=== PATIENT | male | born 1955 | race Caucasian/White ===

== ENCOUNTER 2016-09-29 11:25 | Inpatient (IN) | payer OTHER ==
[~2016-09-29] VITALS: Ht 177.8 cm; Wt 122.3 kg
[~2016-09-29 11:25] MED LIST: AMAN50SY PO; AMLO5TAB2 PO; DOCU100C PO; FURO40TA PO; KETOC2%T TOPICAL; LORA-373 PO; LURA80 PO; POTA-88 PO; PROP20TA3 PO; SERO300T PO; SODI1TAB PO; XARE20TA PO
[2016-09-29 12:00] VITALS: BP 145/86; PULSE 81; RESP 16; TEMP 99
[2016-09-29 12:05] VITALS: BP 145/86; PULSE 81; RESP 18; O2SAT 95
--- NOTE | 2016-09-29 12:05 | PD ---
HPI Chief Complaint: Psychiatric Symptoms Time Seen by Provider: 11:58 Travel History International Travel<30 days: No Contact w/Intl Traveler<30days: No Traveled to known affect area: No History of Present Illness HPI 61-year-old male that presents to the ED for evaluation of psych. Patient has a chronic history of schizophrenia and he was just released from [facility]. Apparently patient has been more seclusive and aggressive towards staff at the facility where he staying at. Patient denies any medical complaints. On my initial examination patient states that he doesn't want talk to anybody unless I tell him why he was Pritchard acted. Per patient there is nothing wrong with him. Per patient he is not aggressive a healing seen things. Per patient he refuses any blood work or anything. Patient denies any injuries. Again his very aggressive but at this time his calm and with redirection he calms down. Patient was just discharged from [facility]. PFS Past Medical History High Cholesterol: Yes Diminished Hearing: No Psychiatric: Yes Schizophrenia: Yes (HX OF FINE TREMORS(UPPER LIMBS)) Past Surgical History Neurologic Surgery: Yes (FUSSION OF [id number]) Social History Alcohol Use: No (DENIES) Tobacco Use: No Substance Use: No (DENIES) Allergies-Medications (Allergen,Severity, Reaction): Coded Allergies: No Known Allergies (Verified , 01/23/14) Reported Meds & Prescriptions Reported Meds & Active Scripts Active Amantadine HCl (Amantadine Hcl) 50 Mg/5 Ml Syrp 100 Mg PO BID 60 Days Reported Nizoral Topical Shampoo (Ketoconazole) 2% Sham 1 Applic TOPICAL DAILY Apply to scalp Seroquel (Quetiapine Fumarate) 300 Mg Tab 600 Mg PO HS Propranolol (Propranolol HCl) 20 Mg Tab 20 Mg PO BID Docusate Sodium 100 Mg Cap 100 Mg PO BID Sodium Chloride 1 Gm Tab 1 Gm PO BID Lorazepam 0.5 Mg Tab 0.5 Mg PO TID PRN Latuda (Lurasidone) 80 Mg Tab 80 Mg PO DAILY Xarelto (Rivaroxaban) 20 Mg Tab 20 Mg PO WITH DINNER Klor-Con M10 (Potassium Chloride Microencaps) 10 Meq Tab 10 Meq PO DAILY Furosemide 40 Mg Tab 40 Mg PO DAILY Amlodipine (Amlodipine Besylate) 5 Mg Tab 5 Mg PO DAILY Review of Systems ROS Limitations: Uncooperative Except as stated in HPI: all other systems reviewed are Neg Physical Exam Exam Limitations: Uncooperative Narrative GENERAL: SKIN: Warm and dry. HEAD: Atraumatic. Normocephalic. EYES: Pupils equal and round. No scleral icterus. No injection or drainage. ENT: No nasal bleeding or discharge. Mucous membranes pink and moist. Tongue is midline. No uvula deviation. NECK: Trachea midline. No JVD. CARDIOVASCULAR: Regular rate and rhythm. No murmurs, S3, S4. RESPIRATORY: No accessory muscle use. Clear to auscultation. Breath sounds equal bilaterally. GASTROINTESTINAL: Abdomen soft, non-tender, nondistended. Hepatic and splenic margins not palpable. MUSCULOSKELETAL: Extremities without clubbing, cyanosis, or edema. No obvious deformities. Patient has full range of motion of the upper and lower extremities bilaterally. Patient has 2+ pulses bilaterally. NEUROLOGICAL: Awake and alert. No obvious cranial nerve deficits. Motor grossly within normal limits. Five out of 5 muscle strength in the arms and legs. Normal speech. PSYCHIATRIC: Aggressive mood and affect; insight and judgment questionable Data Data Orders Drug Screen, Random Urine (09/29/16 11:32) Alcohol (Ethanol) (09/29/16 11:32) Psych Screen (09/29/16 11:32) ^ Sitter (09/29/16 11:40) MDM Medical Decision Making Medical Screen Exam Complete: Yes Emergency Medical Condition: Yes Medical Record Reviewed: Yes Differential Diagnosis Depression versus suicidal ideation versus anxiety versus adjustment disorder versus mood disorder versus bipolar disorder versus schizophrenia versus paranoid disorder versus psychosis versus substance abuse versus alcohol abuse versus alcohol induced psychosis versus homicidality addition versus cutting versus personality disorder Narrative Course 61-year-old male that presents to the ED for evaluation of Pritchard act. Patient was properly examined and was found to have signs and symptoms consistent with appears to be psychiatric. Patient is very aggressive. Patient was just here for evaluation of this and admitted to act. Patient refusing lab work. At this time I do not see any need for new lab work. I spoke with Dr. Mary patient's PCP who actually came here and saw him who is the one who recommended that police recontacted for the Pritchard act. He wants to be consulted on the patient when he gets admitted for the psychiatric issue. Urine was obtained from the patient. Urine was negative for acute disease. Patient was medically clear. Okay to be seen by psych. Mental health screening was discussed with the patient. Diagnosis Primary Impression: Schizophrenia Qualified Code: F20.89 - Other schizophrenia George Abreu Sep 29, 2016 12:05
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
[2016-09-29 12:39] LABS: AMPHETAMINE, URINE NEG (NEG); BARBITURATES, URINE NEG (NEG); COCAINE, URINE NEG (NEG)
[2016-09-29 13:48] VITALS: BP 150/72; PULSE 78; RESP 18; TEMP 98; O2SAT 92
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
[2016-09-29] MEDS ORDERED: ACETAMINOPHEN 325 MG TAB PO PRN (16:00)
[2016-09-29] MEDS ORDERED: MAGNESIUM HYDROXIDE SUSP 30 ML CUP PO PRN (16:00)
[2016-09-29 18:24] VITALS: BP 159/90; PULSE 77; RESP 20; TEMP 97.8
[2016-09-29] MEDS: RIVAROXABAN 20 MG TAB PO SCH (20:45)
[2016-09-29] MEDS: PROPRANOLOL HCL 20 MG TAB PO SCH (20:47)
[2016-09-30] MEDS: LORazepam 0.5 MG TAB PO PRN (05:32)
[2016-09-30 05:58] VITALS: BP 163/101; PULSE 95; RESP 18; TEMP 97.4; O2SAT 97
[2016-09-30 07:56] LABS: ANION GAP 10 MEQ/L (5-15); BICARBONATE 24.4 MEQ/L (21.0-32.0); BLOOD UREA NITROGEN 13 MG/DL (7-18); CHLORIDE 102 MEQ/L (98-107); GLOMERULAR FILTRATION RATE 76 ML/MIN (>89); POTASSIUM 3.7 MEQ/L (3.5-5.1); SODIUM (NA) 136 MEQ/L (136-145)
[2016-09-30 07:58] LABS: HDL CHOLESTEROL 48.7 MG/DL (40.0-60.0); LDL CHOLESTEROL 161 MG/DL (0-99)
[2016-09-30] MEDS: POTASSIUM CHLORIDE 10 MEQ CONTROLLED RELEASE TAB PO SCH (08:57)
[2016-09-30] MEDS: PROPRANOLOL HCL 20 MG TAB PO SCH ×2 (08:57→20:15)
[2016-09-30] MEDS ORDERED: KETOCONAZOLE 2% SHAMPOO 120 ML BTL TOPICAL SCH (09:00)
[2016-09-30] MEDS ORDERED: amLODIPine BESYLATE 5 MG TAB PO SCH (09:00)
--- NOTE | 2016-09-30 09:42 | HHI.FPPN ---
Subjective Remarks AGITATED PSYCHOTIC D/W RN Objective Vitals Vital Signs Date Time Temp Pulse Resp B/P Pulse Ox O2 Delivery O2 Flow Rate FiO2 09/30/16 05:58 97.4 95 18 163/101 97 09/29/16 18:24 97.8 77 20 159/90 09/29/16 13:48 98.0 78 18 150/72 92 09/29/16 12:05 81 18 145/86 95 Room Air 09/29/16 12:05 82 18 09/29/16 12:00 99.0 81 16 145/86 Result Diagram: 09/30/16 0712 Objective Remarks GENERAL: SKIN: Warm and dry. HEAD: Normocephalic. EYES: No scleral icterus. No injection or drainage. NECK: Supple, trachea midline. No JVD or lymphadenopathy. CARDIOVASCULAR: Regular rate and rhythm without murmurs, gallops, or rubs. RESPIRATORY: Breath sounds equal bilaterally. No accessory muscle use. GASTROINTESTINAL: Abdomen soft, non-tender, nondistended. MUSCULOSKELETAL: No cyanosis, or edema. BACK: Nontender without obvious deformity. No CVA tenderness. NEURO: PSYCHOTIC Medications and IVs Current Medications Medications (Trade) Dose Ordered Sig/Josephine Route Start Time Stop Time Status Last Admin (Norvasc) 5 mg DAILY PO 09/30/16 09:00 09/30/16 08:57 (Ativan) 0.5 mg TID PRN PO 09/29/16 12:45 09/30/16 05:32 (KCl) 10 meq DAILY PO 09/30/16 09:00 09/30/16 08:57 (Inderal) 20 mg BID PO 09/29/16 21:00 09/30/16 08:57 (Tylenol) 650 mg Q4H PRN PO 09/29/16 16:00 (Milk Of Magnesia Liq) 30 ml DAILY PRN PO 09/29/16 16:00 A/P Assessment and Plan AMS HOMICIDAL SCHIZOPHRENIA PE, ON XARELTO HYPONATREMIA DUE TO ANTIPSYCHOTICS HTN HPLD TREMORS WEIGHT GAIN PLAN: INCREASE NORVASC TO TEN MG QD. PT MEDICALLY CLEARED FOR INPT PSYCHIATRY UNIT. PSYCHIATRIC MEDICATIONS PER PSYCHIATRIST. CORRECTION IS UNWILLING TO TAKE HIM BACK UNFORTUNATELY. I WILL HELP WITH PLACEMENT. XARELTO FOR PE HOLD NACL TABS AND FOLLOWUP BMP MONDAY. NO ANTIHYPERLIPIDEMICS FOR NOW DUE TO DRUG INTERACTIONS. ATIVAN PRN. BP MEDS ABOVE. MONITOR HTN. Joey Mary MD Sep 30, 2016 09:42
--- NOTE | 2016-09-30 12:34 | MH ---
cc: JULISA LOPEZ MD DATE OF ADMISSION 09/29/2016 DATE OF 1955 ADMISSION DIAGNOSES 1. Other psychotic disorder, F28. Rule out schizophrenia, paranoid type. LEGAL STATUS The patient is presently capacitated to sign into the hospital voluntarily and consent for medications. HISTORY OF PRESENT ILLNESS Mr. Mendiola is a 61-year-old male with a history of psychotic disorder who presents on a Pritchard ACT from his [facility] facility alleging that the patient has been threatening staff and has been having trouble with reality testing. The patient was apparently somewhat aggressive in the ED, but has been calm and pleasant since arriving on the unit per nursing staff. Reviewing the electronic medical record, I see the patient was admitted here most recently in December of [address] Vaughn, but subsequently under Dr. Salinas. The patient seen and examined. The case discussed with nursing staff, who report that the patient has been calm and pleasant since arriving on the inpatient psychiatric unit. Contrary to the progress note from Dr. Mary, I find the patient to be quite calm and pleasant. He tells me that he has recently acquired [facility] with a friend and wanted to fire some of the staff there because he believes he owns the place. He says that they were not treating him "up to par" and when I review with him the allegations in the Pritchard ACT of aggression, the patient alleges that it was in fact the staff members at the facility who were being aggressive with him. He says that they were insisting that he take psychotropic medications, but he believes he has a "supreme court order" that he is not to be forced to take medications. He does not think he has a mental illness problem. He denies any SI or HI. He denies any AVH. Besides the delusions noted above, I can elicit no frankly delusional beliefs. He appears to be in good spirits and there does not appear to be any issues with mood. He does have some odd thoughts about medications, for example, believing that he needs to take the spice Cumin and that this is somehow related to Coumadin. He also explains that Valium is related to Valerian. PAST PSYCHIATRIC HISTORY The patient does not agree with any previous psychiatric diagnoses that he has been given. I see that his discharge diagnosis from his hospitalization in 2013 was psychosis NOS. He reports that he has been admitted to [facility] twice since his 2014 admission here. He denies a history of suicide attempts. 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 FAMILY HISTORY The patient denies any family history of psychiatric illness. CHEMICAL DEPENDENCY HISTORY The patient denies any history of abuse of drugs or alcohol. SOCIAL HISTORY The patient reports that he has resided at [facility] for approximately three years seven months. He says that he is recently , but has known his for the past 28 months. He believes that he has a [id number] child although the voracity of this is unclear. He says that he use to work for the [employer] service and also served in the [employer]. PAST MEDICAL HISTORY Includes a history of PE on Xarelto. Please see electronic medical record. MEDICATIONS Outpatient medication list is not available on the chart for my review. I do see that he is on Xarelto and Inderal twice daily per the hospitalist customer support consultant. ALLERGIES No known allergies. REVIEW OF SYSTEMS No reported headache, vision or hearing changes, chest pain, shortness of breath, bowel or bladder issues. No other somatic complaints. PHYSICAL EXAMINATION Physical examination has been completed by the hospitalist customer support consultant and the patient has been medically cleared for inpatient psychiatry. On my examination today, the patient appears to be in no acute physical distress. No abnormal motor movements noted. Labs and vital signs reviewed. CBC is not available. CMP is significant for a mildly decreased GFR of 76. Lipid panel reviewed. Hemoglobin A1c is pending. Toxicology negative. Alcohol level was undetectable. MENTAL STATUS EXAM The patient is casually dressed. He is well-groomed. He is awake and alert and oriented to person and hospital at least. No abnormal motor movements noted. Steady gait and station. Speech is within normal limits for rate, tone and volume. Language and fund of knowledge seem adequate and appropriate for age. Mood is fair and affect is fairly euthymic, full and reactive. Thought process linear with a delusional system. No loosening of associations. Paranoid delusions are present. Denies audiovisual hallucinations. Denies SI or HI. Insight and judgment are unclear at present. ASSESSMENT/PLAN This is a 61-year-old male with psychiatric history as detailed above who presents on a Pritchard ACT from his [facility] facility alleging aggression. He was apparently a little agitated in the ED, but has been quite calm and pleasant on the inpatient psychiatric unit. Indeed today, I find him to be pleasant and cooperative on my examination. He does have the paranoid delusion that he owns the [facility] and wants to fire some people there and I suspect that this was the ana cristina of his argument with the staff there. He also has allegedly been declining medications. [facility] at the facility now even though he is calm because of staffing issues with the weekend. We will hold him over the weekend and see if he accepts medications. Admit inpatient, voluntary status. Counselor to obtain up-to-date medication reconciliation form from facility so that I can reconcile with psychiatric medications. Hospitalist is already following in consultation. Ativan as needed for anxiety. Vitals every shift. Counselor to see. Disposition planning. Check a CBC. Estimated length of stay 3-5 days. Julisa DURHAM /11:56 AM /12:16 PM SHAE
[2016-09-30 14:39] LABS: HEMOGLOBIN A1a 1.2 %; HEMOGLOBIN A1b 1.5 %; HEMOGLOBIN Ao 85.9 %; HEMOGLOBIN LA1C 1.9 %; HEMOGLOBIN P3 3.4 %
[2016-09-30 16:20] LABS: AUTOMATED NEUTROPHIL # 5.7 TH/MM3 (1.8-7.7); BASOPHIL # 0.1 TH/MM3 (0-0.2); BASOPHIL % 0.9 % (0.0-2.0); EOSINOPHIL # 0.3 TH/MM3 (0-0.4); EOSINOPHIL % 3.3 % (0.0-4.0); HEMO FLAGS DIFF FINAL; LYMPH % 18.1 % (9.0-44.0); LYMPHOCYTE # 1.6 TH/MM3 (1.0-4.8); MEAN CELL VOLUME 85.8 FL (80.0-100.0); MEAN CORPUSCULAR HGB CONC 33.9 % (32.0-36.0); MONO % 11.9 % (0.0-8.0); NEUT % 65.8 % (16.0-70.0); PLATELET COUNT 263 TH/MM3 (150-450); RED BLOOD COUNT 4.78 MIL/MM3 (4.50-5.90); RED CELL DISTRIBUTION WIDTH 15.7 % (11.6-17.2); WHITE BLOOD COUNT 8.7 TH/MM3 (4.0-11.0)
[2016-09-30] MEDS ORDERED: AMAN100C18 PO (17:52)
[2016-09-30] MEDS: RIVAROXABAN 20 MG TAB PO SCH (17:54)
[2016-09-30] MEDS: AMANTADINE HCL 100 MG CAP PO SCH (20:16)
[2016-09-30 20:21] VITALS: BP 152/73; PULSE 72; RESP 18; TEMP 98.1; O2SAT 95
[2016-09-30] MEDS ORDERED: QUEtiapine FUMARATE 300 MG TAB PO SCH (21:00)
[2016-10-01 06:10] VITALS: BP 196/88; PULSE 77; RESP 18; TEMP 98.1; O2SAT 96
[2016-10-01] MEDS: LORazepam 0.5 MG TAB PO PRN (06:11)
[2016-10-01 07:00] VITALS: BP 151/81; PULSE 71; RESP 18; TEMP 98; O2SAT 95
[2016-10-01] MEDS ORDERED: LURASIDONE 80 MG TAB PO SCH (09:00)
[2016-10-01] MEDS: POTASSIUM CHLORIDE 10 MEQ CONTROLLED RELEASE TAB PO SCH (09:21)
[2016-10-01] MEDS: PROPRANOLOL HCL 20 MG TAB PO SCH ×2 (09:21→20:10)
[2016-10-01 10:00] VITALS: BP 172/89; PULSE 73
--- NOTE | 2016-10-01 16:21 | HHI.PYPN ---
Subjective Remarks Patient seen and examined with nurse. Chart reviewed. Case discussed with nursing staff who reports patient is somewhat rambling on his previous delusional themes but hasn't been agitated or violent. On my examination today , the patient reports that he is sleeping well and eating well. He denies any issues, psychiatric or otherwise. He doesn't see himself as having a mental illness issue and has declined to sign for consents for medications. I do try to work with him to build insight into his mental illness issues, and he seems more receptive to the notion of accepting psychotropic medications towards the end of our conversation. Denies side effects from medications he is accepting. Review of Systems ROS Limitations: Psychotic, Poor Historian Other No physical complaints today. In particular denies any chest pain, shortness of breath or other symptoms of symptomatic hypertension. Objective Alert: Yes [place]: Person (O x 3) Mood: Calm Affect: Other (full and reactive) Memory Intact: Comment (intact) Hallucinations: Other (no AVH) Delusions: Yes Delusion Type: Paranoid Suicidal: Ideation (no SI) Homicidal: Ideation (no HI) Insight/Judgement Poor Remarks Mild resting hand tremor. No other motoric abnormalities noted. Thought processes fairly linear within delusional system. Speech within normal limits for rate, tone and volume. Labs Labs reviewed. No new labs. Vitals/IOs Vital Signs Date Time Temp Pulse Resp B/P Pulse Ox O2 Delivery O2 Flow Rate FiO2 10/01/16 10:00 73 172/89 10/01/16 07:00 98.0 18 95 09/29/16 12:05 Room Air Assessment & Plan Problem List: (1) Other psychotic disorder not due to a substance or known physiological condition ICD Code: F28 Assessment & Plan Add clonidine as needed for hypertension. I will revisit the possibility of accepting psychotropic medications with the patient tomorrow. My hope is to convince the patient to voluntarily except psychotropic medications because the larger issue in the long-term is adherence in an outpatient setting. I will recheck a BMP in the morning. Continue other medications and care as ordered. Justification for Cont. Inpt. Risk for decompensation without successful placement back at his facility or similar. Discharge Planning Monitor over the weekend, endeavor to get patient to accept psychotropics, transition back to facility. Request HC Surrog/Guard Advoc?: No Marques Fregoso MD Oct 01, 2016 16:21
[2016-10-01] MEDS ORDERED: cloNIDine HCL 0.1 MG TAB PO PRN (17:00)
[2016-10-01] MEDS: RIVAROXABAN 20 MG TAB PO SCH (18:03)
[2016-10-01 19:23] VITALS: BP 161/82; PULSE 76; RESP 18; O2SAT 95
[2016-10-01] MEDS: AMANTADINE HCL 100 MG CAP PO SCH (20:10)
[2016-10-02 00:19] VITALS: BP_SYST 183; BP_DIAS 80; BP_DIAS 88; PULSE 76
[2016-10-02 05:35] VITALS: BP 102/60; PULSE 78; RESP 18; TEMP 97.9; O2SAT 97
[2016-10-02] MEDS: POTASSIUM CHLORIDE 10 MEQ CONTROLLED RELEASE TAB PO SCH (08:46)
[2016-10-02] MEDS: PROPRANOLOL HCL 20 MG TAB PO SCH ×2 (08:46→21:55)
--- NOTE | 2016-10-02 09:44 | HHI.PYPN ---
Subjective Remarks Patient seen and examined with nursing staff. Chart reviewed. Case discussed with nursing staff who reports patient is somewhat internally stimulated but has been calm and pleasant and no behavioral problem. On my examination today, the patient notes that his blood pressure was improved this morning and so he wonders if he needs his blood pressure medications. I explained to the patient that his blood pressure is improved precisely because he has been accepting his blood pressure medications and so he should continue to take them. He denies any SI, HI or AVH. Remains ambivalent about accepting psychotropic medications but agrees to accept Geodon after discussion of the risks and benefits. Review of Systems Other No reported physical complaints today Objective Alert: Yes [place]: Person (once again O x 3) Mood: Calm Affect: Other (remains full and reactive) Memory Intact: Comment (intact) Hallucinations: Other (denies AVH) Delusions: Yes Delusion Type: Paranoid (doesn't seem terribly bothersome) Suicidal: Ideation (denies SI) Homicidal: Ideation (denies HI) Insight/Judgement Fair at best Remarks Mild resting hand tremor but no other motoric abnormalities noted. Thought process linear and delusional material is unobtrusive. Speech within normal limits for rate, tone and volume. Patient is casually dressed and well-groomed and certainly maintaining basic hygiene. Labs Labs reviewed. No new labs. Vitals/IOs Vital Signs Date Time Temp Pulse Resp B/P Pulse Ox O2 Delivery O2 Flow Rate FiO2 10/02/16 05:35 97.9 78 18 102/60 97 09/29/16 12:05 Room Air Assessment & Plan Problem List: (1) Other psychotic disorder not due to a substance or known physiological condition ICD Code: F28 Assessment & Plan Add Geodon 40 mg twice daily with meals. Continue other medications as ordered. Continue other care as ordered. Justification for Cont. Inpt. Adjusting medications. Discharge Planning Monitor for tolerability of Geodon. Return to facility once this has been done. Request HC Surrog/Guard Advoc?: No Marques Fregoso MD Oct 02, 2016 09:44
[2016-10-02] MEDS: ZIPRASIDONE HCL 40 MG CAP PO SCH ×2 (10:00→17:32)
[2016-10-02 12:00] VITALS: BP 135/78; PULSE 71
[2016-10-02] MEDS: RIVAROXABAN 20 MG TAB PO SCH (17:33)
[2016-10-02 19:36] VITALS: BP 120/75; PULSE 77; RESP 18; TEMP 100.2; O2SAT 98
[2016-10-02] MEDS: AMANTADINE HCL 100 MG CAP PO SCH (21:00)
[2016-10-03 06:11] VITALS: BP 170/80; PULSE 74; RESP 18; TEMP 97.8; O2SAT 97
[2016-10-03] MEDS: PROPRANOLOL HCL 20 MG TAB PO SCH ×2 (08:34→20:35)
[2016-10-03] MEDS: ZIPRASIDONE HCL 40 MG CAP PO SCH ×2 (08:35→18:00)
[2016-10-03] MEDS: POTASSIUM CHLORIDE 10 MEQ CONTROLLED RELEASE TAB PO SCH (08:35)
[2016-10-03] MEDS ORDERED: AMLO5TAB2 PO (10:26)
[2016-10-03] MEDS ORDERED: ZIPR40 PO (10:26)
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
[2016-10-03 10:56] VITALS: BP 131/87; PULSE 78
[2016-10-03 12:55] LABS: POTASSIUM 4.1 MEQ/L (3.5-5.1)
[2016-10-03] MEDS: RIVAROXABAN 20 MG TAB PO SCH (18:00)
[2016-10-03 18:44] VITALS: BP 158/86; PULSE 86; RESP 17; TEMP 97.4; O2SAT 99
[2016-10-03] MEDS: AMANTADINE HCL 100 MG CAP PO SCH (20:35)
[2016-10-04] MEDS: ZIPRASIDONE HCL 40 MG CAP PO SCH (08:55)
[2016-10-04] MEDS: PROPRANOLOL HCL 20 MG TAB PO SCH (08:56)
[2016-10-04] MEDS: POTASSIUM CHLORIDE 10 MEQ CONTROLLED RELEASE TAB PO SCH (08:56)
--- NOTE | 2016-10-04 10:46 | HHI.FPPN ---
Subjective Remarks INCR BP FEVER NOTED C/O MALAISE AND TREMORS D/W RN WANTS TO TALK ABOUT GOING BACK TO [facility] Objective Vitals Vital Signs Date Time Temp Pulse Resp B/P Pulse Ox O2 Delivery O2 Flow Rate FiO2 10/03/16 18:44 97.4 86 17 158/86 99 10/03/16 10:56 78 131/87 Result Diagram: 09/30/16 0712 10/03/16 1221 Objective Remarks GENERAL: SKIN: Warm and dry. HEAD: Normocephalic. EYES: No scleral icterus. No injection or drainage. NECK: Supple, trachea midline. No JVD or lymphadenopathy. CARDIOVASCULAR: Regular rate and rhythm without murmurs, gallops, or rubs. RESPIRATORY: Breath sounds equal bilaterally. No accessory muscle use. GASTROINTESTINAL: Abdomen soft, non-tender, nondistended. MUSCULOSKELETAL: No cyanosis, or edema. BACK: Nontender without obvious deformity. No CVA tenderness. NEURO: PSYCHOTIC Medications and IVs Current Medications Medications (Trade) Dose Ordered Sig/Josephine Route Start Time Stop Time Status Last Admin (Ativan) 0.5 mg TID PRN PO 09/29/16 12:45 10/01/16 06:11 (KCl) 10 meq DAILY PO 09/30/16 09:00 10/04/16 08:56 (Inderal) 20 mg BID PO 09/29/16 21:00 10/04/16 08:56 (Tylenol) 650 mg Q4H PRN PO 09/29/16 16:00 (Milk Of Magnesia Liq) 30 ml DAILY PRN PO 09/29/16 16:00 (Norvasc) 10 mg DAILY PO 10/01/16 09:00 10/04/16 08:56 (Symmetrel) 100 mg HS PO 09/30/16 21:00 10/01/16 20:10 (Catapres) 0.1 mg Q8HR PRN PO 10/01/16 17:00 10/02/16 00:19 (Geodon) 40 mg BIDPC PO 10/02/16 10:00 10/04/16 08:55 Urinary Catheter: No Vascular Central Line Catheter: No A/P Assessment and Plan AMS HOMICIDAL SCHIZOPHRENIA PE, ON XARELTO HYPONATREMIA DUE TO ANTIPSYCHOTICS HTN HYPERGLYCEMIA, NOT DM. NORMAL A1C. HPLD TREMORS WEIGHT GAIN PLAN: PSYCH MEDS WORKING WELL. BMP MONDAY. INCREASED NORVASC TO TEN MG QD. PT MEDICALLY CLEARED FOR INPT PSYCHIATRY UNIT. PSYCHIATRIC MEDICATIONS PER PSYCHIATRIST. [facility] IS UNWILLING TO TAKE HIM BACK UNFORTUNATELY. I WILL HELP WITH PLACEMENT. CLOVER FOR PE HOLD NACL TABS AND FOLLOWUP BMP MONDAY. NO ANTIHYPERLIPIDEMICS FOR NOW DUE TO DRUG INTERACTIONS. ATIVAN PRN. BP MEDS ABOVE. MONITOR HTN. Joey Mary MD Oct 04, 2016 10:46
--- NOTE | 2016-10-04 13:50 | HHI.PYPN ---
Subjective Remarks Patient seen and examined with counselor. Chart reviewed. Case discussed in treatment team with nurse, counselor an occupational therapist. No problematic behaviors per nursing staff. On my examination today, patient is in good spirits. He denies any SI, HI or AVH. No overt signs of psychosis. He denies side effects from medications. Counselor informs me that patient has been accepted at [facility] and may be transferred there today. Patient is agreeable to the transfer. Review of Systems ROS Limitations: Poor Historian Other No physical complaints today Objective Alert: Yes [place]: Person, Place, Date, Situation Mood: Calm Affect: Euthymic Memory Intact: Comment (intact) Hallucinations: Other (denies AVH) Delusions: No Delusion Type: Other (no overt delusional material) Suicidal: Ideation (denies suicidal ideation) Homicidal: Ideation (denies homicidal ideation) Insight/Judgement Fair at best Remarks Resting hand tremor persists. No other motoric abnormalities noted. Thought process linear. Speech within normal limits for rate, tone and volume. Labs Labs reviewed. BMP from yesterday noted. Vitals/IOs Vital Signs Date Time Temp Pulse Resp B/P Pulse Ox O2 Delivery O2 Flow Rate FiO2 10/03/16 18:44 97.4 86 17 158/86 99 Assessment & Plan Problem List: (1) Other psychotic disorder not due to a substance or known physiological condition ICD Code: F28 Assessment & Plan Patient appears to be doing well and is psychiatrically stable for discharge today to [facility]. Follow up with outpatient psychiatry and also with primary care. Justification for Cont. Inpt. Discharged today Discharge Planning To [facility] today Request HC Surrog/Guard Advoc?: No Marques Fergoso MD Oct 04, 2016 13:50
== END 2016-10-04 16:20 | DRG 885 ==
LOC: NEPA 11:25 → NEDA 15:55 → H270 17:30
PROVIDERS: ADMIT Psychiatry & Neurology Psychiatry; ATTEND Psychiatry & Neurology Psychiatry
DX: F28 Other psychotic disorder not due to a substance or known physiological condition (principal); I26.99 Other pulmonary embolism without acute cor pulmonale; E87.1 Hypo-osmolality and hyponatremia; F20.1 Disorganized schizophrenia; I10 Essential (primary) hypertension; E78.00 Pure hypercholesterolemia, unspecified; I25.2 Old myocardial infarction; R25.1 Tremor, unspecified; R45.850 Homicidal ideations; R73.9 Hyperglycemia, unspecified; Z79.01 Long term (current) use of anticoagulants; Z91.14 Patient's other noncompliance with medication regimen; Z98.1 Arthrodesis status
CPT/HCPCS: 80048; 80061; 80301; 80320; 83036; 85025; 99285; G0479

== ENCOUNTER 2016-12-19 01:07 | Inpatient (IN) | payer OTHER ==
[~2016-12-19] VITALS: Ht 177.8 cm; Wt 121.4 kg
[~2016-12-19 01:07] MED LIST changes: +AMAN100C18 PO; -AMAN50SY PO; -DOCU100C PO; -FURO40TA PO; -LURA80 PO; -SERO300T PO; +ZIPR40 PO
[2016-12-19 01:42] VITALS: BP 141/70; PULSE 72; RESP 14; TEMP 98.5; O2SAT 98
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
[2016-12-19 04:26] LABS: AUTOMATED NEUTROPHIL # 5.9 TH/MM3 (1.8-7.7); BASOPHIL # 0.1 TH/MM3 (0-0.2); BASOPHIL % 1.1 % (0.0-2.0); EOSINOPHIL # 0.3 TH/MM3 (0-0.4); EOSINOPHIL % 2.6 % (0.0-4.0); HEMATOCRIT 40.2 % (39.0-51.0); HEMO FLAGS DIFF FINAL; LYMPHOCYTE # 2.4 TH/MM3 (1.0-4.8); MEAN CELL VOLUME 85.7 FL (80.0-100.0); MEAN CORPUSCULAR HGB CONC 33.9 % (32.0-36.0); MONO % 10.9 % (0.0-8.0); NEUT % 60.4 % (16.0-70.0); PLATELET COUNT 312 TH/MM3 (150-450); RED BLOOD COUNT 4.69 MIL/MM3 (4.50-5.90); RED CELL DISTRIBUTION WIDTH 14.7 % (11.6-17.2); WHITE BLOOD COUNT 9.8 TH/MM3 (4.0-11.0)
[2016-12-19 04:33] LABS: AMPHETAMINE, URINE NEG (NEG); BARBITURATES, URINE NEG (NEG); COCAINE, URINE NEG (NEG)
[2016-12-19 04:39] LABS: ANION GAP 11 MEQ/L (5-15); AST (GOT) 22 U/L (15-37); BICARBONATE 24.8 MEQ/L (21.0-32.0); BLOOD UREA NITROGEN 7 MG/DL (7-18); CHLORIDE 96 MEQ/L (98-107); GLOMERULAR FILTRATION RATE 77 ML/MIN (>89); SODIUM (NA) 132 MEQ/L (136-145)
[2016-12-19 04:41] LABS: ALKALINE PHOSPHATASE 114 U/L (45-117); ALT (GPT) 33 U/L (12-78); TOTAL BILIRUBIN ADULT 0.3 MG/DL (0.2-1.0)
[2016-12-19] MEDS ORDERED: LEVEMIR SQ (12:35)
[2016-12-19] MEDS ORDERED: [UNRECOGNIZED DRUG - CODE] (12:35)
[2016-12-19] MEDS ORDERED: NOVOLOGP2 SQ (12:35)
[2016-12-19 14:05] VITALS: BP 156/88; PULSE 78; RESP 17; O2SAT 96
--- NOTE | 2016-12-19 14:29 | EKG ---
Date Performed: 12/19/2016 Time Performed: 01:48:11 PTAGE: 61 years EKG: Sinus rhythm NORMAL ECG PREVIOUS TRACING : 10/16/2011 10.04 Compared to prior tracing no significant change DOCTOR: Tre Moore Interpretating Date/Time 12/19/2016 14:28:44
[2016-12-19 18:48] VITALS: BP 156/71; PULSE 94; RESP 18; O2SAT 96
[2016-12-19 22:44] VITALS: BP 164/80; PULSE 103; RESP 19; O2SAT 98
[2016-12-20] MEDS ORDERED: ACETAMINOPHEN 325 MG TAB PO PRN ×2 (02:00→12:45)
[2016-12-20] MEDS ORDERED: diphenhydrAMINE HCL 50 MG/ML VIAL IM PRN (02:00)
[2016-12-20 02:20] VITALS: BP 158/73; PULSE 99; RESP 18; TEMP 97.9; O2SAT 95
[2016-12-20 06:01] VITALS: BP 133/59; PULSE 84; RESP 16; TEMP 99; O2SAT 98
[2016-12-20] MEDS: NICOTINE 21 MG/24 HR PATCH T-DERMAL SCH (09:00)
[2016-12-20] MEDS: ZIPRASIDONE HCL 40 MG CAP PO SCH ×2 (09:30→20:50)
[2016-12-20] MEDS: POTASSIUM CHLORIDE 10 MEQ CONTROLLED RELEASE TAB PO SCH (09:30)
[2016-12-20] MEDS: PROPRANOLOL HCL 20 MG TAB PO SCH ×2 (09:31→20:50)
[2016-12-20] MEDS ORDERED: cloNIDine HCL 0.1 MG TAB PO PRN (10:45)
[2016-12-20] MEDS: LISINOPRIL 10 MG TAB PO SCH (10:45)
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
[2016-12-20] MEDS ORDERED: MAGNESIUM HYDROXIDE SUSP 30 ML CUP PO PRN (12:45)
[2016-12-20] MEDS ORDERED: ALUMINUM/MAGNESIUM/SIMETH 30 ML CUP PO PRN (12:45)
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
[2016-12-20] MEDS: hydrOXYzine HCL 50 MG TAB PO PRN (17:50)
[2016-12-20] MEDS: RIVAROXABAN 20 MG TAB PO SCH (18:00)
[2016-12-20] MEDS: REMOVE OLD NICOTINE PATCH T-DERMAL SCH (20:54)
[2016-12-20] MEDS: AMANTADINE HCL 100 MG CAP PO SCH (23:00)
[2016-12-21 04:00] VITALS: BP 122/59; PULSE 71; RESP 18; TEMP 98.3; O2SAT 97
[2016-12-21 08:24] LABS: ANION GAP 8 MEQ/L (5-15); BICARBONATE 27.2 MEQ/L (21.0-32.0); BLOOD UREA NITROGEN 13 MG/DL (7-18); CHLORIDE 95 MEQ/L (98-107); GLOMERULAR FILTRATION RATE 84 ML/MIN (>89); HDL CHOLESTEROL 59.5 MG/DL (40.0-60.0); LDL CHOLESTEROL 93 MG/DL (0-99); POTASSIUM 4.1 MEQ/L (3.5-5.1); SODIUM (NA) 130 MEQ/L (136-145)
[2016-12-21] MEDS: ZIPRASIDONE HCL 40 MG CAP PO SCH (08:48)
[2016-12-21] MEDS: POTASSIUM CHLORIDE 10 MEQ CONTROLLED RELEASE TAB PO SCH (08:48)
[2016-12-21] MEDS: NICOTINE 21 MG/24 HR PATCH T-DERMAL SCH (08:48)
[2016-12-21] MEDS: LISINOPRIL 10 MG TAB PO SCH (08:48)
[2016-12-21] MEDS: PROPRANOLOL HCL 20 MG TAB PO SCH ×2 (08:48→20:51)
[2016-12-21] MEDS ORDERED: NICOTINE 21 MG/24 HR PATCH T-DERMAL SCH (09:00)
--- NOTE | 2016-12-21 11:24 | HHI.FPPN ---
Subjective Remarks psychotic agitated d/w RN Objective Vitals Vital Signs Date Time Temp Pulse Resp B/P Pulse Ox O2 Delivery O2 Flow Rate FiO2 12/21/16 04:00 98.3 71 18 122/59 97 Result Diagram: 12/19/16 0400 12/21/16 0720 Objective Remarks GENERAL: refuses most of exam, refuses to go to his room, pt in day room SKIN: Warm and dry. HEAD: Atraumatic. Normocephalic. EYES: No scleral icterus. No injection or drainage. NECK: Trachea midline. No JVD. MUSCULOSKELETAL: Extremities without clubbing, cyanosis, or edema. No obvious deformities. NEUROLOGICAL: Awake and alert. No obvious cranial nerve deficits. Motor grossly within normal limits. PSYCHIATRIC: delirious Medications and IVs Current Medications Medications (Trade) Dose Ordered Sig/Josephine Route Start Time Stop Time Status Last Admin (Atarax) 50 mg Q6H PRN PO 12/20/16 02:00 12/20/16 17:50 (Benadryl) 50 mg Q6H PRN PO 12/20/16 02:00 (Tylenol) 650 mg Q4H PRN PO 12/20/16 02:00 (Milk Of Magnesia Liq) 30 ml DAILY PRN PO 12/20/16 02:00 (Mag-Al Plus Susp Liq) 30 ml Q6H PRN PO 12/20/16 02:00 (Habitrol 21 Mg Patch.24 Hr) 1 patch DAILY T-DERMAL 12/20/16 09:00 Miscellaneous Information 1 HS T-DERMAL 12/20/16 21:00 (KCl) 10 meq DAILY PO 12/20/16 09:00 12/21/16 08:48 (Xarelto) 20 mg DAILY@18 PO 12/20/16 18:00 (Inderal) 20 mg BID PO 12/20/16 09:00 12/21/16 08:48 (Symmetrel) 100 mg HS PO 12/20/16 21:00 (Norvasc) 10 mg DAILY PO 12/20/16 09:00 12/21/16 08:48 (Geodon) 40 mg BID PO 12/20/16 09:00 12/21/16 08:48 (Catapres) 0.1 mg Q6H PRN PO 3/21/17 10:45 (Prinivil) 10 mg DAILY PO 12/20/16 10:45 12/21/16 08:48 A/P Assessment and Plan 1. Altered mental status. 2. Schizophrenia, decompensated. 3. Pulmonary embolism. 4. Hyponatremia . 5. Chronic edema. 6. Hyperlipidemia. 7. Hypertension. PLAN- bmp Norvasc 10 mg daily for blood pressure, however, may need to go down and change this as he has had quite a bit of edema; Potassium 10 mEq daily. Propranolol 20 mg b.i.d. Xarelto 20 mg daily. psych meds per Psychiatry. clonidine p.r.n. for systolic greater than 170. Added lisinopril 10 mg daily. Monitor hyponatremia, however, he has had recurrent hyponatremia due to antipsychotics. Joey Mary MD Dec 21, 2016 11:24 Added lisinopril 10 mg daily. Monitor hyponatremia, however, he has had recurrent hyponatremia due to antipsychotics. Joey Mary MD Dec 21, 2016 11:24
--- NOTE | 2016-12-21 13:47 | HHI.PYPN ---
Subjective Remarks Patient discussed with treatment team, including medication management, diagnosis, discharge recommendations, and placement issues. Chart review. Patient seen in dayroom with floor staff. Patient remains markedly paranoid vigilant with an irritated look on his face. He is reluctantly compliant with the medication though denies need for it. Continues to deny mental illness. States he wants to be discharged today. I did declined to do that. Will increase Geodon to 80 mg twice a day. Patient continues to show marked resistance to oral medication we may need to consider switching to medication that has a long-acting preparation such as an vagus sustain a or perhaps Abilify maintain a Review of Systems Except as stated in HPI: all other systems reviewed are Neg Objective Alert: Yes [place]: Person, Place Mood: Angry, Oppositional Affect: Labile, Restricted Memory Intact: Comment (poor) Hallucinations: Auditory (though denying he appears to be responding to internal stimuli) Delusions: Yes Delusion Type: Paranoid Suicidal: Ideation (denies) Homicidal: Ideation (denies) Insight/Judgement Very poor Labs Test 12/21/16 07:20 Sodium Level 130 MEQ/L Potassium Level 4.1 MEQ/L Chloride Level 95 MEQ/L Carbon Dioxide Level 27.2 MEQ/L Anion Gap 8 MEQ/L Blood Urea Nitrogen 13 MG/DL Creatinine 0.92 MG/DL Estimat Glomerular Filtration 84 ML/MIN Rate Random Glucose 96 MG/DL Calcium Level 8.3 MG/DL Triglycerides Level 92 MG/DL Cholesterol Level 171 MG/DL LDL Cholesterol 93 MG/DL HDL Cholesterol 59.5 MG/DL Cholesterol/HDL Ratio 2.87 RATIO Vitals/IOs Vital Signs Date Time Temp Pulse Resp B/P Pulse Ox O2 Delivery O2 Flow Rate FiO2 12/21/16 04:00 98.3 71 18 122/59 97 12/19/16 22:44 Room Air Assessment & Plan Problem List: (1) Schizophrenia ICD Code: F20.9 Assessment & Plan Estimated LOS: days patient continues paranoid delusional and psychotic, with little insight into his disease. Appears to be quite reluctantly compliant medications. Need to consider possibility of switching to a long-acting preparation Justification for Cont. Inpt. At this time patient will decompensate if placed in a lower level of care Discharge Planning To be determined Request HC Surrog/Guard Advoc?: Yes Problem Qualifiers (1) Schizophrenia: Qualified Code: F20.0 - Paranoid schizophrenia Jc Mcnamara MD Dec 21, 2016 13:47
[2016-12-21 17:19] LABS: HEMOGLOBIN A1b 1.4 %; HEMOGLOBIN Ao 86.1 %; HEMOGLOBIN LA1C 1.8 %; HEMOGLOBIN P3 3.5 %
[2016-12-21] MEDS: RIVAROXABAN 20 MG TAB PO SCH (18:00)
[2016-12-21 19:35] VITALS: BP 144/65; PULSE 88; RESP 18; TEMP 98.5; O2SAT 96
[2016-12-21] MEDS: ZIPRASIDONE HCL 80 MG CAP PO SCH (20:51)
[2016-12-21] MEDS: AMANTADINE HCL 100 MG CAP PO SCH (20:52)
[2016-12-21] MEDS: REMOVE OLD NICOTINE PATCH T-DERMAL SCH (20:56)
[2016-12-22 08:17] LABS: BICARBONATE 25.6 MEQ/L (21.0-32.0); POTASSIUM 4.8 MEQ/L (3.5-5.1)
[2016-12-22] MEDS: LISINOPRIL 10 MG TAB PO SCH (08:56)
[2016-12-22] MEDS: ZIPRASIDONE HCL 80 MG CAP PO SCH ×2 (08:56→20:35)
[2016-12-22] MEDS: PROPRANOLOL HCL 20 MG TAB PO SCH ×2 (08:57→20:35)
[2016-12-22] MEDS: POTASSIUM CHLORIDE 10 MEQ CONTROLLED RELEASE TAB PO SCH (08:57)
[2016-12-22] MEDS: NICOTINE 21 MG/24 HR PATCH T-DERMAL SCH (09:00)
--- NOTE | 2016-12-22 13:03 | HHI.PYPN ---
Subjective Remarks Patient seen in his room with floor staff [place], chart review, patient continues poor compliance with medications, denying his need for medication continues markedly paranoid confused and disorganized. We'll continue to offer the Geodon at 80 mg twice a day but if patient refuses will give Geodon 10 mg IM in its place Review of Systems Except as stated in HPI: all other systems reviewed are Neg Objective Alert: Yes [place]: Person, Place Mood: Angry, Oppositional Affect: Labile, Restricted Memory Intact: Comment (poor) Hallucinations: Auditory (though denying he appears to be responding to internal stimuli) Delusions: Yes Delusion Type: Paranoid Suicidal: Ideation (denies) Homicidal: Ideation (denies) Insight/Judgement Very poor Labs Test 12/22/16 07:20 Sodium Level 130 MEQ/L Potassium Level 4.8 MEQ/L Chloride Level 97 MEQ/L Carbon Dioxide Level 25.6 MEQ/L Anion Gap 7 MEQ/L Blood Urea Nitrogen 14 MG/DL Creatinine 0.82 MG/DL Estimat Glomerular Filtration 96 ML/MIN Rate Random Glucose 95 MG/DL Calcium Level 9.0 MG/DL Vitals/IOs Vital Signs Date Time Temp Pulse Resp B/P Pulse Ox O2 Delivery O2 Flow Rate FiO2 12/21/16 19:35 98.5 88 18 144/65 96 12/19/16 22:44 Room Air Intake and Output 12/21/16 12/21/16 12/22/16 08:00 16:00 00:00 Intake Total 240 ml 360 ml Balance 240 ml 360 ml Assessment & Plan Problem List: (1) Schizophrenia ICD Code: F20.9 Assessment & Plan Estimated LOS: days patient continues markedly psychotic paranoid and confused. Showing resistance to compliance with medications. Place a medication adjustment above Justification for Cont. Inpt. At this time patient would significantly decompensate the placed in a lower level of care Discharge Planning To be determined Request HC Surrog/Guard Advoc?: Yes Problem Qualifiers (1) Schizophrenia: Qualified Code: F20.0 - Paranoid schizophrenia Jc Mcnamara MD Dec 22, 2016 13:03
[2016-12-22] MEDS: RIVAROXABAN 20 MG TAB PO SCH (18:00)
[2016-12-22 19:04] VITALS: BP 161/81; PULSE 75; RESP 18; TEMP 98.1; O2SAT 96
[2016-12-22] MEDS: AMANTADINE HCL 100 MG CAP PO SCH (20:35)
[2016-12-22] MEDS: ZIPRASIDONE MESYLATE 20 MG VIAL IM SCH (20:36)
[2016-12-22] MEDS: REMOVE OLD NICOTINE PATCH T-DERMAL SCH (20:37)
[2016-12-23 06:15] VITALS: BP 150/70; PULSE 65; RESP 18; TEMP 98.7; O2SAT 97
[2016-12-23] MEDS: PROPRANOLOL HCL 20 MG TAB PO SCH ×2 (09:00→20:44)
[2016-12-23] MEDS: NICOTINE 21 MG/24 HR PATCH T-DERMAL SCH (09:00)
[2016-12-23] MEDS: ZIPRASIDONE MESYLATE 20 MG VIAL IM SCH ×2 (09:00→20:43)
[2016-12-23] MEDS: LISINOPRIL 10 MG TAB PO SCH (09:00)
[2016-12-23] MEDS: POTASSIUM CHLORIDE 10 MEQ CONTROLLED RELEASE TAB PO SCH (09:00)
[2016-12-23] MEDS: ZIPRASIDONE HCL 80 MG CAP PO SCH ×2 (09:07→20:36)
--- NOTE | 2016-12-23 13:18 | HHI.PYPN ---
Subjective Remarks Patient seen in day room with professor of nursing, patient somewhat quieter today somewhat less paranoia noted. When asked about auditory hallucinations became somewhat confused and disorganized. Patient has been reluctantly compliant with medications. For now continue treatment Review of Systems Except as stated in HPI: all other systems reviewed are Neg Objective Alert: Yes [place]: Person, Place Mood: Angry, Oppositional Affect: Labile, Restricted Memory Intact: Comment (poor) Hallucinations: Auditory (though denying he appears to be responding to internal stimuli) Delusions: Yes Delusion Type: Paranoid Suicidal: Ideation (denies) Homicidal: Ideation (denies) Insight/Judgement Very poor Vitals/IOs Vital Signs Date Time Temp Pulse Resp B/P Pulse Ox O2 Delivery O2 Flow Rate FiO2 12/23/16 06:15 98.7 65 18 150/70 97 12/19/16 22:44 Room Air Intake and Output 12/22/16 12/22/16 12/23/16 08:00 16:00 00:00 Intake Total 360 ml Balance 360 ml Assessment & Plan Problem List: (1) Schizophrenia ICD Code: F20.9 Assessment & Plan Estimated LOS: days patient remained psychotic delusional somewhat irritable, will calmer than yesterday Justification for Cont. Inpt. At this time patient will decompensate if placed in a lower level of care Discharge Planning To be determined Request HC Surrog/Guard Advoc?: Yes Problem Qualifiers (1) Schizophrenia: Qualified Code: F20.0 - Paranoid schizophrenia Jc Mcnamara MD Dec 23, 2016 13:18
[2016-12-23] MEDS: RIVAROXABAN 20 MG TAB PO SCH (18:00)
[2016-12-23] MEDS: AMANTADINE HCL 100 MG CAP PO SCH (20:37)
[2016-12-23] MEDS: diphenhydrAMINE HCL 50 MG CAP PO PRN (20:38)
[2016-12-23] MEDS: REMOVE OLD NICOTINE PATCH T-DERMAL SCH (20:41)
[2016-12-23 20:58] VITALS: BP 165/80; PULSE 84; RESP 16; TEMP 98; O2SAT 99
[2016-12-24 06:01] VITALS: BP 174/81; PULSE 77; RESP 18; TEMP 97.6; O2SAT 97
[2016-12-24] MEDS: PROPRANOLOL HCL 20 MG TAB PO SCH ×2 (08:55→21:09)
[2016-12-24] MEDS: NICOTINE 21 MG/24 HR PATCH T-DERMAL SCH (08:55)
[2016-12-24] MEDS: LISINOPRIL 10 MG TAB PO SCH (08:55)
[2016-12-24] MEDS: ZIPRASIDONE HCL 80 MG CAP PO SCH ×2 (08:55→21:09)
[2016-12-24] MEDS: POTASSIUM CHLORIDE 10 MEQ CONTROLLED RELEASE TAB PO SCH (08:55)
[2016-12-24] MEDS: ZIPRASIDONE MESYLATE 20 MG VIAL IM SCH ×2 (08:56→21:00)
--- NOTE | 2016-12-24 13:07 | HHI.PR ---
Subjective Remarks Cross covering [facility] Dr. Mary Follow-up hypertension, history of PE and patient noncompliant with medications. Patient seen and outside exercise area. Patient appears to be in no acute distress appears to be delusional. Continues to refuse antihypertensives and anticoagulation medications. Patient educated and continues to refuse. Patient offers no medical complaints. Denies shortness of breath chest pain nausea vomiting diarrhea constipation fevers or chills. Objective Vitals Vital Signs Date Time Temp Pulse Resp B/P Pulse Ox O2 Delivery O2 Flow Rate FiO2 12/24/16 06:01 97.6 77 18 174/81 97 12/23/16 20:58 98.0 84 16 165/80 99 12/23/16 20:02 Result Diagram: 12/22/16 0720 Objective Remarks GENERAL: This is an obese, well-developed patient, in no apparent distress. CARDIOVASCULAR: Regular rate and rhythm without murmurs, gallops, or rubs. RESPIRATORY: Clear to auscultation. Breath sounds equal bilaterally. No wheezes , rales, or rhonchi. GASTROINTESTINAL: Abdomen soft, non-tender, nondistended. Normal active bowel sounds MUSCULOSKELETAL: Trace to 1+ edema bilateral lower extremities NEURO: No focal deficits appreciated. Patient remains confused A/P Assessment and Plan Schizophrenia- management per psychiatric team Hypertension- recommend continuing Norvasc 10 mg as well as lisinopril 10 mg- discussed the importance with patient he continues to refuse Pulmonary embolism history- continue Xarelto daily- discussed the importance with patient who continues to refuse Hyponatremia- recheck BMP in in a.m. DVT prophylaxis patient is ambulatory and low risk Discussed with patient as well as nursing staff Written by Carol Ann Porter, acting as scribe for Dr. Major on 12/24/16 at 13:04. All or portions of this note were transcribed by scribe [Carol Ann Porter]. I, Dr. Caroline Major personally performed the history, physical exam, and medical decision making; and confirmed the accuracy of the information in the transcribed note. Authenticated by Dr. Carloine Major on 12/24/16 at 1305. Carol Ann Porter Dec 24, 2016 13:06 Caroline Major MD Dec 25, 2016 00:50
--- NOTE | 2016-12-24 15:46 | HHI.PYPN ---
Subjective Remarks Patient was seen and case discussed with nursing. Patient is irritable, angry and threatening. He is guarded and suspicions occasionally refusing medications. Grossly disorganized and paranoid. Denies hallucinations. The second dose of Geodon is given at night with a snack which could not be enough for absorption Objective Alert: Yes [place]: Person, Place Mood: Angry, Oppositional Affect: Labile, Blunted Memory Intact: Comment (poor) Hallucinations: Auditory (though denying he appears to be responding to internal stimuli) Delusions: Yes Delusion Type: Paranoid (paranoid today) Suicidal: Ideation (denies) Homicidal: Ideation (denies) Insight/Judgement Poor Vitals/IOs Vital Signs Date Time Temp Pulse Resp B/P Pulse Ox O2 Delivery O2 Flow Rate FiO2 12/24/16 06:01 97.6 77 18 174/81 97 Assessment & Plan Problem List: (1) Schizophrenia ICD Code: F20.9 Assessment & Plan Blood pressure was elevated and patient continues to be followed by the medical team. Nursing was reminded to give clonidine as needed if above blood pressure parameters. Geodon will now be given with dinner instead of snack Justification for Cont. Inpt. Patient will decompensate in a less restrictive setting Request HC Surrog/Guard Advoc?: Yes Problem Qualifiers (1) Schizophrenia: Qualified Code: F20.0 - Paranoid schizophrenia Agustin Mckeon DO Dec 24, 2016 15:46
[2016-12-24 17:45] VITALS: BP 149/70; PULSE 75; RESP 19; TEMP 98.4; O2SAT 97
[2016-12-24] MEDS: RIVAROXABAN 20 MG TAB PO SCH (18:18)
[2016-12-24] MEDS: REMOVE OLD NICOTINE PATCH T-DERMAL SCH (21:00)
[2016-12-24] MEDS: AMANTADINE HCL 100 MG CAP PO SCH (21:08)
[2016-12-25 06:29] VITALS: BP 145/72; PULSE 77; RESP 18; TEMP 97.7; O2SAT 97
[2016-12-25 08:20] LABS: BICARBONATE 27.1 MEQ/L (21.0-32.0)
[2016-12-25] MEDS: PROPRANOLOL HCL 20 MG TAB PO SCH ×2 (08:24→22:21)
[2016-12-25] MEDS: POTASSIUM CHLORIDE 10 MEQ CONTROLLED RELEASE TAB PO SCH (08:24)
[2016-12-25] MEDS: LISINOPRIL 10 MG TAB PO SCH (08:25)
[2016-12-25] MEDS: ZIPRASIDONE HCL 80 MG CAP PO SCH ×2 (08:25→22:20)
[2016-12-25] MEDS: ZIPRASIDONE MESYLATE 20 MG VIAL IM SCH ×2 (08:38→21:00)
[2016-12-25] MEDS: NICOTINE 21 MG/24 HR PATCH T-DERMAL SCH (08:57)
--- NOTE | 2016-12-25 12:49 | HHI.PYPN ---
Subjective Remarks Patient was seen and case discussed with nursing. Patient is less irritable and threatening compared to yesterday. He remains acutely psychotic with various delusions. His religiously preoccupied concerned about demons and devils. He also believes that he has 4 children when nursing confirmed he's not and has no children. Affect remains angry. Compliant with medications Objective Alert: Yes [place]: Person, Place Mood: Angry, Oppositional Affect: Labile Memory Intact: Comment (poor) Hallucinations: Auditory (though denying he appears to be responding to internal stimuli) Delusions: Yes Delusion Type: Paranoid (demons, that he has multiple children) Suicidal: Ideation (denies) Homicidal: Ideation (denies) Insight/Judgement Limited Labs Test 12/25/16 06:57 Sodium Level 132 MEQ/L Potassium Level 5.0 MEQ/L Chloride Level 96 MEQ/L Carbon Dioxide Level 27.1 MEQ/L Anion Gap 9 MEQ/L Blood Urea Nitrogen 11 MG/DL Creatinine 0.95 MG/DL Estimat Glomerular Filtration 81 ML/MIN Rate Random Glucose 89 MG/DL Calcium Level 9.2 MG/DL Vitals/IOs Vital Signs Date Time Temp Pulse Resp B/P Pulse Ox O2 Delivery O2 Flow Rate FiO2 12/25/16 06:29 97.7 77 18 145/72 97 Assessment & Plan Problem List: (1) Schizophrenia ICD Code: F20.9 Assessment & Plan Continue current treatment plan Justification for Cont. Inpt. Patient will decompensate in a less restrictive setting Request HC Surrog/Guard Advoc?: Yes Problem Qualifiers (1) Schizophrenia: Qualified Code: F20.0 - Paranoid schizophrenia Agustin Mckeon DO Dec 25, 2016 12:49
[2016-12-25] MEDS: RIVAROXABAN 20 MG TAB PO SCH (17:01)
[2016-12-25 18:36] VITALS: BP 136/66; PULSE 76; RESP 18; TEMP 98.3; O2SAT 99
[2016-12-25] MEDS: REMOVE OLD NICOTINE PATCH T-DERMAL SCH (21:00)
[2016-12-25] MEDS: AMANTADINE HCL 100 MG CAP PO SCH (22:20)
[2016-12-26 05:44] VITALS: BP 152/72; PULSE 77; RESP 20; TEMP 98.5; O2SAT 100
[2016-12-26] MEDS: NICOTINE 21 MG/24 HR PATCH T-DERMAL SCH (08:31)
[2016-12-26] MEDS: ZIPRASIDONE HCL 80 MG CAP PO SCH ×2 (09:00→20:32)
[2016-12-26] MEDS: PROPRANOLOL HCL 20 MG TAB PO SCH ×2 (09:00→20:34)
[2016-12-26] MEDS ORDERED: LISINOPRIL 20 MG TAB PO SCH (09:00)
[2016-12-26] MEDS: ZIPRASIDONE MESYLATE 20 MG VIAL IM SCH ×2 (09:00→21:00)
[2016-12-26] MEDS: LISINOPRIL 10 MG TAB PO SCH (09:00)
--- NOTE | 2016-12-26 15:20 | HHI.PYPN ---
Subjective Remarks Patient discussed with treatment team, chart reviewed, patient seen on unit. Patient continues intense somewhat labile and intrusive, though showing some increase compliance with medication. Speech regular still increased there is a mild paranoia grandiosity with him also. Will increase the Geodon to 80 mg a.m. 160 mg at bedtime Review of Systems Except as stated in HPI: all other systems reviewed are Neg Objective Alert: Yes [place]: Person, Place Mood: Angry, Oppositional Affect: Labile Memory Intact: Comment (poor) Hallucinations: Auditory (though denying he appears to be responding to internal stimuli) Delusions: Yes Delusion Type: Paranoid (demons, that he has multiple children) Suicidal: Ideation (denies) Homicidal: Ideation (denies) Insight/Judgement Very poor Vitals/IOs Vital Signs Date Time Temp Pulse Resp B/P Pulse Ox O2 Delivery O2 Flow Rate FiO2 12/26/16 05:44 98.5 77 20 152/72 100 Intake and Output 12/25/16 12/25/16 12/26/16 08:00 16:00 00:00 Intake Total 240 ml 360 ml Balance 240 ml 360 ml Assessment & Plan Problem List: (1) Schizophrenia ICD Code: F20.9 Assessment & Plan Patient continues somewhat psychotic intrusive and paranoid with the degree of grandiosity today see medication adjustments above Justification for Cont. Inpt. At this time patient will decompensate placed in a lower level of care Discharge Planning To be determined Request HC Surrog/Guard Advoc?: Yes Problem Qualifiers (1) Schizophrenia: Qualified Code: F20.0 - Paranoid schizophrenia Jc Mcnamara MD Dec 26, 2016 15:20
[2016-12-26 17:01] VITALS: BP 135/74; PULSE 75; RESP 18; TEMP 98.1; O2SAT 97
[2016-12-26] MEDS: RIVAROXABAN 20 MG TAB PO SCH (17:41)
[2016-12-26] MEDS: AMANTADINE HCL 100 MG CAP PO SCH (20:32)
[2016-12-26] MEDS: diphenhydrAMINE HCL 50 MG CAP PO PRN (20:32)
[2016-12-26] MEDS: REMOVE OLD NICOTINE PATCH T-DERMAL SCH (21:00)
[2016-12-27 06:40] VITALS: BP 137/72; PULSE 80; RESP 18; TEMP 97.7; O2SAT 98
[2016-12-27] MEDS: PROPRANOLOL HCL 20 MG TAB PO SCH ×2 (08:55→21:23)
[2016-12-27] MEDS: ZIPRASIDONE HCL 80 MG CAP PO SCH ×2 (08:56→21:23)
[2016-12-27] MEDS: LISINOPRIL 10 MG TAB PO SCH (08:56)
[2016-12-27] MEDS: ZIPRASIDONE MESYLATE 20 MG VIAL IM SCH ×2 (08:57→21:00)
[2016-12-27] MEDS: NICOTINE 21 MG/24 HR PATCH T-DERMAL SCH (08:59)
--- NOTE | 2016-12-27 14:21 | HHI.PYPN ---
Subjective Remarks Patient seen in day room, with floor staff, chart reviewed. Patient somewhat calmer today appears a little drowsy with increase Geodon he still showing some irritability and desire for discharge. Though the degree of paranoia has softened somewhat. There are still little insight into his disease. For now continue treatment Review of Systems Except as stated in HPI: all other systems reviewed are Neg Objective Alert: Yes [place]: Person, Place Mood: Angry (decreased), Oppositional (decrease slightly) Affect: Labile (decreased) Memory Intact: Comment (poor) Hallucinations: Auditory (though denying he appears to be responding to internal stimuli) Delusions: Yes Delusion Type: Paranoid (demons, that he has multiple children) Suicidal: Ideation (denies) Homicidal: Ideation (denies) Insight/Judgement Very poor Vitals/IOs Vital Signs Date Time Temp Pulse Resp B/P Pulse Ox O2 Delivery O2 Flow Rate FiO2 12/27/16 06:40 97.7 80 18 137/72 98 Assessment & Plan Problem List: (1) Schizophrenia ICD Code: F20.9 Assessment & Plan Estimated LOS: days patient continue psychotic and paranoid, though also continues compliant medication. For now continue treatment Justification for Cont. Inpt. At this time patient will decompensate if placed in the lower level of care Discharge Planning To be determined Request HC Surrog/Guard Advoc?: Yes Problem Qualifiers (1) Schizophrenia: Qualified Code: F20.0 - Paranoid schizophrenia Jc Mcnamara MD Dec 27, 2016 14:21
[2016-12-27] MEDS: RIVAROXABAN 20 MG TAB PO SCH (17:05)
[2016-12-27] MEDS: diphenhydrAMINE HCL 50 MG CAP PO PRN ×2 (17:05→21:23)
[2016-12-27 17:58] VITALS: BP 140/80; PULSE 69; RESP 18; TEMP 97.8; O2SAT 98
[2016-12-27] MEDS: REMOVE OLD NICOTINE PATCH T-DERMAL SCH (21:00)
[2016-12-27] MEDS: AMANTADINE HCL 100 MG CAP PO SCH (21:24)
[2016-12-27] MEDS: hydrOXYzine HCL 50 MG TAB PO PRN (21:24)
[2016-12-28 06:01] VITALS: BP 122/62; PULSE 74; RESP 18; TEMP 99.1; O2SAT 96
[2016-12-28] MEDS: PROPRANOLOL HCL 20 MG TAB PO SCH ×2 (09:00→20:50)
[2016-12-28] MEDS: ZIPRASIDONE MESYLATE 20 MG VIAL IM SCH ×2 (09:00→21:00)
[2016-12-28] MEDS: NICOTINE 21 MG/24 HR PATCH T-DERMAL SCH (09:00)
[2016-12-28] MEDS: ZIPRASIDONE HCL 80 MG CAP PO SCH ×2 (09:08→20:50)
[2016-12-28] MEDS: LISINOPRIL 10 MG TAB PO SCH (09:08)
--- NOTE | 2016-12-28 10:51 | HHI.FPPN ---
Subjective Remarks c/o neck pain request biofreeze agitated yelling seen with [employer] Objective Vitals Vital Signs Date Time Temp Pulse Resp B/P Pulse Ox O2 Delivery O2 Flow Rate FiO2 12/28/16 06:01 99.1 74 18 122/62 96 12/27/16 17:58 97.8 69 18 140/80 98 Result Diagram: 12/25/16 0657 Objective Remarks GENERAL: refuses most of exam, becomes agitated and threatening SKIN: Warm and dry. HEAD: Atraumatic. Normocephalic. EYES: No scleral icterus. No injection or drainage. NECK: Trachea midline. No JVD. MUSCULOSKELETAL: Extremities without clubbing, cyanosis, or edema. No obvious deformities. TTP bilat C3-5 paraspinal mm NEUROLOGICAL: Awake and alert. No obvious cranial nerve deficits. Motor grossly within normal limits. PSYCHIATRIC: delirious Medications and IVs Current Medications Medications (Trade) Dose Ordered Sig/Josephine Route Start Time Stop Time Status Last Admin (Atarax) 50 mg Q6H PRN PO 12/20/16 02:00 12/27/16 21:24 (Benadryl) 50 mg Q6H PRN PO 12/20/16 02:00 12/27/16 21:23 (Tylenol) 650 mg Q4H PRN PO 12/20/16 02:00 (Milk Of Magnesia Liq) 30 ml DAILY PRN PO 12/20/16 02:00 (Mag-Al Plus Susp Liq) 30 ml Q6H PRN PO 12/20/16 02:00 (Habitrol 21 Mg Patch.24 Hr) 1 patch DAILY T-DERMAL 12/20/16 09:00 Miscellaneous Information 1 HS T-DERMAL 12/20/16 21:00 (Xarelto) 20 mg DAILY@18 PO 12/20/16 18:00 12/27/16 17:05 (Inderal) 20 mg BID PO 12/20/16 09:00 12/27/16 21:23 (Symmetrel) 100 mg HS PO 12/20/16 21:00 12/27/16 21:24 (Norvasc) 10 mg DAILY PO 12/20/16 09:00 12/28/16 09:08 (Catapres) 0.1 mg Q6H PRN PO 12/20/16 10:45 (Geodon Inj) 10 mg BID IM 12/22/16 21:00 (Prinivil) 10 mg DAILY PO 12/26/16 09:00 12/28/16 09:08 (Geodon) 80 mg DAILY PO 12/27/16 09:00 12/28/16 09:08 (Geodon) 160 mg HS PO 12/26/16 21:00 12/27/16 21:23 A/P Assessment and Plan 1. Altered mental status. 2. Schizophrenia, decompensated. 3. Pulmonary embolism. 4. Hyponatremia . 5. Chronic edema. 6. Hyperlipidemia. 7. Hypertension. 8. Cervicalgia without radiculopathy PLAN- menthol to cerv spine x four days Norvasc 10 mg daily for blood pressure, however, may need to go down and change this as he has had quite a bit of edema; Potassium 10 mEq daily. Propranolol 20 mg b.i.d. Xarelto 20 mg daily. psych meds per Psychiatry. clonidine p.r.n. for systolic greater than 170. Added lisinopril 10 mg daily. Monitor hyponatremia, however, he has had recurrent hyponatremia due to antipsychotics. Joey Mary MD Dec 28, 2016 10:51
[2016-12-28] MEDS: MENTHOL/METHYL SALICYLATE OINT 30 GM TUBE TOPICAL SCH ×2 (13:00→20:50)
--- NOTE | 2016-12-28 15:34 | HHI.PYPN ---
Subjective Remarks Patient seen in [place] with her staff. Patient remains quite aggressive hospital paranoid intrusive and intimidating. He continues to deny that he has mental illness that this is all conspiracy against him. He wants to be discharged as soon as possible. My opinion that this patient is a high risk for violent acting out. We will increase his Geodon to 160 mg twice a day. Patient is scheduled for [place] [facility] tomorrow will request a guardian advocate Review of Systems Except as stated in HPI: all other systems reviewed are Neg Objective Alert: Yes [place]: Person, Place Mood: Agitated, Angry (decreased), Oppositional (decrease slightly) Affect: Labile (decreased) Memory Intact: Comment (poor) Hallucinations: Auditory (though denying he appears to be responding to internal stimuli) Delusions: Yes Delusion Type: Paranoid (demons, that he has multiple children) Suicidal: Ideation (denies) Homicidal: Ideation (denies) Insight/Judgement Very poor Vitals/IOs Vital Signs Date Time Temp Pulse Resp B/P Pulse Ox O2 Delivery O2 Flow Rate FiO2 12/28/16 06:01 99.1 74 18 122/62 96 Assessment & Plan Problem List: (1) Schizophrenia ICD Code: F20.9 Assessment & Plan Estimated LOS: days at this time patient remains quite psychotic paranoid aggressive high risk of aggressive behavior. See medication adjustment above Justification for Cont. Inpt. At this time patient will decompensate if placed in a lower level of care Discharge Planning To be determined Request HC Surrog/Guard Advoc?: Yes Problem Qualifiers (1) Schizophrenia: Qualified Code: F20.0 - Paranoid schizophrenia Jc Mcnamara MD Dec 28, 2016 15:34
[2016-12-28 17:18] VITALS: BP 149/67; PULSE 85; RESP 20; TEMP 98; O2SAT 97
[2016-12-28] MEDS: RIVAROXABAN 20 MG TAB PO SCH (18:00)
[2016-12-28] MEDS: AMANTADINE HCL 100 MG CAP PO SCH (20:49)
[2016-12-28] MEDS: hydrOXYzine HCL 50 MG TAB PO PRN (20:52)
[2016-12-28] MEDS: REMOVE OLD NICOTINE PATCH T-DERMAL SCH (21:00)
[2016-12-29 05:30] VITALS: BP 122/60; PULSE 69; RESP 18; TEMP 97.5; O2SAT 96
[2016-12-29] MEDS: PROPRANOLOL HCL 20 MG TAB PO SCH ×2 (09:00→20:29)
[2016-12-29] MEDS: NICOTINE 21 MG/24 HR PATCH T-DERMAL SCH (09:00)
[2016-12-29] MEDS: ZIPRASIDONE MESYLATE 20 MG VIAL IM SCH ×2 (09:00→20:31)
[2016-12-29] MEDS: MENTHOL/METHYL SALICYLATE OINT 30 GM TUBE TOPICAL SCH ×2 (09:00→20:29)
[2016-12-29] MEDS: hydrOXYzine HCL 50 MG TAB PO PRN (09:08)
[2016-12-29] MEDS: ZIPRASIDONE HCL 80 MG CAP PO SCH ×2 (09:08→20:29)
[2016-12-29] MEDS: LISINOPRIL 10 MG TAB PO SCH (09:08)
--- NOTE | 2016-12-29 13:22 | HHI.PYPN ---
Subjective Remarks Patient seen in [place], patient retained by [employer], brother to be guardian advocate. Patient continues to show denial of illness or need for medication continues intense paranoid somewhat threatening and volatile. Patient is compliant medications. For now continue treatment if patient does not respond in the next one at today's to the increased Geodon will consider switching to another antipsychotic perhaps one with a long acting decanoate Review of Systems Except as stated in HPI: all other systems reviewed are Neg Objective Alert: Yes [place]: Person, Place Mood: Agitated, Angry (decreased), Oppositional (decrease slightly) Affect: Labile (decreased) Memory Intact: Comment (poor) Hallucinations: Auditory (though denying he appears to be responding to internal stimuli) Delusions: Yes Delusion Type: Paranoid (demons, that he has multiple children) Suicidal: Ideation (denies) Homicidal: Ideation (denies) Insight/Judgement Very poor Vitals/IOs Vital Signs Date Time Temp Pulse Resp B/P Pulse Ox O2 Delivery O2 Flow Rate FiO2 12/29/16 05:30 97.5 69 18 122/60 96 Intake and Output 12/28/16 12/28/16 12/29/16 08:00 16:00 00:00 Intake Total 360 ml Balance 360 ml Assessment & Plan Problem List: (1) Schizophrenia ICD Code: F20.9 Assessment & Plan Estimated LOS: days patient seen in [place] retained, brother to be guardian advocate. Continues psychotic delusional with no insight with attempts at intimidation Justification for Cont. Inpt. At this time patient will decompensate if placed in a lower level of care Discharge Planning To be determined Request HC Surrog/Guard Advoc?: Yes Problem Qualifiers (1) Schizophrenia: Qualified Code: F20.0 - Paranoid schizophrenia Jc Mcnamara MD Dec 29, 2016 13:22
[2016-12-29] MEDS: RIVAROXABAN 20 MG TAB PO SCH (17:07)
[2016-12-29] MEDS: diphenhydrAMINE HCL 50 MG CAP PO PRN (17:07)
[2016-12-29] MEDS: REMOVE OLD NICOTINE PATCH T-DERMAL SCH (20:32)
[2016-12-29] MEDS: AMANTADINE HCL 100 MG CAP PO SCH ×2 (21:00→21:33)
[2016-12-29 21:56] VITALS: BP 164/74; PULSE 99; RESP 18; TEMP 97.4; O2SAT 99
[2016-12-30] MEDS: diphenhydrAMINE HCL 50 MG CAP PO PRN ×2 (03:21→20:40)
[2016-12-30 06:28] VITALS: BP 129/72; PULSE 67; RESP 18; TEMP 97.4; O2SAT 98
[2016-12-30] MEDS: NICOTINE 21 MG/24 HR PATCH T-DERMAL SCH (09:00)
[2016-12-30] MEDS: MENTHOL/METHYL SALICYLATE OINT 30 GM TUBE TOPICAL SCH ×3 (09:00→21:00)
[2016-12-30] MEDS: ZIPRASIDONE MESYLATE 20 MG VIAL IM SCH ×2 (09:00→20:42)
[2016-12-30] MEDS: ZIPRASIDONE HCL 80 MG CAP PO SCH ×2 (09:42→20:41)
[2016-12-30] MEDS: PROPRANOLOL HCL 20 MG TAB PO SCH ×2 (09:42→20:41)
[2016-12-30] MEDS: LISINOPRIL 10 MG TAB PO SCH (09:42)
--- NOTE | 2016-12-30 11:44 | HHI.PYPN ---
Subjective Remarks Patient seen in activities room with nurse Naa, patient continues quite psychotic delusional intense irritable and somewhat intrusive. While he is compliant with medications and is done reluctantly. He still denies mental illness with the need for medication. He did acknowledge spending over 5 years in [place] a number of years ago. For now continue treatment Review of Systems Except as stated in HPI: all other systems reviewed are Neg Objective Alert: Yes [place]: Person, Place Mood: Agitated, Angry (decreased), Oppositional (decrease slightly) Affect: Labile (decreased) Memory Intact: Comment (poor) Hallucinations: Auditory (though denying he appears to be responding to internal stimuli) Delusions: Yes Delusion Type: Paranoid (demons, that he has multiple children) Suicidal: Ideation (denies) Homicidal: Ideation (denies) Insight/Judgement Very poor Vitals/IOs Vital Signs Date Time Temp Pulse Resp B/P Pulse Ox O2 Delivery O2 Flow Rate FiO2 12/30/16 06:28 97.4 67 18 129/72 98 Assessment & Plan Problem List: (1) Schizophrenia ICD Code: F20.9 Assessment & Plan Estimated LOS: days patient continue psychotic, paranoid, irritable and vigilant. Reluctantly compliant medication. Justification for Cont. Inpt. At this time patient will decompensate if placed on the lower level of care Discharge Planning To be determined Request HC Surrog/Guard Advoc?: Yes Problem Qualifiers (1) Schizophrenia: Qualified Code: F20.0 - Paranoid schizophrenia Jc Mcnamara MD Dec 30, 2016 11:44
[2016-12-30] MEDS: RIVAROXABAN 20 MG TAB PO SCH (18:36)
[2016-12-30 19:29] VITALS: BP 162/70; PULSE 72; RESP 18; TEMP 97.8; O2SAT 99
[2016-12-30] MEDS: AMANTADINE HCL 100 MG CAP PO SCH (20:41)
[2016-12-30] MEDS: REMOVE OLD NICOTINE PATCH T-DERMAL SCH (20:42)
[2016-12-31 06:36] VITALS: BP 154/89; PULSE 66; RESP 20; TEMP 98.9; O2SAT 100
[2016-12-31] MEDS: NICOTINE 21 MG/24 HR PATCH T-DERMAL SCH (09:00)
[2016-12-31] MEDS: MENTHOL/METHYL SALICYLATE OINT 30 GM TUBE TOPICAL SCH ×2 (09:00→21:00)
[2016-12-31] MEDS: ZIPRASIDONE MESYLATE 20 MG VIAL IM SCH ×2 (09:00→20:43)
[2016-12-31] MEDS: PROPRANOLOL HCL 20 MG TAB PO SCH ×2 (09:17→20:44)
[2016-12-31] MEDS: LISINOPRIL 10 MG TAB PO SCH (09:17)
[2016-12-31] MEDS: ZIPRASIDONE HCL 80 MG CAP PO SCH ×2 (09:18→21:00)
[2016-12-31] MEDS: RIVAROXABAN 20 MG TAB PO SCH (18:00)
--- NOTE | 2016-12-31 19:31 | HHI.PYPN ---
Subjective Remarks Pt seen and discussed with staff. He reports that he has an imbalance of vitamins and minerals and that during interview his pancreas started to spasm. He is bizarre and delusional. He is irritable but has not had any behavioral problems. Insight into illness is poor. Review of Systems Psychiatric: COMPLAINS OF: Delusions Objective Alert: Yes [place]: Person, Place Mood: Other (irritable) Affect: Restricted Memory Intact: Comment (poor) Hallucinations: Auditory (though denying he appears to be responding to internal stimuli) Delusions: Yes Delusion Type: Paranoid (demons, that he has multiple children) Suicidal: Ideation (denies) Homicidal: Ideation (denies) Insight/Judgement poor Vitals/IOs Vital Signs Date Time Temp Pulse Resp B/P Pulse Ox O2 Delivery O2 Flow Rate FiO2 12/31/16 06:36 98.9 66 20 154/89 100 Assessment & Plan Problem List: (1) Schizophrenia ICD Code: F20.9 Assessment & Plan Continue current tx plan. Estimated LOS: days Justification for Cont. Inpt. impairments in reality construction Request HC Surrog/Guard Advoc?: Yes Problem Qualifiers (1) Schizophrenia: Qualified Code: F20.0 - Paranoid schizophrenia Vandana Macdonald MD Dec 31, 2016 19:30
[2016-12-31] MEDS: AMANTADINE HCL 100 MG CAP PO SCH (20:44)
[2016-12-31 21:38] VITALS: BP 140/86; PULSE 82; RESP 18; TEMP 98; O2SAT 96
[2017-01-01] MEDS: hydrOXYzine HCL 50 MG TAB PO PRN ×2 (03:23→08:59)
[2017-01-01 06:00] VITALS: BP 128/60; PULSE 75; RESP 18; TEMP 98.4; O2SAT 97
[2017-01-01] MEDS: LISINOPRIL 10 MG TAB PO SCH (08:59)
[2017-01-01] MEDS: ZIPRASIDONE HCL 80 MG CAP PO SCH ×2 (08:59→21:11)
[2017-01-01] MEDS: ZIPRASIDONE MESYLATE 20 MG VIAL IM SCH ×2 (08:59→21:00)
[2017-01-01] MEDS: MENTHOL/METHYL SALICYLATE OINT 30 GM TUBE TOPICAL SCH (09:00)
[2017-01-01] MEDS: PROPRANOLOL HCL 20 MG TAB PO SCH ×2 (09:05→21:11)
--- NOTE | 2017-01-01 10:28 | HHI.PR ---
Objective Vitals Vital Signs Date Time Temp Pulse Resp B/P Pulse Ox O2 Delivery O2 Flow Rate FiO2 01/01/17 06:00 98.4 75 18 128/60 97 12/31/16 21:38 98.0 82 18 140/86 96 Tien Louis MD Jan 01, 2017 10:28
--- NOTE | 2017-01-01 13:39 | HHI.PYPN ---
Subjective Remarks Pt seen and discussed with staff. He reports that invisible entities were "sucking my alfredo and raping me". RN reports that pt 's brother states that this is a chronic delusion. He was moved to 2700 unit to a private room yesterday. He remains paranoid and loose. No SI/HI. Objective Alert: Yes [place]: Person, Place Mood: Other (irritable) Affect: Restricted Memory Intact: Comment (poor) Hallucinations: Auditory (responding to internal stimul) Delusions: Yes Delusion Type: Paranoid (demons, that he has multiple children) Suicidal: Ideation (denies) Homicidal: Ideation (denies) Insight/Judgement poor Vitals/IOs Vital Signs Date Time Temp Pulse Resp B/P Pulse Ox O2 Delivery O2 Flow Rate FiO2 01/01/17 06:00 98.4 75 18 128/60 97 Assessment & Plan Problem List: (1) Schizophrenia ICD Code: F20.9 Assessment & Plan Continue current tx plan. Estimated LOS: days Justification for Cont. Inpt. impairments in reality testing. Request HC Surrog/Guard Advoc?: Yes Problem Qualifiers (1) Schizophrenia: Qualified Code: F20.0 - Paranoid schizophrenia Vandana Macdonald MD Jan 01, 2017 13:39
--- NOTE | 2017-01-01 14:26 | HHI.PR ---
Subjective Remarks Follow-up pulmonary embolism. Denies chest pain, shortness of breath and hemoptysis. He was transferred to 2700 secondary to behavioral issues. He continues to be agitated swearing. Discussed with RN Objective Vitals Vital Signs Date Time Temp Pulse Resp B/P Pulse Ox O2 Delivery O2 Flow Rate FiO2 01/01/17 06:00 98.4 75 18 128/60 97 12/31/16 21:38 98.0 82 18 140/86 96 Objective Remarks GENERAL: This is a well-nourished, well-developed patient, in no apparent distress. CARDIOVASCULAR: Regular rate and rhythm without murmurs, gallops, or rubs. RESPIRATORY: Clear to auscultation. Breath sounds equal bilaterally. No wheezes , rales, or rhonchi. GASTROINTESTINAL: Abdomen soft, non-tender, nondistended. Normal active bowel sounds MUSCULOSKELETAL: Extremities without clubbing, cyanosis but with bilateral lower extremity pitting edema. NEURO: Agitated. Moves all ext x4 A/P Assessment and Plan Schizophrenia, decompensated. Further management per psychiatry Pulmonary embolism. Stable continue Xarelto Chronic recurrent hyponatremia likely secondary to antipsychotics. Monitor Chronic edema. Consider diuretics or discontinue Norvasc Hypertension. Continue Norvasc and Inderal DVT prophylaxis on Xarelto Tien Louis MD Jan 01, 2017 14:26
[2017-01-01] MEDS: RIVAROXABAN 20 MG TAB PO SCH (18:00)
[2017-01-01] MEDS: AMANTADINE HCL 100 MG CAP PO SCH (21:11)
[2017-01-02 05:59] VITALS: BP 190/85; PULSE 79; RESP 20; TEMP 98.2; O2SAT 95
[2017-01-02 08:30] VITALS: BP 160/76; PULSE 80
[2017-01-02] MEDS: LISINOPRIL 10 MG TAB PO SCH (08:36)
[2017-01-02] MEDS: ZIPRASIDONE HCL 80 MG CAP PO SCH (08:36)
[2017-01-02] MEDS: ZIPRASIDONE MESYLATE 20 MG VIAL IM SCH (08:49)
[2017-01-02] MEDS: PROPRANOLOL HCL 20 MG TAB PO SCH (09:00)
--- NOTE | 2017-01-02 10:45 | HHI.PYPN ---
Subjective Remarks I am assuming care of the patient. Patient seen and examined. Chart reviewed. Case discussed with nursing staff who notes the patient is quite tremulous and on a high-dose of Geodon. On my examination today, the patient insists that he has to be discharged to this because his is in [place]. Remains fairly irritable. Denies SI or HI. Denies AVH but appears internally stimulated. He doesn't think he has a mental illness, calls it "a bunch of hogwash." Tremulousness but no other side effects from medications. Review of Systems ROS Limitations: Psychotic, Poor Historian Except as stated in HPI: all other systems reviewed are Neg Objective Alert: Yes [place]: Person, Place Mood: Other (remains fairly irritable) Affect: Restricted (generally dysphoric) Memory Intact: Comment (not formally assessed) Hallucinations: Other (internally preoccupied) Delusions: Yes Delusion Type: Paranoid ( is ) Suicidal: Ideation (denies) Homicidal: Ideation (denies) Insight/Judgement Poor Remarks Patient is quite tremulous both at rest and with intention. Some hypomimia noted. No dystonias or dyskinesias noted. Thought process generally linear within delusional system. Grooming and hygiene fair. Labs Labs reviewed. Mild hyponatremia, and I do see from the hospitalist note that this is posited to be due to antipsychotic medications. Vitals/IOs Vital Signs Date Time Temp Pulse Resp B/P Pulse Ox O2 Delivery O2 Flow Rate FiO2 01/02/17 08:30 80 160/76 01/02/17 05:59 98.2 20 95 Assessment & Plan Problem List: (1) Schizophrenia ICD Code: F20.9 Assessment & Plan Quite tremulous with a very robust dose of Geodon. Remains psychotic. Probably best at this point to try a different agent. Discussed with patient. We settle on Seroquel. Patient prefers an abrupt change instead of a cross taper. Discontinue Geodon and start Seroquel 200 mg at bedtime with plans to titrate to effect. Continue to monitor on the inpatient unit. Appreciate hospitalist clinical program consultant input. Continue other medications and care as ordered. Justification for Cont. Inpt. Impairment in reality construction. Impairment in social functioning. Medication changes in process. High risk for decompensation in a less restrictive environment. Discharge Planning I have left a voicemail for the counselor, 2600 unit to see what the dispo plan is for this patient. Request HC Surrog/Guard Advoc?: Yes Problem Qualifiers (1) Schizophrenia: Qualified Code: F20.0 - Paranoid schizophrenia Marques Fregoso MD Jan 02, 2017 10:45
[2017-01-02] MEDS ORDERED: PILL SPLITTER OTHER PRN (15:30)
[2017-01-02] MEDS: RIVAROXABAN 20 MG TAB PO SCH (17:26)
[2017-01-02 18:00] VITALS: BP 162/72; PULSE 90; RESP 20; TEMP 98.2; O2SAT 95
[2017-01-02] MEDS: AMANTADINE HCL 100 MG CAP PO SCH (20:18)
[2017-01-02] MEDS: PROPRANOLOL HCL 40 MG TAB PO SCH (21:00)
[2017-01-02] MEDS ORDERED: QUEtiapine FUMARATE 200 MG TAB PO SCH (21:00)
[2017-01-03 06:10] VITALS: BP 164/73; PULSE 81; RESP 18; TEMP 98.5; O2SAT 98
[2017-01-03] MEDS: LISINOPRIL 10 MG TAB PO SCH (09:12)
[2017-01-03] MEDS: hydrOXYzine HCL 50 MG TAB PO PRN (09:12)
[2017-01-03] MEDS: PROPRANOLOL HCL 40 MG TAB PO SCH ×2 (09:13→20:34)
--- NOTE | 2017-01-03 12:14 | HHI.PYPN ---
Subjective Remarks Patient seen and examined with nurse. Chart reviewed. Case discussed in treatment team with nurse, counselor and occupational therapist. Per nursing staff, patient has poor insight and is sexually inappropriate at times, walking around with his pants at his ankles. On my examination today, patient remains delusional noting "I need some penicillin. I've got AIDS starting up. AIDS means you can't have sex for 3 weeks." He knows he has AIDS because of what looks likes an isolated, inflamed hair follicle on his abdomen. He suspects that he has contracted AIDS from "alfredo sucking on the other unit, but I bit his alfredo off." Denies side effects from medications. Review of Systems Except as stated in HPI: all other systems reviewed are Neg Objective Alert: Yes [place]: Person, Place Mood: Other (irritable) Affect: Restricted Memory Intact: Comment (Not assessed) Hallucinations: Other (Remains int stim) Delusions: Yes Delusion Type: Paranoid (re: AIDS) Suicidal: Ideation (No SI) Homicidal: Ideation (No HI) Insight/Judgement Poor Remarks No motor abnormalities noted. Thought process perseverative on having AIDS. Speech rambling. Labs Labs reviewed. No new labs. Vitals/IOs Vital Signs Date Time Temp Pulse Resp B/P Pulse Ox O2 Delivery O2 Flow Rate FiO2 01/03/17 06:10 98.5 81 18 164/73 98 Assessment & Plan Problem List: (1) Schizophrenia ICD Code: F20.9 Assessment & Plan Titrate Seroquel to 300mg qHS to target psychosis. Keeping dose entirely at HS per patient preference. Sexual prec. Continue to monitor on high acuity unit. Continue other medications and care as ordered. Justification for Cont. Inpt. Impairment in reality construction. Impairment in social functioning. Medication changes in process. Risk for decompensation. Discharge Planning Placement, pending psychiatric stabilization. Request HC Surrog/Guard Advoc?: Yes Problem Qualifiers (1) Schizophrenia: Qualified Code: F20.0 - Paranoid schizophrenia Marques Fregoso MD Jan 03, 2017 12:14
[2017-01-03 17:42] VITALS: BP 127/65; PULSE 73; RESP 18; TEMP 98.1; O2SAT 98
[2017-01-03] MEDS: RIVAROXABAN 20 MG TAB PO SCH (18:26)
[2017-01-03] MEDS: diphenhydrAMINE HCL 50 MG CAP PO PRN (20:34)
[2017-01-03] MEDS: AMANTADINE HCL 100 MG CAP PO SCH (20:34)
[2017-01-03] MEDS ORDERED: QUEtiapine FUMARATE 300 MG TAB PO SCH (21:00)
[2017-01-04 06:14] VITALS: BP 104/56; PULSE 71; RESP 18; TEMP 97.3; O2SAT 94
[2017-01-04] MEDS: LISINOPRIL 10 MG TAB PO SCH (08:52)
[2017-01-04] MEDS: PROPRANOLOL HCL 40 MG TAB PO SCH ×2 (08:53→20:34)
[2017-01-04] MEDS: hydrOXYzine HCL 50 MG TAB PO PRN (08:54)
--- NOTE | 2017-01-04 11:32 | HHI.PYPN ---
Subjective Remarks Patient seen and examined with nurse. Chart reviewed. Case discussed with nursing staff. Patient remains psychotic and delusional. On my examination today, the patient continues to insist that he has AIDS and needs penicillin for this. He says "It's a shame having AIDS." He talks about himself in the 3rd person for a while. He wants his Seroquel titrated to 400mg BID. Some neologisms noted. I am "a half-sissian." Denies side effects from meds. Review of Systems ROS Limitations: Psychotic, Poor Historian Except as stated in HPI: all other systems reviewed are Neg Objective Alert: Yes [place]: Person, Place Mood: Other (remains somewhat irritable) Affect: Restricted Memory Intact: Comment (Not assessed) Hallucinations: Other (Internally stimulated) Delusions: Yes Delusion Type: Paranoid (re: AIDS, ongoing) Suicidal: Ideation (No SI) Homicidal: Ideation (No HI) Insight/Judgement Poor Remarks Perhaps some mild hand tremor. No other motor abnormalities noted. Speech rambling at times. Labs Labs reviewed. Vitals/IOs Vital Signs Date Time Temp Pulse Resp B/P Pulse Ox O2 Delivery O2 Flow Rate FiO2 01/04/17 06:14 97.3 71 18 104/56 94 Assessment & Plan Problem List: (1) Schizophrenia ICD Code: F20.9 Assessment & Plan Titrate Seroquel to 400mg qHS to manage psychosis. Continue to monitor on the inpatient unit. Continue other medications and care as ordered. Justification for Cont. Inpt. Impairment in reality construction. Impairment in social functioning. Medication changes and process. High risk for decompensation pending psychiatric stabilization. Discharge Planning ?Return to facility once psychiatrically stable? I'll initiate a state hospital referral as a backup. Request HC Surrog/Guard Advoc?: Yes Problem Qualifiers (1) Schizophrenia: Qualified Code: F20.0 - Paranoid schizophrenia Marques Fregoso MD Jan 04, 2017 11:32
[2017-01-04 17:57] VITALS: BP 138/64; PULSE 80; RESP 18; TEMP 98; O2SAT 96
[2017-01-04] MEDS: RIVAROXABAN 20 MG TAB PO SCH (18:20)
[2017-01-04] MEDS: AMANTADINE HCL 100 MG CAP PO SCH (20:34)
[2017-01-04] MEDS: diphenhydrAMINE HCL 50 MG CAP PO PRN (20:34)
[2017-01-04] MEDS: QUEtiapine FUMARATE 200 MG TAB PO SCH (20:34)
[2017-01-05 05:39] VITALS: BP 133/61; PULSE 98; RESP 18; TEMP 97; O2SAT 99
[2017-01-05 05:44] VITALS: BP 110/62; PULSE 72; RESP 18; TEMP 97.2; O2SAT 98
[2017-01-05] MEDS: PROPRANOLOL HCL 40 MG TAB PO SCH ×2 (08:45→20:09)
[2017-01-05] MEDS: LISINOPRIL 10 MG TAB PO SCH (08:46)
--- NOTE | 2017-01-05 10:10 | HHI.PYPN ---
Subjective Remarks Patient seen and examined with counselor and nurse. Chart reviewed. Case discussed with nursing reports patient was angry this morning. On my examination today, the patient remains fixated on having AIDS. "AIDS isn't full -blown AIDS until you have open sores. I don't have full-blown AIDS because I never did it with a monkey or a man." Makes random comments during the interview, such as "suck my alfredo. [place], bottle. [place]." He is irritable and remains internally preoccupied. Denies side effects from Seroquel. Review of Systems ROS Limitations: Psychotic, Poor Historian Except as stated in HPI: all other systems reviewed are Neg Objective Alert: Yes [place]: Person, Place Mood: Other (somewhat irritable) Affect: Restricted Memory Intact: Comment (Not assessed) Hallucinations: Other (Remains int stim) Delusions: Yes Delusion Type: Paranoid (re: AIDS, ongoing still) Suicidal: Ideation (No SI) Homicidal: Ideation (No HI) Insight/Judgement Poor Remarks No motor abnormalities noted. Speech rambling. TP perseverative on delusional themes. Labs Labs reviewed. Vitals/IOs Vital Signs Date Time Temp Pulse Resp B/P Pulse Ox O2 Delivery O2 Flow Rate FiO2 01/05/17 05:44 97.2 72 18 110/62 98 Assessment & Plan Problem List: (1) Schizophrenia ICD Code: F20.9 Assessment & Plan We don't seem to be gaining much purchase against patient's paranoid delusions as of yet. I will begin adding daytime Seroquel to patient's nighttime 400mg dose, with a target dose of 800mg/day total daily dose. Continue to monitor on the inpatient psychiatric unit. Continue other medications and care as ordered. Justification for Cont. Inpt. Impairment in reality construction. Dedication changes in process. High risk for decompensation pending psychiatric stabilization. Discharge Planning Return to facility once psychiatrically stabilized versus state psychiatric hospital referral if patient remains too symptomatic despite medication adjustments for placement. Request HC Surrog/Guard Advoc?: Yes Problem Qualifiers (1) Schizophrenia: Qualified Code: F20.0 - Paranoid schizophrenia Marques Fregoso MD Jan 05, 2017 10:10
[2017-01-05] MEDS: RIVAROXABAN 20 MG TAB PO SCH (17:59)
[2017-01-05 18:00] VITALS: BP 136/64; PULSE 71; RESP 16; TEMP 98.7
[2017-01-05] MEDS: QUEtiapine FUMARATE 200 MG TAB PO SCH (20:08)
[2017-01-05] MEDS: AMANTADINE HCL 100 MG CAP PO SCH (20:08)
[2017-01-05] MEDS: diphenhydrAMINE HCL 50 MG CAP PO PRN (20:08)
[2017-01-06 05:57] VITALS: BP 104/68; PULSE 76; RESP 18; TEMP 98.2; O2SAT 99
[2017-01-06] MEDS: PROPRANOLOL HCL 40 MG TAB PO SCH ×2 (08:54→20:32)
[2017-01-06] MEDS: LISINOPRIL 10 MG TAB PO SCH (08:54)
[2017-01-06] MEDS: QUEtiapine FUMARATE 100 MG TAB PO SCH (08:54)
[2017-01-06] MEDS: diphenhydrAMINE HCL 50 MG CAP PO PRN ×2 (08:54→20:32)
--- NOTE | 2017-01-06 12:37 | HHI.PYPN ---
Subjective Remarks Patient remains markedly delusional, confused and exhibits loose associations. Review of Systems ROS Limitations: Clinical Condition Objective Alert: Yes [place]: Person, Place Mood: Anxious, Other (somewhat irritable) Affect: Restricted Memory Intact: Comment (Not assessed) Hallucinations: Other (Remains int stim) Delusions: Yes Delusion Type: Paranoid (re: AIDS, ongoing still) Suicidal: Ideation (No SI) Homicidal: Ideation (No HI) Insight/Judgment Markedly impaired. Labs Test 01/05/17 14:09 HIV (1&2) Antibody NEGATIVE Vitals/IOs Vital Signs Date Time Temp Pulse Resp B/P Pulse Ox O2 Delivery O2 Flow Rate FiO2 01/06/17 05:57 98.2 76 18 104/68 99 Assessment & Plan Problem List: (1) Schizophrenia ICD Code: F20.9 Assessment & Plan Estimated LOS: 7 days patient continues to require antipsychotic medication and is responding only minimally at this time. Plan is to continue with antipsychotic medication for the weekend and determine its effectiveness. Justification for Cont. Inpt. Psychotic and unable to care for self. Request HC Surrog/Guard Advoc?: Yes Problem Qualifiers (1) Schizophrenia: Qualified Code: F20.0 - Paranoid schizophrenia Joey Reis MD Jan 06, 2017 12:37
[2017-01-06] MEDS: RIVAROXABAN 20 MG TAB PO SCH (18:00)
[2017-01-06 19:02] VITALS: BP 139/77; PULSE 81; RESP 18; TEMP 98.1; O2SAT 98
[2017-01-06] MEDS: MAGNESIUM HYDROXIDE SUSP 30 ML CUP PO PRN (20:13)
[2017-01-06] MEDS: QUEtiapine FUMARATE 200 MG TAB PO SCH (20:32)
[2017-01-06] MEDS: AMANTADINE HCL 100 MG CAP PO SCH (21:00)
[2017-01-07 05:51] VITALS: BP 170/70; PULSE 79; RESP 20; TEMP 97.6; O2SAT 97
[2017-01-07] MEDS: LISINOPRIL 10 MG TAB PO SCH (10:13)
[2017-01-07] MEDS: QUEtiapine FUMARATE 100 MG TAB PO SCH (10:13)
[2017-01-07] MEDS: PROPRANOLOL HCL 40 MG TAB PO SCH ×2 (10:13→22:30)
[2017-01-07 17:00] VITALS: BP 119/57; PULSE 66; RESP 19; TEMP 97.8; O2SAT 97
--- NOTE | 2017-01-07 17:56 | HHI.PYPN ---
Subjective Remarks Patient was seen and case discussed with nursing. Patient is initially pleasant but after a couple questions becomes very guarded. Afterwards he gets angry and starts cursing and saying he is going to cornelius me for 80% of my savings. Poor insight into admission and his mental health. Compliant with medications Objective Alert: Yes [place]: Person, Place Mood: Agitated, Angry Affect: Blunted Memory Intact: Comment (Not assessed) Hallucinations: Other (internal stimuli) Delusions: Yes Delusion Type: Paranoid (would not answer today) Suicidal: Ideation (No SI) Homicidal: Ideation (No HI) Insight/Judgment Poor Vitals/IOs Vital Signs Date Time Temp Pulse Resp B/P Pulse Ox O2 Delivery O2 Flow Rate FiO2 01/07/17 17:00 97.8 66 19 119/57 97 Assessment & Plan Problem List: (1) Schizophrenia ICD Code: F20.9 Assessment & Plan Continue current treatment plan Justification for Cont. Inpt. Patient will decompensate in a less restrictive setting Request HC Surrog/Guard Advoc?: Yes Problem Qualifiers (1) Schizophrenia: Qualified Code: F20.0 - Paranoid schizophrenia Agustin Mckeon DO Jan 07, 2017 17:56
[2017-01-07] MEDS: RIVAROXABAN 20 MG TAB PO SCH (18:00)
[2017-01-07] MEDS: QUEtiapine FUMARATE 200 MG TAB PO SCH (22:30)
[2017-01-07] MEDS: AMANTADINE HCL 100 MG CAP PO SCH (22:31)
[2017-01-08 05:47] VITALS: BP 130/63; PULSE 78; RESP 22; TEMP 98; O2SAT 98
[2017-01-08] MEDS: LISINOPRIL 10 MG TAB PO SCH (08:28)
[2017-01-08] MEDS: PROPRANOLOL HCL 40 MG TAB PO SCH ×2 (08:29→20:45)
[2017-01-08] MEDS: QUEtiapine FUMARATE 100 MG TAB PO SCH (08:57)
[2017-01-08] MEDS: RIVAROXABAN 20 MG TAB PO SCH (17:35)
--- NOTE | 2017-01-08 18:58 | HHI.PYPN ---
Subjective Remarks Patient was seen and case discussed with nursing. Patient remains irritable and uncooperative. Continues to threaten to cornelius everybody. He describes a chest pain but is uncooperative with further questioning. Later makes and incoherent statements that it started in 1986 continues up until now. Blood pressure has been elevated. Very guarded about his hallucinations and asking about them seems to trigger his anger Objective Alert: Yes [place]: Person, Place Mood: Agitated, Angry, Oppositional Affect: Flat Memory Intact: Comment (Not assessed) Hallucinations: Other (internal stimuli) Delusions: Yes Delusion Type: Paranoid (would not answer today) Suicidal: Ideation (No SI) Homicidal: Ideation (No HI) Insight/Judgment Poor Vitals/IOs Vital Signs Date Time Temp Pulse Resp B/P Pulse Ox O2 Delivery O2 Flow Rate FiO2 01/08/17 05:47 98.0 78 22 130/63 98 Assessment & Plan Problem List: (1) Schizophrenia ICD Code: F20.9 Assessment & Plan As a precaution, we will get an EKG and a medical consult Justification for Cont. Inpt. Patient will decompensate in a less restrictive setting Request HC Surrog/Guard Advoc?: Yes Problem Qualifiers (1) Schizophrenia: Qualified Code: F20.0 - Paranoid schizophrenia Agustin Mckeon DO Jan 08, 2017 18:58
[2017-01-08 20:00] VITALS: BP 126/64; PULSE 78
[2017-01-08] MEDS: QUEtiapine FUMARATE 200 MG TAB PO SCH (20:45)
[2017-01-08] MEDS: AMANTADINE HCL 100 MG CAP PO SCH (20:45)
[2017-01-08] MEDS: hydrOXYzine HCL 50 MG TAB PO PRN (20:45)
[2017-01-09 06:17] VITALS: BP 141/67; PULSE 89; RESP 16; TEMP 98; O2SAT 95
[2017-01-09 08:41] VITALS: BP 141/63
[2017-01-09] MEDS: PROPRANOLOL HCL 40 MG TAB PO SCH ×3 (08:45→20:38)
[2017-01-09] MEDS: LISINOPRIL 10 MG TAB PO SCH (08:45)
[2017-01-09] MEDS: QUEtiapine FUMARATE 100 MG TAB PO SCH (08:46)
--- NOTE | 2017-01-09 10:46 | HHI.PYPN ---
Subjective Remarks Patient seen and examined with counselor and nurse. Chart reviewed. Case discussed with nursing staff who reports patient remains somewhat bizarre reportedly refused laboratories this morning. On my examination today, the patient complains of feeling somewhat tired and attributes this to the uncomfortableness of his bed. Asking about himself in the third person and he says "When Jorge leaving?" He remains religiously preoccupied. He is discharge focused. He says that he is unlikely to remain on psychotropics after discharge because they "cause leukemia." He insists that I must discharge him now and badgers me about this, saying, "Say it! Say it! [Say he can go to] [facility] or you'll be sued and never be an archangel in my eyes!" Despite believing that the psychotropics are causing leukemia, he denies side effects from medications and appears to be accepting the Seroquel. Review of Systems Except as stated in HPI: all other systems reviewed are Neg Objective Alert: Yes [place]: Person, Place Mood: Anxious, Oppositional Affect: Flat Memory Intact: Comment (Not assessed) Hallucinations: Other (remains internally preoccupied) Delusions: Yes Delusion Type: Paranoid (ongoing paranoid and episcopal delusions as noted above) Suicidal: Ideation (No SI) Homicidal: Ideation (No HI) Insight/Judgment Poor Remarks No motor abnormalities noted. In particular no hand tremor noted today. Thought process perseverative on discharge. Speech a little bit rambling. Labs Test 01/08/17 21:07 Troponin I 0.04 NG/ML Labs reviewed. Vitals/IOs Vital Signs Date Time Temp Pulse Resp B/P Pulse Ox O2 Delivery O2 Flow Rate FiO2 01/09/17 08:41 141/63 01/09/17 06:17 98.0 89 16 95 Assessment & Plan Problem List: (1) Schizophrenia ICD Code: F20.9 Assessment & Plan Patient was titrated over the weekend to Seroquel 400 mg twice daily. Although I don't really see a lot of benefit from this medication, I will give him another day or 2 at this dose before considering the trial of failure. If we are forced to pick yet another agent, I will try to select one with an available long-acting injectable given the patient's reticence to take medications for the stated reasons noted above. Continue to monitor on the inpatient unit. Continue other medications and care as ordered. Justification for Cont. Inpt. Impairment in reality construction. High risk for decompensation in a less restrictive environment. Discharge Planning Return to facility versus state psychiatric hospital referral, the latter if the patient's symptoms cannot be brought under good control Request HC Surrog/Guard Advoc?: Yes Problem Qualifiers (1) Schizophrenia: Qualified Code: F20.0 - Paranoid schizophrenia Marques Fregoso MD Jan 09, 2017 10:46
--- NOTE | 2017-01-09 14:08 | EKG ---
Date Performed: 01/08/2017 Time Performed: 19:19:29 PTAGE: 61 years EKG: Sinus rhythm Since previous tracing, no significant change noted NORMAL ECG PREVIOUS TRACING : 12/19/2016 01.48 DOCTOR: Tiffanie Comer Interpretating Date/Time 01/09/2017 14:07:23
--- NOTE | 2017-01-09 16:28 | HHI.PR ---
Subjective Remarks Reconsulted for chest pain. Patient seen today. Reports he has chest pain, 10/10, lower midsternum, nonradiating, not associated with nausea, vomiting or diaphoresis. Patient states chest pain started "years ago, from the wounds of Parker, on his bilateral ankles and foot." Patient was hyperverbal, states he has heart attack before and he wanted to be discharge to go to [facility] for his treatment, because he is a Orthodoxy. Disorganized though process, jumps from one topic to the other. Very difficult to get subjective information regarding his complaints, religiosity. Denies SOB/ dyspnea. Denies palpitations, headaches, dizziness. Denies fevers, chills, n/v/d. Objective Vitals Vital Signs Date Time Temp Pulse Resp B/P Pulse Ox O2 Delivery O2 Flow Rate FiO2 01/09/17 08:41 141/63 01/09/17 06:17 98.0 89 16 141/67 95 01/08/17 20:00 78 126/64 Objective Remarks GENERAL: This is a well-nourished, older than stated age, well-developed patient , disheveled. HEENT: Normocephalic. Pupils equal round and reactive. Nose without bleeding. Airway patent. NECK: Trachea midline. No JVD. Supple. CARDIOVASCULAR: Regular rate and rhythm systolic 2/6 murmurs, gallops, or rubs. RESPIRATORY: Clear to auscultation. Breath sounds equal bilaterally. No wheezes , rales, or rhonchi. Midsternum tender to palpation. GASTROINTESTINAL: Abdomen soft, non-tender, nondistended. Bowel Sounds normoactive x4. MUSCULOSKELETAL: Extremities without clubbing, cyanosis, bilateral lower extremity +2 edema. NEUROLOGICAL: Awake and alert. COLBERT. Normal speech. A/P Problem List: (1) Schizophrenia ICD Code: F20.9 Status: Acute Assessment and Plan Patient is a 61 year old male with primary medical history of pulmonary embolism, schizophrenia, HTN, HLD who came from [facility] living [facility] under Pritchard act secondary to severe agitation, physically and verbally aggressive towards staff touching staff and peers. He is now admitted to inpatient psychiatry and further evaluation. Schizophrenia, decompensated. Further management per psychiatry Chest pain - reproducible on palpation - Subjective data unreliable secondary to patient's disorganized thought with religiosity - EKG was done yesterday showed sinus rhythm with no acute changes from previous - Troponin 0.04. We'll do serial troponin 2, serial CK times - Nitroglycerin sublingual when necessary - Chest pain can also be secondary to history of pulmonary embolism. - Chest x-ray follow-up results - Check CBC, CMP, magnesium Pulmonary embolism. Continue Xarelto Chronic recurrent hyponatremia likely secondary to antipsychotics. Monitor Chronic edema. Consider diuretics or discontinue Norvasc - If continues to have edema, may start on Lasix 20 mg daily. Hypertension. Continue Norvasc and Inderal DVT prophylaxis on Xarelto Discussed with patient, nursing, Dr. Ho Problem Qualifiers (1) Schizophrenia: Qualified Code: F20.0 - Paranoid schizophrenia Maria R Higuera Jan 09, 2017 16:27 Faviola Ho MD Jan 10, 2017 18:26
--- NOTE | 2017-01-09 16:40 | RADRPT ---
EXAM DATE/TIME: 01/09/2017 16:07 [place] COMPARISON: No previous studies available for comparison. INDICATIONS : Chest pain on and off for the past year. MEDICAL HISTORY : Hypertension. Myocardial infarction. SURGICAL HISTORY : None. ENCOUNTER: Initial ACUITY: 1 year PAIN SCORE: 5/10 LOCATION: Bilateral chest FINDINGS: A single view of the chest demonstrates the lungs to be symmetrically aerated without evidence of mas s, infiltrate or effusion. The cardiomediastinal contours are unremarkable. Osseous structures are intact. CONCLUSION: Normal examination. Trip Odell MD on January 09, 2017 at 16:39 Board Certified Radiologist. This report was verified electronically.
[2017-01-09 16:57] LABS: AUTOMATED NEUTROPHIL # 6.8 TH/MM3 (1.8-7.7); BASOPHIL # 0.1 TH/MM3 (0-0.2); BASOPHIL % 0.6 % (0.0-2.0); EOSINOPHIL # 0.2 TH/MM3 (0-0.4); HEMATOCRIT 35.9 % (39.0-51.0); HEMO FLAGS DIFF FINAL; LYMPH % 20.9 % (9.0-44.0); LYMPHOCYTE # 2.1 TH/MM3 (1.0-4.8); NEUT % 66.5 % (16.0-70.0); PLATELET COUNT 294 TH/MM3 (150-450); RED BLOOD COUNT 4.22 MIL/MM3 (4.50-5.90); RED CELL DISTRIBUTION WIDTH 14.7 % (11.6-17.2); WHITE BLOOD COUNT 10.3 TH/MM3 (4.0-11.0)
[2017-01-09] MEDS ORDERED: NITROGLYCERIN 0.4 MG SL 25 TABS/BTL SL PRN (17:00)
[2017-01-09 18:00] VITALS: BP 143/63; PULSE 89; RESP 18; TEMP 96.7; O2SAT 96
[2017-01-09] MEDS: RIVAROXABAN 20 MG TAB PO SCH (18:00)
[2017-01-09] MEDS: QUEtiapine FUMARATE 200 MG TAB PO SCH (20:37)
[2017-01-09] MEDS: AMANTADINE HCL 100 MG CAP PO SCH (20:37)
[2017-01-09] MEDS: diphenhydrAMINE HCL 50 MG CAP PO PRN (20:39)
[2017-01-10 06:15] VITALS: BP 146/73; PULSE 86; RESP 18; TEMP 97.4; O2SAT 96
[2017-01-10 07:36] LABS: ALKALINE PHOSPHATASE 107 U/L (45-117); ALT (GPT) 24 U/L (12-78); ANION GAP 7 MEQ/L (5-15); AST (GOT) 13 U/L (15-37); BICARBONATE 27.7 MEQ/L (21.0-32.0); BLOOD UREA NITROGEN 15 MG/DL (7-18); CHLORIDE 99 MEQ/L (98-107); GLOMERULAR FILTRATION RATE 92 ML/MIN (>89); MAGNESIUM 2.1 MG/DL (1.5-2.5); POTASSIUM 4.1 MEQ/L (3.5-5.1); SODIUM (NA) 134 MEQ/L (136-145); TOTAL BILIRUBIN ADULT 0.2 MG/DL (0.2-1.0)
[2017-01-10 07:43] LABS: CREATINE KINASE 77 U/L (39-308)
[2017-01-10] MEDS: QUEtiapine FUMARATE 100 MG TAB PO SCH (08:24)
[2017-01-10] MEDS: LISINOPRIL 10 MG TAB PO SCH (08:24)
[2017-01-10] MEDS: PROPRANOLOL HCL 40 MG TAB PO SCH ×2 (08:25→20:44)
--- NOTE | 2017-01-10 10:45 | HHI.PR ---
Addendum to Inpatient Note Addendum Reason: Additional Documentation Additional Information Follow up labs for chest pain. Troponin 1st and 2nd set .05, CK 81 and 77, EKG shows SR. Chest x-ray unremarkable. Will continue to follow. (Bernadette Reece) Bernadette Reece Jan 10, 2017 10:45 Faviola Ho MD Jan 10, 2017 18:30
--- NOTE | 2017-01-10 11:53 | HHI.PYPN ---
Subjective Remarks Patient seen and examined. Chart reviewed. Case discussed with nurse, counselor and occupational therapist in treatment team. Per nursing staff, patient refused to visit with family. He has been complaining of some constipation. Occupational therapist reports that the patient is obnoxious, intrusive and self absorbed in groups. On my examination today, the patient is irritable and quite discharge focused. He says "home in [place]! I have a home in [place]! Say it 4 times! I'm the 4th pablo and you're a stubborn archangel." Denies side effects from medications besides some mild tiredness. Review of Systems ROS Limitations: Psychotic, Poor Historian Except as stated in HPI: all other systems reviewed are Neg Objective Alert: Yes [place]: Person, Place Mood: Oppositional, Other (irritable) Affect: Restricted Memory Intact: Comment (Not assessed) Hallucinations: Other (Int stim) Delusions: Yes Delusion Type: Paranoid Suicidal: Ideation (No SI) Homicidal: Ideation (No HI) Insight/Judgment Poor Remarks No motor abnormalities noted. Thought process perseverative on discharge and delusional themes. Speech somewhat muttering and rambling. Labs Test 01/09/17 01/10/17 16:47 06:32 White Blood Count 10.3 TH/MM3 Red Blood Count 4.22 MIL/MM3 Hemoglobin 11.8 GM/DL Hematocrit 35.9 % Mean Corpuscular Volume 85.0 FL Mean Corpuscular Hemoglobin 28.0 PG Mean Corpuscular Hemoglobin 33.0 % Concent Red Cell Distribution Width 14.7 % Platelet Count 294 TH/MM3 Mean Platelet Volume 7.7 FL Neutrophils (%) (Auto) 66.5 % Lymphocytes (%) (Auto) 20.9 % Monocytes (%) (Auto) 10.0 % Eosinophils (%) (Auto) 2.0 % Basophils (%) (Auto) 0.6 % Neutrophils # (Auto) 6.8 TH/MM3 Lymphocytes # (Auto) 2.1 TH/MM3 Monocytes # (Auto) 1.0 TH/MM3 Eosinophils # (Auto) 0.2 TH/MM3 Basophils # (Auto) 0.1 TH/MM3 CBC Comment DIFF FINAL Differential Comment Total Creatine Kinase 81 U/L 77 U/L Troponin I 0.05 NG/ML 0.05 NG/ML Sodium Level 134 MEQ/L Potassium Level 4.1 MEQ/L Chloride Level 99 MEQ/L Carbon Dioxide Level 27.7 MEQ/L Anion Gap 7 MEQ/L Blood Urea Nitrogen 15 MG/DL Creatinine 0.85 MG/DL Estimat Glomerular Filtration 92 ML/MIN Rate Random Glucose 98 MG/DL Calcium Level 8.5 MG/DL Magnesium Level 2.1 MG/DL Total Bilirubin 0.2 MG/DL Aspartate Amino Transf 13 U/L (AST/SGOT) Alanine Aminotransferase 24 U/L (ALT/SGPT) Alkaline Phosphatase 107 U/L Total Protein 6.9 GM/DL Albumin 3.2 GM/DL Labs reviewed. Sodium improved. Mild normocytic anemia. EKG was normal sinus rhythm with a QTC of 383 ms. Vitals/IOs Vital Signs Date Time Temp Pulse Resp B/P Pulse Ox O2 Delivery O2 Flow Rate FiO2 01/10/17 06:15 97.4 86 18 146/73 96 Assessment & Plan Problem List: (1) Schizophrenia ICD Code: F20.9 Assessment & Plan Patient remains fairly psychotic despite robust dose of Seroquel. However, the patient seems to be tolerating this agent well without significant side effects , and so I will try to titrate this agent above the normal dosing range to 300/ 600 mg. We might consider titrating as high as 0790-0892 mg daily to see if we can derive some additional benefit from this agent so long as good tolerability is preserved. Continue to monitor on the inpatient psychiatric unit. Hospitalist business continuity consultant input noted and appreciated. Continue other medications include care as ordered. Justification for Cont. Inpt. Impairment in reality construction. Impairment in social function. Medication changes and process. High risk for decompensation in a less restrictive environment. Discharge Planning Return to facility versus [facility] placement Request HC Surrog/Guard Advoc?: Yes Problem Qualifiers (1) Schizophrenia: Qualified Code: F20.0 - Paranoid schizophrenia Marques Fregoso MD Jan 10, 2017 11:53
[2017-01-10] MEDS: RIVAROXABAN 20 MG TAB PO SCH (17:46)
[2017-01-10 18:13] VITALS: BP 114/73; PULSE 72; RESP 18; TEMP 98.6; O2SAT 97
[2017-01-10] MEDS: QUEtiapine FUMARATE 300 MG TAB PO SCH (20:44)
[2017-01-10] MEDS: AMANTADINE HCL 100 MG CAP PO SCH (20:44)
[2017-01-11 06:08] VITALS: BP 127/77; PULSE 77; RESP 16; TEMP 97.8; O2SAT 95
[2017-01-11] MEDS: LISINOPRIL 10 MG TAB PO SCH (08:33)
[2017-01-11] MEDS: PROPRANOLOL HCL 40 MG TAB PO SCH ×2 (08:34→20:24)
[2017-01-11] MEDS: QUEtiapine FUMARATE 300 MG TAB PO SCH ×2 (08:34→20:24)
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
--- NOTE | 2017-01-11 12:09 | HHI.PYPN ---
Subjective Remarks Patient seen and examined. Chart reviewed. Case discussed with nursing staff who reports patient has been no real behavioral problem. On my examination today, patient seems calmer versus yesterday. He seems less irritable. He remains discharge focused but is less insistent upon this. He continues to articulate some paranoid delusions. He denies side effects from medications. Review of Systems ROS Limitations: Psychotic, Poor Historian Except as stated in HPI: all other systems reviewed are Neg Objective Alert: Yes [place]: Person, Place Mood: Other (calmer today) Affect: Blunted Memory Intact: Comment (Not assessed) Hallucinations: Other (remains a little internally preoccupied) Delusions: Yes Delusion Type: Paranoid Suicidal: Ideation (No SI) Homicidal: Ideation (No HI) Insight/Judgment Poor Remarks No motor abnormalities noted. Grooming and hygiene fair. Labs Labs reviewed. Vitals/IOs Vital Signs Date Time Temp Pulse Resp B/P Pulse Ox O2 Delivery O2 Flow Rate FiO2 01/11/17 06:08 97.8 77 16 127/77 95 Intake and Output 01/10/17 01/10/17 01/11/17 08:00 16:00 00:00 Intake Total 480 ml Balance 480 ml Assessment & Plan Problem List: (1) Schizophrenia ICD Code: F20.9 Assessment & Plan Continue Seroquel 300/600 mg. Patient seems to be deriving some benefit from this increased dose of medication. To consider further titration within the next day or 2. Continue to monitor on the inpatient psychiatric unit. Continue other medications and care as ordered. Justification for Cont. Inpt. Impairment in reality construction. Planned medication changes. Risk for decompensation in a less restrictive environment. Discharge Planning [facility] facility [facility] hospital. Request HC Surrog/Guard Advoc?: Yes Problem Qualifiers (1) Schizophrenia: Qualified Code: F20.0 - Paranoid schizophrenia Marques Fregoso MD Jan 11, 2017 12:08
[2017-01-11] MEDS: RIVAROXABAN 20 MG TAB PO SCH (17:17)
[2017-01-11] MEDS: AMANTADINE HCL 100 MG CAP PO SCH (20:24)
[2017-01-11 21:49] VITALS: BP 129/58; PULSE 74; RESP 16; TEMP 98.3; O2SAT 97
[2017-01-12 06:10] VITALS: BP 142/70; PULSE 85; RESP 18; TEMP 98; O2SAT 96
[2017-01-12] MEDS: LISINOPRIL 10 MG TAB PO SCH (08:42)
[2017-01-12] MEDS: PROPRANOLOL HCL 40 MG TAB PO SCH ×2 (08:42→21:37)
[2017-01-12] MEDS: QUEtiapine FUMARATE 300 MG TAB PO SCH ×2 (08:42→21:37)
--- NOTE | 2017-01-12 10:40 | HHI.PYPN ---
Subjective Remarks Patient seen and examined. Chart reviewed. Case discussed with nursing staff who reports that the patient continues to talk to himself and sometimes seems to get angry at the voices in his head. On my examination today, the patient is calm but discharge focused. He is somatically preoccupied. He is certain that his psychotropics are adversely affecting his kidneys and liver, although there is no objective evidence for this, and I suspect this reflects a general resistance to accepting medications. He is paranoid and suspicious of the counselor, who accompanies me on rounds, demanding to know his last name. Review of Systems ROS Limitations: Psychotic, Poor Historian Except as stated in HPI: all other systems reviewed are Neg Objective Alert: Yes [place]: Person, Place (at least) Mood: Calm Affect: Restricted Memory Intact: Comment (Not assessed) Hallucinations: Other (int stim) Delusions: Yes Delusion Type: Paranoid Suicidal: Ideation (No SI) Homicidal: Ideation (No HI) Insight/Judgment Poor Remarks No abnormal motor movements noted. Patient is in no objective acute physical distress. Thought process perseverative on discharge. Labs Labs reviewed. Most recent set of LFTs and GFR are unremarkable Vitals/IOs Vital Signs Date Time Temp Pulse Resp B/P Pulse Ox O2 Delivery O2 Flow Rate FiO2 01/12/17 06:10 98.0 85 18 142/70 96 Assessment & Plan Problem List: (1) Schizophrenia ICD Code: F20.9 Assessment & Plan Seroquel does seem to be making the patient somewhat calmer, although it is not having a great effect on his delusions, which I fear may be fixed at this point. I will titrate Seroquel to 200/200/600mg as he seems to be tolerating this agent well. Since he already got the 300mg dose this morning, I will give 100mg this afternoon and order picker with the new dosing tomorrow. Continue to monitor on the inpatient unit. Continue other medications and care as ordered. Justification for Cont. Inpt. Impairment in reality construction. Impairment in social functioning. Medication changes in process. High risk for decompensation pending psychiatric stabilization. Discharge Planning I am hopeful that we will be able to obtain adequate control of patient's symptoms to allow him to return to his facility. [facility] referral represents an alternative plan. Request HC Surrog/Guard Advoc?: Yes Problem Qualifiers (1) Schizophrenia: Qualified Code: F20.0 - Paranoid schizophrenia Marques Fregoso MD Jan 12, 2017 10:40
[2017-01-12] MEDS ORDERED: QUEtiapine FUMARATE 100 MG TAB PO ONE (13:00)
[2017-01-12] MEDS: RIVAROXABAN 20 MG TAB PO SCH (16:40)
[2017-01-12 18:44] VITALS: BP 128/58; PULSE 78; RESP 16; TEMP 98.2; O2SAT 98
[2017-01-12] MEDS: AMANTADINE HCL 100 MG CAP PO SCH (21:00)
[2017-01-13 05:54] VITALS: BP 126/71; PULSE 76; RESP 18; TEMP 97.4; O2SAT 98
[2017-01-13] MEDS: PROPRANOLOL HCL 40 MG TAB PO SCH ×2 (08:42→21:41)
[2017-01-13] MEDS: LISINOPRIL 10 MG TAB PO SCH (08:42)
[2017-01-13] MEDS ORDERED: QUEtiapine FUMARATE 200 MG TAB PO SCH ×2 (09:00)
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
[2017-01-13] MEDS ORDERED: BISACODYL EC 5 MG TABEC PO PRN (11:15)
[2017-01-13] MEDS: RIVAROXABAN 20 MG TAB PO SCH (17:05)
[2017-01-13 18:05] VITALS: BP 133/74; PULSE 82; RESP 18; TEMP 98.3; O2SAT 97
[2017-01-13] MEDS: AMANTADINE HCL 100 MG CAP PO SCH (21:41)
[2017-01-13] MEDS: QUEtiapine FUMARATE 300 MG TAB PO SCH (21:42)
[2017-01-14 06:02] VITALS: BP 116/76; PULSE 69; RESP 18; TEMP 97.1; O2SAT 96
[2017-01-14] MEDS: LISINOPRIL 10 MG TAB PO SCH (08:11)
[2017-01-14] MEDS: PROPRANOLOL HCL 40 MG TAB PO SCH ×2 (08:11→21:33)
[2017-01-14] MEDS: QUEtiapine FUMARATE 200 MG TAB PO SCH (08:12)
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
[2017-01-14] MEDS: POTASSIUM CHLORIDE 10 MEQ CONTROLLED RELEASE TAB PO SCH (13:45)
[2017-01-14] MEDS: FUROSEMIDE 20 MG TAB PO SCH (13:45)
[2017-01-14] MEDS: RIVAROXABAN 20 MG TAB PO SCH (17:38)
[2017-01-14 20:22] VITALS: BP 131/68; PULSE 77; RESP 18; TEMP 97.5; O2SAT 98
[2017-01-14] MEDS: QUEtiapine FUMARATE 300 MG TAB PO SCH (21:33)
[2017-01-14] MEDS: AMANTADINE HCL 100 MG CAP PO SCH (21:33)
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
[2017-01-15 06:27] VITALS: BP 119/65; PULSE 75; RESP 20; TEMP 98.9; O2SAT 100
[2017-01-15] MEDS: LISINOPRIL 10 MG TAB PO SCH (08:58)
[2017-01-15] MEDS: POTASSIUM CHLORIDE 10 MEQ CONTROLLED RELEASE TAB PO SCH (08:58)
[2017-01-15] MEDS: PROPRANOLOL HCL 40 MG TAB PO SCH ×2 (08:58→20:56)
[2017-01-15] MEDS: FUROSEMIDE 20 MG TAB PO SCH (08:59)
[2017-01-15] MEDS: QUEtiapine FUMARATE 200 MG TAB PO SCH (09:00)
[2017-01-15] MEDS: MAGNESIUM HYDROXIDE SUSP 30 ML CUP PO PRN (13:33)
--- NOTE | 2017-01-15 13:51 | HHI.PYPN ---
Subjective Remarks Pt seen and discussed with staff. Pt has been less intrusive today. Impulse control is still limited with some disorganized behavior. No SI/HI. No medication side effects. Objective Alert: Yes [place]: Person, Place Mood: Calm Affect: Restricted Memory Intact: Comment (fair) Hallucinations: Other (remains internally preoccupied) Delusions: Yes Delusion Type: Paranoid Suicidal: Ideation (no SI voiced) Homicidal: Ideation (no HI voiced) Insight/Judgment poor Vitals/IOs Vital Signs Date Time Temp Pulse Resp B/P Pulse Ox O2 Delivery O2 Flow Rate FiO2 01/15/17 06:27 98.9 75 20 119/65 100 Assessment & Plan Problem List: (1) Schizophrenia ICD Code: F20.9 Assessment & Plan Continue current tx plan. Estimated LOS: days Justification for Cont. Inpt. impairments in reality testing and social functioning Request HC Surrog/Guard Advoc?: Yes Problem Qualifiers (1) Schizophrenia: Qualified Code: F20.0 - Paranoid schizophrenia Vandana Macdonald MD Jan 15, 2017 13:51
[2017-01-15 15:40] VITALS: BP 119/68; PULSE 74; RESP 18; TEMP 99.1; O2SAT 94
[2017-01-15] MEDS: RIVAROXABAN 20 MG TAB PO SCH (18:24)
[2017-01-15] MEDS: AMANTADINE HCL 100 MG CAP PO SCH (20:56)
[2017-01-15] MEDS: QUEtiapine FUMARATE 300 MG TAB PO SCH (20:58)
[2017-01-16 05:15] VITALS: BP 130/64; PULSE 70; RESP 18; TEMP 97.3; O2SAT 97
[2017-01-16] MEDS: FUROSEMIDE 20 MG TAB PO SCH (09:28)
[2017-01-16] MEDS: QUEtiapine FUMARATE 200 MG TAB PO SCH (09:29)
[2017-01-16] MEDS: LISINOPRIL 10 MG TAB PO SCH (09:29)
[2017-01-16] MEDS: POTASSIUM CHLORIDE 10 MEQ CONTROLLED RELEASE TAB PO SCH (09:29)
--- NOTE | 2017-01-16 10:05 | HHI.PYPN ---
Subjective Remarks Patient seen and examined with counselor. Chart reviewed. Case discussed with nursing staff who reports patient remained psychotic and irritable at intervals. On my examination today, the patient presents as accusatory and irritable. He tells the counselor that counselor is lying to him (he is not): "don't lie to me, it's the 8th commandment!" He remains quite discharge focused and resumes demanding that I say "[place]," saying that he wants "to go home to [place] today, right, or the lawsuits will come!" Denies side effects from medications. Review of Systems ROS Limitations: Psychotic, Poor Historian Except as stated in HPI: all other systems reviewed are Neg Objective Alert: Yes [place]: Person, Place Mood: Angry Affect: Restricted (irritable and dysphoric) Memory Intact: Comment (fair) Hallucinations: Other (Int stim) Delusions: Yes Delusion Type: Paranoid Suicidal: Ideation (No SI) Homicidal: Ideation (No HI) Insight/Judgment Poor Remarks No motor abnormalities noted. Speech somewhat rambling but otherwise within normal limits for rate. Grooming and hygiene fair. Labs Labs reviewed. Vitals/IOs Vital Signs Date Time Temp Pulse Resp B/P Pulse Ox O2 Delivery O2 Flow Rate FiO2 01/16/17 05:15 97.3 70 18 130/64 97 Assessment & Plan Problem List: (1) Schizophrenia ICD Code: F20.9 Assessment & Plan Seroquel titration was performed over the weekend and patient started 600mg BID dose today. Not much benefit that I can discern at this time from this medication as the patient remains quite irritable and paranoid, but I will give this dose another day or two to see if he derives additional benefit. If not, we may be forced to try to augment or switch to a different agent. Could also consider adding a mood stabilizer for irritability, if he will take it. Continue to monitor on the high acuity unit. Continue other medications and care as ordered. Justification for Cont. Inpt. Impairment in reality construction. Impairment in social function. High risk for decompensation in a less restrictive environment. Discharge Planning If the patient's condition can be adequately stabilized we will try to return him to his facility. If not, state psychiatric hospitalization is an alternative. Request HC Surrog/Guard Advoc?: Yes Problem Qualifiers (1) Schizophrenia: Qualified Code: F20.0 - Paranoid schizophrenia Marques Fregoso MD Jan 16, 2017 10:05
[2017-01-16] MEDS: PROPRANOLOL HCL 40 MG TAB PO SCH ×2 (12:28→20:20)
[2017-01-16] MEDS: MAGNESIUM HYDROXIDE SUSP 30 ML CUP PO PRN (15:38)
[2017-01-16 16:40] VITALS: BP 115/59; PULSE 85; RESP 18; TEMP 98.3; O2SAT 96
--- NOTE | 2017-01-16 16:54 | HHI.PR ---
Subjective Remarks Follow-up visit bilateral lower extremity edema, HTN. Patient seen and examined today. Reports bilateral lower extremity swelling is due to the "wounds of Parker" and it can be okay. Denies pain and discomfort. Denies SOB / dyspnea. Denies chest pain, palpitations, headaches, dizziness. Denies fevers , chills, n/v/d. Objective Vitals Vital Signs Date Time Temp Pulse Resp B/P Pulse Ox O2 Delivery O2 Flow Rate FiO2 01/16/17 16:40 98.3 85 18 115/59 96 01/16/17 05:15 97.3 70 18 130/64 97 Objective Remarks GENERAL: This is a well-nourished, older than stated age, well-developed patient , disheveled. HEENT: Normocephalic. Pupils equal round and reactive. Nose without bleeding. Airway patent. NECK: Trachea midline. No JVD. Supple. CARDIOVASCULAR: Regular rate and rhythm systolic 2/6 murmurs, gallops, or rubs. RESPIRATORY: Clear to auscultation. Breath sounds equal bilaterally. No wheezes , rales, or rhonchi. Midsternum tender to palpation. GASTROINTESTINAL: Abdomen soft, non-tender, nondistended. Bowel Sounds normoactive x4. MUSCULOSKELETAL: Extremities without clubbing, cyanosis, bilateral lower extremity +1 edema. NEUROLOGICAL: Awake and alert. COLB[place]. Normal speech. A/P Problem List: (1) Schizophrenia ICD Code: F20.9 Status: Acute (2) Chest pain ICD Code: R07.9 Status: Acute Assessment and Plan Patient is a 61 year old male with primary medical history of pulmonary embolism, schizophrenia, HTN, HLD who came from [facility] assisted living [facility] under [place] act secondary to severe agitation, physically and verbally aggressive towards staff touching staff and peers. He is now admitted to inpatient psychiatry and further evaluation. Schizophrenia, decompensated. Further management per psychiatry Chest pain - reproducible on palpation - Subjective data unreliable secondary to patient's disorganized thought with religiosity - EKG was done yesterday showed sinus rhythm with no acute changes from previous - Troponin 0.04. serial troponin 2, serial CK ... negative - Nitroglycerin sublingual when necessary Pulmonary embolism. Continue Xarelto Chronic recurrent hyponatremia likely secondary to antipsychotics. Monitor Chronic edema - DC Norvasc for now. Start Lasix 20 mg daily 5 days. - Check BMP - Improving. If continues to improve, continue Lasix and DC Norvasc Hypertension. Continue Norvasc and Inderal DVT prophylaxis on Xarelto Discussed with patient, nursing Written by Maria R Tena, acting as scribe for Dr. Dexter on 01/16/17 at 16: 54. This note was transcribed by scribe Maria R Tena. I, Dr. Guzman Dexter personally performed the history, physical exam, and medical decision making; and confirmed the accuracy of the information in the transcribed note. Authenticated by Dr. Guzman Dexter on 01/16/17 at 16:54. Problem Qualifiers (1) Schizophrenia: Qualified Code: F20.0 - Paranoid schizophrenia Maria R Higuera Jan 16, 2017 16:54 Guzman Dexter MD Jan 17, 2017 17:17
[2017-01-16 17:28] VITALS: BP 115/59; PULSE 85; RESP 18; TEMP 98.3
[2017-01-16] MEDS: RIVAROXABAN 20 MG TAB PO SCH (17:41)
[2017-01-16] MEDS: diphenhydrAMINE HCL 50 MG CAP PO PRN (20:20)
[2017-01-16] MEDS: AMANTADINE HCL 100 MG CAP PO SCH (20:20)
[2017-01-16] MEDS: QUEtiapine FUMARATE 300 MG TAB PO SCH (20:20)
[2017-01-17] MEDS: FUROSEMIDE 20 MG TAB PO SCH (09:18)
[2017-01-17] MEDS: PROPRANOLOL HCL 40 MG TAB PO SCH ×3 (09:18→20:46)
[2017-01-17] MEDS: LISINOPRIL 10 MG TAB PO SCH (09:18)
[2017-01-17] MEDS: QUEtiapine FUMARATE 200 MG TAB PO SCH (09:18)
[2017-01-17] MEDS: POTASSIUM CHLORIDE 10 MEQ CONTROLLED RELEASE TAB PO SCH (09:19)
--- NOTE | 2017-01-17 12:44 | HHI.PYPN ---
Subjective Remarks Patient seen and examined with nurse. Chart reviewed. Case discussed in treatment team with nurse and counselor. Per nursing staff, patient is more or less unchanged today. On my examination today, the patient tells me that his Seroquel is causing him leukemia and that Ramesh had leukemia in the past. He crosses himself as he says this. He remains insistent that I discharge him to [place] and resumes badgering me to say "[place]." Becomes somewhat agitated on this point. Remains internally preoccupied. No evident side effects from medications. Review of Systems ROS Limitations: Psychotic, Poor Historian Except as stated in HPI: all other systems reviewed are Neg Objective Alert: Yes [place]: Person, Place Mood: Angry, Oppositional Affect: Restricted (remains irritable and dysphoric) Memory Intact: Comment (fair) Hallucinations: Other (internally preoccupied) Delusions: Yes Delusion Type: Paranoid (paranoid delusions regarding family and mormonism delusions) Suicidal: Ideation (No SI) Homicidal: Ideation (No HI) Insight/Judgment Quite poor Remarks No motoric abnormalities noted. Speech rambling. Thought process perseverative on discharge. Grooming and hygiene fair. Labs Labs reviewed. Vitals/IOs Vital Signs Date Time Temp Pulse Resp B/P Pulse Ox O2 Delivery O2 Flow Rate FiO2 01/16/17 17:28 98.3 85 18 115/59 01/16/17 16:40 96 Assessment & Plan Problem List: (1) Schizophrenia ICD Code: F20.9 Assessment & Plan Patient remains irritable and delusional despite robust dose of Seroquel. Discontinue Seroquel and replace with Zyprexa 10mg qHS PO/IM with plans to titrate to effect. Hospitalist retail wireless sales consultant input noted and appreciated. Continue to monitor on the inpatient psychiatric unit. Continue other medications and care as ordered. Justification for Cont. Inpt. Impairment in reality construction. Impairment in social functioning. Medication changes in process. High risk for decompensation in a less restrictive environment. Discharge Planning State psychiatric hospital referral. It is still my hope that the patient can be adequately stabilized to return to his facility, but the state represents a backup option. Request HC Surrog/Guard Advoc?: Yes Problem Qualifiers (1) Schizophrenia: Qualified Code: F20.0 - Paranoid schizophrenia Marques Fregoso MD Jan 17, 2017 12:44
[2017-01-17] MEDS ORDERED: OLANZapine IM 10 MG VIAL IM PRN (17:00)
[2017-01-17 18:07] VITALS: BP 118/59; PULSE 71; RESP 18; TEMP 96.7; O2SAT 95
[2017-01-17] MEDS: RIVAROXABAN 20 MG TAB PO SCH (18:22)
[2017-01-17] MEDS: diphenhydrAMINE HCL 50 MG CAP PO PRN (20:43)
[2017-01-17] MEDS: AMANTADINE HCL 100 MG CAP PO SCH (20:43)
[2017-01-17] MEDS ORDERED: OLANZapine ODT 10 MG TAB PO SCH (21:00)
[2017-01-18 06:07] VITALS: BP 152/72; PULSE 89; RESP 18; TEMP 97.2; O2SAT 96
[2017-01-18] MEDS: PROPRANOLOL HCL 40 MG TAB PO SCH ×2 (09:00→20:40)
[2017-01-18] MEDS: LISINOPRIL 10 MG TAB PO SCH (09:00)
[2017-01-18] MEDS: POTASSIUM CHLORIDE 10 MEQ CONTROLLED RELEASE TAB PO SCH (09:00)
[2017-01-18] MEDS: FUROSEMIDE 20 MG TAB PO SCH (09:00)
--- NOTE | 2017-01-18 11:15 | HHI.PYPN ---
Subjective Remarks Patient seen and examined with counselor. Chart reviewed. Case discussed with nursing staff. On my examination today, patient seems noticeably calmer after starting Zyprexa in place of Seroquel. He does continue to verbalize his previous delusional material about having a family and a home in [place] to which he must return. He remains resistant to returning to his [facility]. However , overall he seems calmer and less irritable when discussing these topics which previously occasioned significant agitation and distress. He denies side effects from the Zyprexa or other medications. Review of Systems ROS Limitations: Psychotic, Poor Historian Except as stated in HPI: all other systems reviewed are Neg Objective Alert: Yes [place]: Person, Place Mood: Other (noticeably calmer) Affect: Blunted Memory Intact: Comment (fair) Hallucinations: Other (remains somewhat internally stimulated) Delusions: Yes Delusion Type: Paranoid (ongoing paranoid delusions about family and home, although patient seems less invested in these today) Suicidal: Ideation (No SI) Homicidal: Ideation (No HI) Insight/Judgment Poor Remarks No motor abnormalities noted. Thought process fairly linear within delusional system. Speech within normal limits for rate, tone and volume. Labs Labs reviewed. No new labs. Vitals/IOs Vital Signs Date Time Temp Pulse Resp B/P Pulse Ox O2 Delivery O2 Flow Rate FiO2 01/18/17 06:07 97.2 89 18 152/72 96 Assessment & Plan Problem List: (1) Schizophrenia ICD Code: F20.9 Assessment & Plan Titrate Zyprexa to 15 mg at bedtime to target psychosis. Continue to monitor on the inpatient unit. Continue other medications and care as ordered. Justification for Cont. Inpt. Impairment in reality construction. Impairment in social function. Medication changes in process. High risk for decompensation in a less restrictive environment. Discharge Planning Return to facility once psychiatrically stabilized versus state psychiatric hospital referral. Request HC Surrog/Guard Advoc?: Yes Problem Qualifiers (1) Schizophrenia: Qualified Code: F20.0 - Paranoid schizophrenia Marques Fregoso MD Jan 18, 2017 11:15
[2017-01-18 17:01] VITALS: BP 155/71; PULSE 86; RESP 18; TEMP 97.9; O2SAT 96
[2017-01-18] MEDS: RIVAROXABAN 20 MG TAB PO SCH (18:00)
[2017-01-18] MEDS: AMANTADINE HCL 100 MG CAP PO SCH (20:40)
[2017-01-19 06:08] VITALS: BP 131/62; PULSE 71; RESP 20; TEMP 97.4; O2SAT 96
[2017-01-19 07:37] LABS: BICARBONATE 28.1 MEQ/L (21.0-32.0); POTASSIUM 4.4 MEQ/L (3.5-5.1)
[2017-01-19] MEDS: LISINOPRIL 10 MG TAB PO SCH (09:03)
[2017-01-19] MEDS: FUROSEMIDE 20 MG TAB PO SCH ×2 (09:04→15:15)
[2017-01-19] MEDS: POTASSIUM CHLORIDE 10 MEQ CONTROLLED RELEASE TAB PO SCH (09:04)
[2017-01-19] MEDS: PROPRANOLOL HCL 40 MG TAB PO SCH (09:04)
--- NOTE | 2017-01-19 10:38 | HHI.PYPN ---
Subjective Remarks Patient seen and examined with counselor. Chart reviewed. Case discussed with nursing staff who reports patient continues to articulate some bizarre ideation. On my examination today, patient says that he must be discharged because, "my is with 7-12 babies. I'm a multiple father. I'm of [place] descent." He remains resistant to returning to [facility] and insists he can go to the house he thinks he has in [place]. No side effects from medications. Review of Systems ROS Limitations: Psychotic, Poor Historian Except as stated in HPI: all other systems reviewed are Neg Objective Alert: Yes [place]: Person, Place Mood: Calm Affect: Blunted Memory Intact: Comment (fair) Hallucinations: Other (int stim) Delusions: Yes Delusion Type: Paranoid (of family as noted above) Suicidal: Ideation (no SI voiced) Homicidal: Ideation (no HI voiced) Insight/Judgment Poor Remarks No abnormal motor movements noted. Labs Test 01/19/17 06:47 Sodium Level 135 MEQ/L Potassium Level 4.4 MEQ/L Chloride Level 102 MEQ/L Carbon Dioxide Level 28.1 MEQ/L Anion Gap 5 MEQ/L Blood Urea Nitrogen 14 MG/DL Creatinine 0.90 MG/DL Estimat Glomerular Filtration 86 ML/MIN Rate Random Glucose 105 MG/DL Calcium Level 9.3 MG/DL Labs reviewed. Vitals/IOs Vital Signs Date Time Temp Pulse Resp B/P Pulse Ox O2 Delivery O2 Flow Rate FiO2 01/19/17 06:08 97.4 71 20 131/62 96 Intake and Output 01/18/17 01/18/17 01/19/17 08:00 16:00 00:00 Intake Total 360 ml Balance 360 ml Assessment & Plan Problem List: (1) Schizophrenia ICD Code: F20.9 Assessment & Plan Zyprexa 15mg tonight with plans to continue to titrate this agent to target psychosis. Hospitalist cyber security consultant input noted and appreciated. Continue to monitor on the high acuity unit. Continue other medications and care as ordered. Justification for Cont. Inpt. Impairment in reality construction. High risk for decompensation in a less restrictive environment. Discharge Planning Return to facility once psychiatrically stabilized. Request HC Surrog/Guard Advoc?: Yes Problem Qualifiers (1) Schizophrenia: Qualified Code: F20.0 - Paranoid schizophrenia Marques Fregoso MD Jan 19, 2017 10:38
--- NOTE | 2017-01-19 14:45 | HHI.PR ---
Subjective Remarks Follow-up visit bilateral lower extremity edema, HTN. Patient seen and examined today. Patient continues to report that his lower extremity swelling is due to the "wounds of Parker". States that they seem improved. Denies any other acute medical complaints at this time. He denies any dizziness, fevers, chills, nausea/vomiting, chest pain, abdominal pain or shortness of breath. Objective Vitals Vital Signs Date Time Temp Pulse Resp B/P Pulse Ox O2 Delivery O2 Flow Rate FiO2 01/19/17 06:08 97.4 71 20 131/62 96 01/18/17 17:01 97.9 86 18 155/71 96 I/O 01/18/17 01/18/17 01/18/17 01/19/17 01/19/17 01/19/17 07:00 15:00 23:00 07:00 15:00 23:00 Intake Total 360 ml Balance 360 ml Intake Oral 360 ml # Voids 1 2 # Bowel Movements 1 Result Diagram: 01/19/17 0647 Objective Remarks GENERAL: This is a well-nourished, older than stated age, well-developed patient , disheveled. Sitting in the common room. HEENT: Normocephalic. EOMI. MMM. CARDIOVASCULAR: Regular rate and rhythm systolic 2/6 murmurs, gallops, or rubs. RESPIRATORY: Clear to auscultation. Breath sounds equal bilaterally. No wheezes , rales, or rhonchi. GASTROINTESTINAL: Abdomen soft, non-tender, nondistended. Bowel Sounds normoactive x4. MUSCULOSKELETAL: Extremities without clubbing, cyanosis. Trace bilateral lower extremity edema. NEUROLOGICAL: Awake and alert. Able to move all 4 extremities. Normal speech. Medications and IVs Current Medications Medications (Trade) Dose Ordered Sig/Josephine Route Start Time Stop Time Status Last Admin (Atarax) 50 mg Q6H PRN PO 12/20/16 02:00 01/08/17 20:45 (Benadryl) 50 mg Q6H PRN PO 12/20/16 02:00 01/17/17 20:43 (Tylenol) 650 mg Q4H PRN PO 12/20/16 02:00 (Milk Of Magnesia Liq) 30 ml DAILY PRN PO 12/20/16 02:00 01/16/17 15:38 (Mag-Al Plus Susp Liq) 30 ml Q6H PRN PO 12/20/16 02:00 (Xarelto) 20 mg DAILY@18 PO 12/20/16 18:00 01/18/17 18:00 (Symmetrel) 100 mg HS PO 12/20/16 21:00 01/18/17 20:40 (Norvasc) 10 mg DAILY PO 12/20/16 09:00 Hold 01/14/17 08:11 (Catapres) 0.1 mg Q6H PRN PO 12/20/16 10:45 01/08/17 18:07 (Prinivil) 10 mg DAILY PO 12/26/16 09:00 01/19/17 09:03 (Pill Splitter) 1 ea UNSCH PRN OTHER 01/02/17 15:30 (Nitrostat Sl) 0.4 mg Q5M PRN SL 01/09/17 17:00 (Dulcolax Ec) 10 mg DAILY PRN PO 01/13/17 11:15 (ZyPREXA INJ) 10 mg HS PRN IM 01/17/17 17:00 (ZyPREXA ZYDIS ODT) 15 mg HS PO 01/19/17 21:00 (Inderal) 20 mg BID PO 01/19/17 21:00 A/P Problem List: (1) Schizophrenia ICD Code: F20.9 Status: Acute (2) Chest pain ICD Code: R07.9 Status: Acute Assessment and Plan Patient is a 61 year old male with primary medical history of pulmonary embolism, schizophrenia, HTN, HLD who came from [facility] assisted living facility under [place] act secondary to severe agitation, physically and verbally aggressive towards staff touching staff and peers. He is now admitted to inpatient psychiatry and further evaluation. //Schizophrenia, decompensated. Further management per psychiatry //Pulmonary embolism. Continue Xarelto //Chronic recurrent hyponatremia likely secondary to antipsychotics. mild, Na 135 Continue to monitor //Chronic edema Improved with Lasix Norvasc discontinued. Continue Lasix 20 mg daily BMP 01/19 shows creatinine 0.90, potassium 4.4 //Hypertension BP 131/62 Norvasc discontinued due to edema as stated above Continue with Inderal 20 mg by mouth twice a day and lisinopril 10 mg daily //DVT prophylaxis on Xarelto Patient medically stable from a hospitalist standpoint. We'll sign off for now. Please reconsult if needed. Discussed with patient and Dr. Liriano Problem Qualifiers (1) Schizophrenia: Qualified Code: F20.0 - Paranoid schizophrenia Esperanza Saldana Jan 19, 2017 14:45
[2017-01-19 18:25] VITALS: BP 148/70; PULSE 85; RESP 18; TEMP 98.3; O2SAT 98
[2017-01-19] MEDS: AMANTADINE HCL 100 MG CAP PO SCH (20:49)
[2017-01-19] MEDS: OLANZapine ODT 15 MG TAB PO SCH (20:49)
[2017-01-19] MEDS ORDERED: OLANZapine ODT 15 MG TAB PO SCH (21:00)
[2017-01-19] MEDS: PROPRANOLOL HCL 20 MG TAB PO SCH (22:25)
[2017-01-19] MEDS: RIVAROXABAN 20 MG TAB PO SCH (22:25)
[2017-01-20 06:10] VITALS: BP 136/65; PULSE 87; RESP 18; TEMP 98; O2SAT 98
[2017-01-20] MEDS: FUROSEMIDE 20 MG TAB PO SCH (08:53)
[2017-01-20] MEDS: LISINOPRIL 10 MG TAB PO SCH (08:53)
[2017-01-20] MEDS: PROPRANOLOL HCL 20 MG TAB PO SCH ×2 (11:25→20:56)
[2017-01-20] MEDS: POTASSIUM CHLORIDE 8 MEQ CAP PO SCH (11:26)
[2017-01-20 17:54] VITALS: BP 150/70; PULSE 75; RESP 18; TEMP 97.8; O2SAT 98
[2017-01-20] MEDS: RIVAROXABAN 20 MG TAB PO SCH (18:15)
[2017-01-20] MEDS: AMANTADINE HCL 100 MG CAP PO SCH (20:57)
[2017-01-20] MEDS: OLANZapine ODT 15 MG TAB PO SCH (20:57)
[2017-01-20 21:34] VITALS: BP 150/70; PULSE 75; RESP 18; TEMP 97.8; O2SAT 97
[2017-01-21 05:39] VITALS: BP 156/74; PULSE 77; RESP 18; TEMP 97.8; O2SAT 96
[2017-01-21] MEDS: LISINOPRIL 10 MG TAB PO SCH (08:33)
[2017-01-21] MEDS: FUROSEMIDE 20 MG TAB PO SCH (08:34)
[2017-01-21] MEDS: POTASSIUM CHLORIDE 8 MEQ CAP PO SCH (08:34)
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
[2017-01-21] MEDS: RIVAROXABAN 20 MG TAB PO SCH (18:00)
[2017-01-21 18:11] VITALS: BP 166/82; PULSE 90; RESP 18; TEMP 98.2; O2SAT 96
[2017-01-21] MEDS: PROPRANOLOL HCL 20 MG TAB PO SCH (21:27)
[2017-01-21] MEDS: AMANTADINE HCL 100 MG CAP PO SCH (21:27)
[2017-01-21] MEDS: OLANZapine ODT 15 MG TAB PO SCH (21:29)
[2017-01-22 05:55] VITALS: BP 151/72; PULSE 74; RESP 18; TEMP 97.7; O2SAT 98
[2017-01-22] MEDS: POTASSIUM CHLORIDE 8 MEQ CAP PO SCH (09:00)
[2017-01-22] MEDS: FUROSEMIDE 20 MG TAB PO SCH (09:02)
[2017-01-22] MEDS: PROPRANOLOL HCL 20 MG TAB PO SCH ×2 (09:03→20:34)
[2017-01-22] MEDS: LISINOPRIL 10 MG TAB PO SCH (09:03)
--- NOTE | 2017-01-22 15:01 | HHI.PYPN ---
Subjective Remarks Patient was seen and case discussed with nursing. Patient is compliant with medications and behaving well on the unit. During the interview he does not have any outbursts, displays of anger or threats. Continues to be perseverant on going home. Continues to deny psychotic symptoms. Easily engaged Objective Alert: Yes [place]: Person, Place Mood: Calm Affect: Restricted Memory Intact: Comment (fair) Hallucinations: Other (int stim) Delusions: Yes Delusion Type: Paranoid (none elicited today) Suicidal: Ideation (no SI voiced) Homicidal: Ideation (no HI voiced) Insight/Judgment Poor Vitals/IOs Vital Signs Date Time Temp Pulse Resp B/P Pulse Ox O2 Delivery O2 Flow Rate FiO2 01/22/17 05:55 97.7 74 18 151/72 98 Intake and Output 01/21/17 01/21/17 01/22/17 08:00 16:00 00:00 Intake Total 500 ml Balance 500 ml Assessment & Plan Problem List: (1) Schizophrenia ICD Code: F20.9 Assessment & Plan Continue current treatment plan Justification for Cont. Inpt. Patient will decompensate in a less restrictive setting Request HC Surrog/Guard Advoc?: Yes Problem Qualifiers (1) Schizophrenia: Qualified Code: F20.0 - Paranoid schizophrenia Agustin Mckeon DO Jan 22, 2017 15:01
[2017-01-22 15:22] VITALS: BP 162/77; PULSE 77; RESP 18; TEMP 96.9; O2SAT 98
[2017-01-22] MEDS: RIVAROXABAN 20 MG TAB PO SCH (18:21)
[2017-01-22] MEDS: OLANZapine ODT 15 MG TAB PO SCH (20:34)
[2017-01-22] MEDS: diphenhydrAMINE HCL 50 MG CAP PO PRN (20:34)
[2017-01-22] MEDS: AMANTADINE HCL 100 MG CAP PO SCH (20:37)
[2017-01-23 06:15] VITALS: BP 129/59; PULSE 66; RESP 19; TEMP 97.1; O2SAT 100
[2017-01-23] MEDS: LISINOPRIL 10 MG TAB PO SCH (09:00)
[2017-01-23] MEDS: FUROSEMIDE 20 MG TAB PO SCH (09:00)
[2017-01-23] MEDS: PROPRANOLOL HCL 20 MG TAB PO SCH ×2 (09:00→20:43)
[2017-01-23] MEDS: POTASSIUM CHLORIDE 8 MEQ CAP PO SCH (09:00)
--- NOTE | 2017-01-23 11:29 | HHI.PYPN ---
Subjective Remarks Patient seen and examined with counselor and nurse. Chart reviewed. Case discussed with nursing staff. On my examination today, patient is initially calm and pleasant. He remains somewhat religiously preoccupied. However, he grows much more agitated when I try to discuss discharge disposition with him, and particular returning to his assisted living. He yells "I'm not handicapped or mentally ill! You're going against the 8th commandment! Please and thank you! Please and thank you! Please and thank you! Please and thank you!" He insists that he must not be discharged [facility] but must instead be allowed to go to his house in [place]. Denies side effects from medications. No physical complaints today. Review of Systems ROS Limitations: Psychotic, Poor Historian Except as stated in HPI: all other systems reviewed are Neg Objective Alert: Yes [place]: Person, Place Mood: Angry, Anxious Affect: Restricted Memory Intact: Comment (not formally assessed) Hallucinations: Other (remains somewhat internally preoccupied) Delusions: Yes Delusion Type: Paranoid Suicidal: Ideation (no SI) Homicidal: Ideation (no HI) Insight/Judgment Poor Remarks No abnormal motor movements noted. Thought process perseverative on discharge. Grooming and hygiene fair. Labs Labs reviewed. No new labs. Vitals/IOs Vital Signs Date Time Temp Pulse Resp B/P Pulse Ox O2 Delivery O2 Flow Rate FiO2 01/23/17 06:15 97.1 66 19 129/59 100 Assessment & Plan Problem List: (1) Schizophrenia ICD Code: F20.9 Assessment & Plan Titrate Zyprexa to 5/20 mg to target psychosis. Continue to monitor on the high acuity inpatient psychiatric unit. Continue other medications and care as ordered. Justification for Cont. Inpt. Impairment in reality construction. Medication changes and process. High risk for decompensation in a restrictive environment. Discharge Planning Possibly return to facility, although this is looking less likely. States psychiatric hospitalization represents an alternative plan. Request HC Surrog/Guard Advoc?: Yes Problem Qualifiers (1) Schizophrenia: Qualified Code: F20.0 - Paranoid schizophrenia Marques Fregoso MD Jan 23, 2017 11:29
[2017-01-23 18:18] VITALS: BP 144/78; PULSE 72; RESP 18; TEMP 99.3; O2SAT 95
[2017-01-23] MEDS: RIVAROXABAN 20 MG TAB PO SCH (18:39)
[2017-01-23] MEDS: AMANTADINE HCL 100 MG CAP PO SCH (20:43)
[2017-01-23] MEDS: OLANZapine ODT 15 MG TAB PO SCH (20:43)
[2017-01-23] MEDS: diphenhydrAMINE HCL 50 MG CAP PO PRN (20:44)
[2017-01-24 06:00] VITALS: BP 130/91; PULSE 78; RESP 17; TEMP 97; O2SAT 96
[2017-01-24] MEDS: FUROSEMIDE 20 MG TAB PO SCH (08:22)
[2017-01-24] MEDS: PROPRANOLOL HCL 20 MG TAB PO SCH ×2 (08:22→20:11)
[2017-01-24] MEDS: POTASSIUM CHLORIDE 8 MEQ CAP PO SCH (08:22)
[2017-01-24] MEDS: OLANZapine ODT 5 MG TAB PO SCH (08:22)
[2017-01-24] MEDS: LISINOPRIL 10 MG TAB PO SCH (08:22)
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
[2017-01-24 17:42] VITALS: BP 128/86; PULSE 68; RESP 18; TEMP 98.7; O2SAT 96
[2017-01-24] MEDS: RIVAROXABAN 20 MG TAB PO SCH (18:04)
[2017-01-24] MEDS: AMANTADINE HCL 100 MG CAP PO SCH (20:09)
[2017-01-24] MEDS: diphenhydrAMINE HCL 50 MG CAP PO PRN (20:09)
[2017-01-24] MEDS: OLANZapine ODT 15 MG TAB PO SCH (20:10)
[2017-01-25 05:56] VITALS: BP 159/76; PULSE 75; RESP 17; TEMP 97.8; O2SAT 97
[2017-01-25] MEDS: LISINOPRIL 10 MG TAB PO SCH (08:21)
[2017-01-25] MEDS: POTASSIUM CHLORIDE 8 MEQ CAP PO SCH (08:21)
[2017-01-25] MEDS: OLANZapine ODT 5 MG TAB PO SCH (08:21)
[2017-01-25] MEDS: PROPRANOLOL HCL 20 MG TAB PO SCH ×2 (08:21→20:34)
[2017-01-25] MEDS: FUROSEMIDE 20 MG TAB PO SCH (09:00)
--- NOTE | 2017-01-25 12:05 | HHI.PYPN ---
Subjective Remarks Patient seen and examined with counselor and nurse. Chart reviewed. Case discussed with nursing staff. On my examination today, the patient remains delusional. He insists that he has property in [place] to which he can return, saying that "[facility] came from [facility] and paid my property taxes. " Extremely recalcitrant regarding possibility of assisted living placement. Irritable. No evidence side effects from medications. Review of Systems ROS Limitations: Psychotic, Poor Historian Except as stated in HPI: all other systems reviewed are Neg Objective Alert: Yes [place]: Person, Place Mood: Other (easily irritable) Affect: Restricted (dysphoric) Memory Intact: Comment (not formally assessed) Hallucinations: Other (internally stimulated) Delusions: Yes Delusion Type: Paranoid (with taoism overtones) Suicidal: Ideation (no SI) Homicidal: Ideation (no HI) Insight/Judgment Poor Remarks No motor abnormalities noted. Thought process perseverative on discharge. Grooming and hygiene fair. Labs Labs reviewed. Vitals/IOs Vital Signs Date Time Temp Pulse Resp B/P Pulse Ox O2 Delivery O2 Flow Rate FiO2 01/25/17 05:56 97.8 75 17 159/76 97 Assessment & Plan Problem List: (1) Schizophrenia ICD Code: F20.9 Assessment & Plan Ongoing inadequate response to antipsychotic therapy. Titrate Zyprexa to 10/20 mg to target psychosis. Continue other medications as ordered. Continue to monitor on the high acuity unit. Continue other care as ordered. Justification for Cont. Inpt. Impairment in reality construction. High risk for decompensation in a restrictive environment. Discharge Planning [facility] referral Request HC Surrog/Guard Advoc?: Yes Problem Qualifiers (1) Schizophrenia: Qualified Code: F20.0 - Paranoid schizophrenia Marques Fregoso MD Jan 25, 2017 12:05
[2017-01-25] MEDS: RIVAROXABAN 20 MG TAB PO SCH (18:00)
[2017-01-25 18:44] VITALS: BP 155/66; PULSE 76; RESP 18; TEMP 97.4; O2SAT 97
[2017-01-25] MEDS: AMANTADINE HCL 100 MG CAP PO SCH (20:34)
[2017-01-25] MEDS: OLANZapine ODT 15 MG TAB PO SCH (20:34)
[2017-01-26 05:36] VITALS: BP 154/70; PULSE 75; RESP 18; TEMP 97.4; O2SAT 97
[2017-01-26] MEDS: POTASSIUM CHLORIDE 8 MEQ CAP PO SCH (09:00)
[2017-01-26] MEDS: PROPRANOLOL HCL 20 MG TAB PO SCH ×2 (09:06→21:22)
[2017-01-26] MEDS: OLANZapine ODT 10 MG TAB PO SCH (09:07)
[2017-01-26] MEDS: LISINOPRIL 10 MG TAB PO SCH (09:07)
[2017-01-26] MEDS: FUROSEMIDE 20 MG TAB PO SCH (09:07)
--- NOTE | 2017-01-26 11:59 | HHI.PYPN ---
Subjective Remarks Patient seen and examined with counselor. Chart reviewed. Case discussed with nursing staff. On my examination today, the patient persists in his previous delusional material. He remains quite discharge focus. He insists that he cannot return to [facility]. He is somewhat less irritable since we titrated his Zyprexa. He complains of feeling tired but otherwise has no side effects from medications. No physical complaints. Review of Systems ROS Limitations: Psychotic, Poor Historian Except as stated in HPI: all other systems reviewed are Neg Objective Alert: Yes [place]: Person, Place Mood: Other (calmer) Affect: Blunted Memory Intact: Comment (not formally assessed) Hallucinations: Other (remains internally preoccupied) Delusions: Yes Delusion Type: Paranoid Suicidal: Ideation (no SI) Homicidal: Ideation (no HI) Insight/Judgment Poor Remarks No abnormal motor movements noted. Thought process perseverative on delusional material. Labs Labs reviewed. Vitals/IOs Vital Signs Date Time Temp Pulse Resp B/P Pulse Ox O2 Delivery O2 Flow Rate FiO2 01/26/17 05:36 97.4 75 18 154/70 97 Intake and Output 01/25/17 01/25/17 01/26/17 08:00 16:00 00:00 Intake Total 240 ml Balance 240 ml Assessment & Plan Problem List: (1) Schizophrenia ICD Code: F20.9 Assessment & Plan Continue Zyprexa 10/20 mg. Continue other medications as ordered. Check and updated CBC and BMP in the morning. Continue to monitor on the high acuity unit. Continue other medications and care as ordered. Justification for Cont. Inpt. Impairment in reality construction. High risk for decompensation in a restrictive environment. Discharge Planning [facility] psychiatric hospital referral. Request HC Surrog/Guard Advoc?: Yes Problem Qualifiers (1) Schizophrenia: Qualified Code: F20.0 - Paranoid schizophrenia Marques Fregoso MD Jan 26, 2017 11:59
[2017-01-26] MEDS: RIVAROXABAN 20 MG TAB PO SCH (18:30)
[2017-01-26 19:00] VITALS: BP 128/66; PULSE 78; RESP 17; TEMP 98; O2SAT 99
[2017-01-26] MEDS: OLANZapine ODT 15 MG TAB PO SCH (21:00)
[2017-01-26] MEDS: AMANTADINE HCL 100 MG CAP PO SCH (21:22)
[2017-01-27 05:30] VITALS: BP 137/69; PULSE 68; RESP 17; TEMP 98.1; O2SAT 96
[2017-01-27 08:30] LABS: AUTOMATED NEUTROPHIL # 7.1 TH/MM3 (1.8-7.7); BASOPHIL # 0.1 TH/MM3 (0-0.2); BASOPHIL % 0.9 % (0.0-2.0); EOSINOPHIL # 0.2 TH/MM3 (0-0.4); EOSINOPHIL % 1.9 % (0.0-4.0); HEMATOCRIT 40.3 % (39.0-51.0); HEMO FLAGS DIFF FINAL; LYMPH % 20.7 % (9.0-44.0); LYMPHOCYTE # 2.1 TH/MM3 (1.0-4.8); MEAN CELL VOLUME 84.8 FL (80.0-100.0); MEAN CORPUSCULAR HEMOGLOBIN 28.2 PG (27.0-34.0); MEAN CORPUSCULAR HGB CONC 33.3 % (32.0-36.0); MONO % 7.6 % (0.0-8.0); NEUT % 68.9 % (16.0-70.0); PLATELET COUNT 264 TH/MM3 (150-450); RED BLOOD COUNT 4.76 MIL/MM3 (4.50-5.90); RED CELL DISTRIBUTION WIDTH 15.2 % (11.6-17.2); WHITE BLOOD COUNT 10.2 TH/MM3 (4.0-11.0)
[2017-01-27] MEDS: FUROSEMIDE 20 MG TAB PO SCH (08:35)
[2017-01-27] MEDS: OLANZapine ODT 10 MG TAB PO SCH (08:36)
[2017-01-27] MEDS: POTASSIUM CHLORIDE 8 MEQ CAP PO SCH (08:36)
[2017-01-27] MEDS: LISINOPRIL 10 MG TAB PO SCH (08:36)
[2017-01-27] MEDS: PROPRANOLOL HCL 20 MG TAB PO SCH ×2 (08:36→21:18)
[2017-01-27 08:53] LABS: BICARBONATE 25.9 MEQ/L (21.0-32.0); POTASSIUM 4.5 MEQ/L (3.5-5.1)
--- NOTE | 2017-01-27 10:34 | HHI.FPPN ---
Subjective Remarks PT ASKING TO GO HOME IN [place] [facility] RE HIS BEHAVIOURS QUESTIONING HIS LAB RESULTS Objective Vitals Vital Signs Date Time Temp Pulse Resp B/P Pulse Ox O2 Delivery O2 Flow Rate FiO2 01/27/17 05:30 98.1 68 17 137/69 96 01/26/17 19:00 98.0 78 17 128/66 99 Result Diagram: 01/27/17 0813 01/27/17812 Objective Remarks GENERAL: SKIN: Warm and dry. HEAD: Normocephalic. EYES: No scleral icterus. No injection or drainage. NECK: Supple, trachea midline. No JVD or lymphadenopathy. CARDIOVASCULAR: Regular rate and rhythm without murmurs, gallops, or rubs. RESPIRATORY: Breath sounds equal bilaterally. No accessory muscle use. GASTROINTESTINAL: Abdomen soft, non-tender, nondistended. MUSCULOSKELETAL: No cyanosis, or edema. BACK: Nontender without obvious deformity. No CVA tenderness. Medications and IVs Current Medications Medications (Trade) Dose Ordered Sig/Josephine Route Start Time Stop Time Status Last Admin (Atarax) 50 mg Q6H PRN PO 12/20/16 02:00 01/08/17 20:45 (Benadryl) 50 mg Q6H PRN PO 12/20/16 02:00 01/24/17 20:09 (Tylenol) 650 mg Q4H PRN PO 12/20/16 02:00 (Milk Of Magnesia Liq) 30 ml DAILY PRN PO 12/20/16 02:00 01/16/17 15:38 (Mag-Al Plus Susp Liq) 30 ml Q6H PRN PO 12/20/16 02:00 (Xarelto) 20 mg DAILY@18 PO 12/20/16 18:00 01/26/17 18:30 (Symmetrel) 100 mg HS PO 12/20/16 21:00 01/26/17 21:22 (Norvasc) 10 mg DAILY PO 12/20/16 09:00 Hold 01/14/17 08:11 (Catapres) 0.1 mg Q6H PRN PO 12/20/16 10:45 01/08/17 18:07 (Prinivil) 10 mg DAILY PO 12/26/16 09:00 01/27/17 08:36 (Pill Splitter) 1 ea UNSCH PRN OTHER 01/02/17 15:30 (Nitrostat Sl) 0.4 mg Q5M PRN SL 01/09/17 17:00 (Dulcolax Ec) 10 mg DAILY PRN PO 01/13/17 11:15 (ZyPREXA INJ) 10 mg HS PRN IM 01/17/17 17:00 (Inderal) 20 mg BID PO 01/19/17 21:00 01/27/17 08:36 (Lasix) 20 mg DAILY PO 01/19/17 14:45 01/27/17 08:35 (KCl) 8 meq DAILY PO 01/20/17 09:00 01/27/17 08:36 (ZyPREXA ZYDIS ODT) 20 mg Taper HS PO 01/19/17 21:00 01/31/17 20:59 01/26/17 21:00 (ZyPREXA ZYDIS ODT) 10 mg DAILY PO 01/26/17 09:00 01/27/17 08:36 A/P Assessment and Plan 1. Altered mental status. 2. Schizophrenia, decompensated. 3. Pulmonary embolism. 4. Hyponatremia . 5. Chronic edema. 6. Hyperlipidemia. 7. Hypertension. 8. Cervicalgia without radiculopathy PLAN- INCREASE LISINOPRIL BMP ONE WEEK HOLD NORVASC ON LASIX Propranolol 20 mg b.i.d. Xarelto 20 mg daily. psych meds per Psychiatry. clonidine p.r.n. for systolic greater than 170. Monitor hyponatremia, however, he has had recurrent hyponatremia due to antipsychotics. Joey Mary MD Jan 27, 2017 10:34
--- NOTE | 2017-01-27 11:30 | HHI.PYPN ---
Subjective Remarks Patient seen and examined with nurse and counselor. Chart reviewed. Case discussed with nursing staff who reports patient has been reading the Bible and talking to himself. On my examination today, the patient perseverates on being discharged to the home that he believes he has an [place]. He remains paranoid and delusional. He is muttering to himself. He continues to complain of some tiredness from medications but otherwise voices no side effects. No physical complaints otherwise. Review of Systems ROS Limitations: Psychotic, Poor Historian Except as stated in HPI: all other systems reviewed are Neg Objective Alert: Yes [place]: Person, Place Mood: Anxious Affect: Restricted Memory Intact: Comment (not formally assessed) Hallucinations: Other (internally stimulated) Delusions: Yes Delusion Type: Paranoid (ongoing) Suicidal: Ideation (no SI) Homicidal: Ideation (no HI) Insight/Judgment Poor Remarks No motor abnormalities noted. Thought process perseverative on discharge. Grooming and hygiene fair. Labs Test 01/27/17 08:13 White Blood Count 10.2 TH/MM3 Red Blood Count 4.76 MIL/MM3 Hemoglobin 13.4 GM/DL Hematocrit 40.3 % Mean Corpuscular Volume 84.8 FL Mean Corpuscular Hemoglobin 28.2 PG Mean Corpuscular Hemoglobin 33.3 % Concent Red Cell Distribution Width 15.2 % Platelet Count 264 TH/MM3 Mean Platelet Volume 8.8 FL Neutrophils (%) (Auto) 68.9 % Lymphocytes (%) (Auto) 20.7 % Monocytes (%) (Auto) 7.6 % Eosinophils (%) (Auto) 1.9 % Basophils (%) (Auto) 0.9 % Neutrophils # (Auto) 7.1 TH/MM3 Lymphocytes # (Auto) 2.1 TH/MM3 Monocytes # (Auto) 0.8 TH/MM3 Eosinophils # (Auto) 0.2 TH/MM3 Basophils # (Auto) 0.1 TH/MM3 CBC Comment DIFF FINAL Differential Comment Sodium Level 132 MEQ/L Potassium Level 4.5 MEQ/L Chloride Level 98 MEQ/L Carbon Dioxide Level 25.9 MEQ/L Anion Gap 8 MEQ/L Blood Urea Nitrogen 19 MG/DL Creatinine 0.92 MG/DL Estimat Glomerular Filtration 84 ML/MIN Rate Random Glucose 157 MG/DL Calcium Level 9.0 MG/DL Labs reviewed. CBC is unremarkable. CMP reveals mild hyponatremia, but this is within the historical range for this patient. Vitals/IOs Vital Signs Date Time Temp Pulse Resp B/P Pulse Ox O2 Delivery O2 Flow Rate FiO2 01/27/17 05:30 98.1 68 17 137/69 96 Assessment & Plan Problem List: (1) Schizophrenia ICD Code: F20.9 Assessment & Plan Antipsychotics tried so far this admission include Geodon, Seroquel and Zyprexa all at robust doses with minimal benefit with regards to patient's psychosis. Will switch out of class to typical antipsychotic. Patient has had significant EPS from higher potency antipsychotics in the past and so we'll start prophylactic Cogentin. D/c Zyprexa. Loxapine 5mg BID with plans to titrate through the weekend along with Cogentin 1mg BID. Continue to monitor on the high acuity unit. Continue other medications and care as ordered. Justification for Cont. Inpt. Impairment in reality construction. Medication changes and process. High risk for decompensation in a less restrictive environment. [facility] Planning [facility] Placement if patient can be psychiatrically stabilized. Request HC Surrog/Guard Advoc?: Yes Problem Qualifiers (1) Schizophrenia: Qualified Code: F20.0 - Paranoid schizophrenia Marques Fregoso MD Jan 27, 2017 11:30
[2017-01-27 17:42] VITALS: BP 160/69; PULSE 73; RESP 16; TEMP 97.5; O2SAT 93
[2017-01-27] MEDS: RIVAROXABAN 20 MG TAB PO SCH (18:00)
[2017-01-27] MEDS: BENZTROPINE MESYLATE 1 MG TAB PO SCH (21:18)
[2017-01-27] MEDS: AMANTADINE HCL 100 MG CAP PO SCH (21:18)
[2017-01-27] MEDS: LOXAPINE 5 MG CAP PO SCH (21:20)
[2017-01-28] MEDS: ALUMINUM/MAGNESIUM/SIMETH 30 ML CUP PO PRN ×2 (00:20→21:29)
[2017-01-28 05:24] VITALS: BP 141/67; PULSE 69; RESP 18; TEMP 97.5; O2SAT 95
[2017-01-28] MEDS: PROPRANOLOL HCL 20 MG TAB PO SCH ×2 (08:20→21:29)
[2017-01-28] MEDS: BENZTROPINE MESYLATE 1 MG TAB PO SCH ×2 (08:21→21:29)
[2017-01-28] MEDS: LOXAPINE 5 MG CAP PO SCH ×2 (08:21→21:29)
[2017-01-28] MEDS: POTASSIUM CHLORIDE 8 MEQ CAP PO SCH (08:21)
[2017-01-28] MEDS: LISINOPRIL 20 MG TAB PO SCH (08:21)
[2017-01-28] MEDS: FUROSEMIDE 20 MG TAB PO SCH (08:21)
--- NOTE | 2017-01-28 14:06 | HHI.PYPN ---
Subjective Remarks Pt seen and discussed with staff. Pt has been compliant with medications. staffing branch manager report decreased delusional fixations. He has been calm and cooperative without agitation. He states that he overhead and RN tell "[employer] [place]" to pack me up and get me out of here" Objective Alert: Yes [place]: Person, Place Mood: Calm Affect: Restricted Memory Intact: Comment (not formally assessed) Hallucinations: Other (internally stimulated) Delusions: Yes Delusion Type: Paranoid (ongoing) Suicidal: Ideation (no SI) Homicidal: Ideation (no HI) Insight/Judgment poor Vitals/IOs Vital Signs Date Time Temp Pulse Resp B/P Pulse Ox O2 Delivery O2 Flow Rate FiO2 01/28/17 05:24 97.5 69 18 141/67 95 Assessment & Plan Problem List: (1) Schizophrenia ICD Code: F20.9 Assessment & Plan Continue current tx plan. Estimated LOS: days Justification for Cont. Inpt. impairments in reality construction. Request HC Surrog/Guard Advoc?: Yes Problem Qualifiers (1) Schizophrenia: Qualified Code: F20.0 - Paranoid schizophrenia Vandana Macdonald MD Jan 28, 2017 14:06
[2017-01-28] MEDS: RIVAROXABAN 20 MG TAB PO SCH (17:45)
[2017-01-28 18:21] VITALS: BP 112/56; PULSE 70; RESP 18; TEMP 98.5; O2SAT 97
[2017-01-28] MEDS: AMANTADINE HCL 100 MG CAP PO SCH (21:29)
[2017-01-29 05:36] VITALS: BP 167/70; PULSE 74; RESP 18; TEMP 98.1; O2SAT 97
[2017-01-29] MEDS: POTASSIUM CHLORIDE 8 MEQ CAP PO SCH (09:00)
[2017-01-29] MEDS: FUROSEMIDE 20 MG TAB PO SCH (09:00)
[2017-01-29] MEDS: LOXAPINE 5 MG CAP PO SCH ×2 (09:37→20:34)
[2017-01-29] MEDS: BENZTROPINE MESYLATE 1 MG TAB PO SCH ×2 (09:37→20:34)
[2017-01-29] MEDS: LISINOPRIL 20 MG TAB PO SCH (09:37)
[2017-01-29] MEDS: PROPRANOLOL HCL 20 MG TAB PO SCH ×2 (09:37→20:34)
--- NOTE | 2017-01-29 17:47 | HHI.PYPN ---
Subjective Remarks Pt seen and discussed with staff. He has been preoccupied with hinduism delusions today. No medication side effects. No agitation or aggression. NO SI/ HI Objective Alert: Yes [place]: Person, Place Mood: Calm Affect: Restricted Memory Intact: Comment (not formally assessed) Hallucinations: Other (internally stimulated) Delusions: Yes Delusion Type: Paranoid (ongoing) Suicidal: Ideation (no SI) Homicidal: Ideation (no HI) Insight/Judgment limited Vitals/IOs Vital Signs Date Time Temp Pulse Resp B/P Pulse Ox O2 Delivery O2 Flow Rate FiO2 01/29/17 05:36 98.1 74 18 167/70 97 Assessment & Plan Problem List: (1) Schizophrenia ICD Code: F20.9 Assessment & Plan Continue current tx plan. Estimated LOS: days Justification for Cont. Inpt. risk of decompensation Request HC Surrog/Guard Advoc?: Yes Problem Qualifiers (1) Schizophrenia: Qualified Code: F20.0 - Paranoid schizophrenia Vandana Macdonald MD Jan 29, 2017 17:47
[2017-01-29 17:56] VITALS: BP 132/71; PULSE 67; RESP 18; TEMP 98.8; O2SAT 98
[2017-01-29] MEDS: RIVAROXABAN 20 MG TAB PO SCH (18:00)
[2017-01-29] MEDS: AMANTADINE HCL 100 MG CAP PO SCH (20:34)
[2017-01-30 06:02] VITALS: BP 138/75; PULSE 71; RESP 18; TEMP 97.8; O2SAT 95
[2017-01-30] MEDS: LISINOPRIL 20 MG TAB PO SCH (08:47)
[2017-01-30] MEDS: FUROSEMIDE 20 MG TAB PO SCH (08:47)
[2017-01-30] MEDS: POTASSIUM CHLORIDE 8 MEQ CAP PO SCH (08:48)
[2017-01-30] MEDS: PROPRANOLOL HCL 20 MG TAB PO SCH ×2 (08:49→20:28)
[2017-01-30] MEDS: BENZTROPINE MESYLATE 1 MG TAB PO SCH ×2 (08:49→20:28)
[2017-01-30] MEDS: LOXAPINE 5 MG CAP PO SCH ×3 (09:00→18:15)
--- NOTE | 2017-01-30 10:20 | HHI.PYPN ---
Subjective Remarks Patient seen and examined with counselor. Chart reviewed. Case discussed with nursing staff. Per nursing staff, the loxapine is only provided as capsules and so cannot be administered as 7.5 mg twice daily. On my examination today, the patient is somewhat calmer but remains delusional on the same themes as previously. He remains extremely resistant to assisted living placement. He denies side effects from medications. Review of Systems ROS Limitations: Poor Historian Except as stated in HPI: all other systems reviewed are Neg Objective Alert: Yes [place]: Person, Place Mood: Calm Affect: Flat Memory Intact: Comment (not formally assessed) Hallucinations: Other (remains internally preoccupied) Delusions: Yes Delusion Type: Paranoid (delusions of family, uatsdin delusions) Suicidal: Ideation (no SI) Homicidal: Ideation (no HI) Insight/Judgment Poor Remarks Mild hand tremor, no significant cogwheeling or other signs of EPS. No other motoric abnormalities noted. Thought process remains perseverative on delusional themes. Labs Labs reviewed. Some interval worsening of patient's hyponatremia. Vitals/IOs Vital Signs Date Time Temp Pulse Resp B/P Pulse Ox O2 Delivery O2 Flow Rate FiO2 01/30/17 06:02 97.8 71 18 138/75 95 Assessment & Plan Problem List: (1) Schizophrenia ICD Code: F20.9 Assessment & Plan Patient is calm but core delusional material remains unchanged and represents an ongoing significant barrier to discharge. Adjust loxapine dosing to 5 mg 3 times daily. Titrate Cogentin to 1.5 mg twice daily. Check a BMP in the morning to follow-up sodium level. Continue to monitor on the high acuity inpatient psychiatric unit. Continue other medications and care as ordered. Justification for Cont. Inpt. Impairment in reality construction. Medication changes. High risk for decompensation in a less restrictive environment. [facility]charge Planning [facility] versus back to assisted living facility, although the latter seems less likely at this time. Request HC Surrog/Guard Advoc?: Yes Problem Qualifiers (1) Schizophrenia: Qualified Code: F20.0 - Paranoid schizophrenia Marques Fregoso MD January 30, 2017 10:20
--- NOTE | 2017-01-30 12:17 | HHI.PYPN ---
Subjective Remarks This is the psychiatric progress note for January 20, 2017. Remains psychotic with paranoid delusions and loose associations. Does not wish to have conversation with this physician of any substance. Review of Systems ROS Limitations: Clinical Condition Objective Alert: Yes [place]: Person, Place Mood: Calm Affect: Restricted Memory Intact: Comment (not formally assessed) Hallucinations: Other (internally stimulated) Delusions: Yes Delusion Type: Paranoid (ongoing) Suicidal: Ideation (no SI) Homicidal: Ideation (no HI) Insight/Judgment Impaired Vitals/IOs Vital Signs Date Time Temp Pulse Resp B/P Pulse Ox O2 Delivery O2 Flow Rate FiO2 01/30/17 06:02 97.8 71 18 138/75 95 Assessment & Plan Problem List: (1) Schizophrenia ICD Code: F20.9 Assessment & Plan Estimated LOS: 7 days patient needs more time on current medicines. Justification for Cont. Inpt. Patient likely to decompensate at lower level of care. Request HC Surrog/Guard Advoc?: Yes Problem Qualifiers (1) Schizophrenia: Qualified Code: F20.0 - Paranoid schizophrenia Joey Reis MD January 30, 2017 12:17
[2017-01-30 17:18] VITALS: BP 145/72; PULSE 69; RESP 18; TEMP 97.4; O2SAT 96
[2017-01-30] MEDS: RIVAROXABAN 20 MG TAB PO SCH (18:15)
[2017-01-30] MEDS: AMANTADINE HCL 100 MG CAP PO SCH (20:28)
[2017-01-30] MEDS: hydrOXYzine HCL 50 MG TAB PO PRN (22:27)
[2017-01-30] MEDS: diphenhydrAMINE HCL 50 MG CAP PO PRN (22:27)
[2017-01-31 06:05] VITALS: BP 162/74; PULSE 66; RESP 20; TEMP 97.9; O2SAT 93
[2017-01-31 07:50] LABS: BICARBONATE 25.2 MEQ/L (21.0-32.0); POTASSIUM 4.4 MEQ/L (3.5-5.1)
[2017-01-31] MEDS: POTASSIUM CHLORIDE 8 MEQ CAP PO SCH (09:00)
[2017-01-31] MEDS: LISINOPRIL 20 MG TAB PO SCH (09:18)
[2017-01-31] MEDS: PROPRANOLOL HCL 20 MG TAB PO SCH ×2 (09:18→20:37)
[2017-01-31] MEDS: BENZTROPINE MESYLATE 1 MG TAB PO SCH ×2 (09:18→20:38)
[2017-01-31] MEDS: hydrOXYzine HCL 50 MG TAB PO PRN (09:19)
[2017-01-31] MEDS: FUROSEMIDE 20 MG TAB PO SCH (09:19)
[2017-01-31] MEDS: LOXAPINE 5 MG CAP PO SCH ×2 (09:19→20:38)
--- NOTE | 2017-01-31 09:36 | HHI.PYPN ---
Subjective Remarks Patient seen and examined with counselor and nurse. Chart reviewed. Case discussed with counselor, nurse and recreation therapist in treatment team. Per nursing staff, the patient continues to self dialogue. He is also noted to be somewhat sexually and religiously preoccupied. Recreation therapist notes that the patient is not participating in groups. On my examination today, the patient remains delusional on previous themes. He remains extremely resistant to assisted living placement and says that I am "going against the eighth commandment" by suggesting it to him. Denies side effects from medications besides some mild tiredness. No other physical complaints. Review of Systems ROS Limitations: Psychotic, Poor Historian Except as stated in HPI: all other systems reviewed are Neg Objective Alert: Yes [place]: Person, Place Mood: Other (initially calm but easily irritable) Affect: Restricted Memory Intact: Comment (not formally assessed) Hallucinations: Other (internally stimulated) Delusions: Yes Delusion Type: Paranoid (ongoing delusions regarding family and latter day delusions) Suicidal: Ideation (no SI) Homicidal: Ideation (no HI) Insight/Judgment Poor Remarks Very mild resting hand tremor. No other motoric abnormalities noted. Thought process remains perseverative on delusional themes. Grooming and hygiene remains fair. Labs Labs reviewed. Mild but stable hyponatremia. Test 01/31/17 06:40 Sodium Level 133 MEQ/L Potassium Level 4.4 MEQ/L Chloride Level 101 MEQ/L Carbon Dioxide Level 25.2 MEQ/L Anion Gap 7 MEQ/L Blood Urea Nitrogen 15 MG/DL Creatinine 0.86 MG/DL Estimat Glomerular Filtration 91 ML/MIN Rate Random Glucose 100 MG/DL Calcium Level 8.9 MG/DL Vitals/IOs Vital Signs Date Time Temp Pulse Resp B/P Pulse Ox O2 Delivery O2 Flow Rate FiO2 01/31/17 06:05 97.9 66 20 162/74 93 Assessment & Plan Problem List: (1) Schizophrenia ICD Code: F20.9 Assessment & Plan Continue to titrate loxapine to target psychosis. Loxapine 10 mg twice daily starting this evening. Continue Cogentin for side effects management. Continue to monitor on the high acuity unit. Continue other medications and care as ordered. Justification for Cont. Inpt. Impairment in reality construction. Medication changes in process. High risk for decompensation in a restrictive environment. Discharge Planning Counselor informs me that the patient is #15 on the [facility] wait list. Laundry Bag Punch Operator from patient's assisted living facility, Ankur, is going to come out to see the patient to try to see if he can convince the patient to return to his existing assisted-living facility. Request HC Surrog/Guard Advoc?: Yes Problem Qualifiers (1) Schizophrenia: Qualified Code: F20.0 - Paranoid schizophrenia Marques Fregoso MD January 31, 2017 09:36
--- NOTE | 2017-01-31 10:48 | HHI.FPPN ---
Subjective Remarks BEHAVIOURS SEEM UNDER CONTROL INCR BP'S, SOME LOW BP TOO LESS EDEMA C/O GOUT TO R ANKLE WITH ERYTHEMA D/W RN Objective Vitals Vital Signs Date Time Temp Pulse Resp B/P Pulse Ox O2 Delivery O2 Flow Rate FiO2 01/31/17 06:05 97.9 66 20 162/74 93 01/30/17 17:18 97.4 69 18 145/72 96 Result Diagram: 01/27/17 0813 01/31/17 0640 Objective Remarks GENERAL: SKIN: Warm and dry. HEAD: Normocephalic. EYES: No scleral icterus. No injection or drainage. NECK: Supple, trachea midline. No JVD or lymphadenopathy. CARDIOVASCULAR: Regular rate and rhythm without murmurs, gallops, or rubs. RESPIRATORY: Breath sounds equal bilaterally. No accessory muscle use. GASTROINTESTINAL: Abdomen soft, non-tender, nondistended. MUSCULOSKELETAL: No cyanosis, or edema. BACK: Nontender without obvious deformity. No CVA tenderness. Medications and IVs Current Medications Medications (Trade) Dose Ordered Sig/Josephine Route Start Time Stop Time Status Last Admin (Atarax) 50 mg Q6H PRN PO 12/20/16 02:00 01/31/17 09:19 (Benadryl) 50 mg Q6H PRN PO 12/20/16 02:00 01/30/17 22:27 (Tylenol) 650 mg Q4H PRN PO 12/20/16 02:00 (Milk Of Magnesia Liq) 30 ml DAILY PRN PO 12/20/16 02:00 01/16/17 15:38 (Mag-Al Plus Susp Liq) 30 ml Q6H PRN PO 12/20/16 02:00 01/28/17 21:29 (Xarelto) 20 mg DAILY@18 PO 12/20/16 18:00 01/30/17 18:15 (Symmetrel) 100 mg HS PO 12/20/16 21:00 01/30/17 20:28 (Norvasc) 10 mg DAILY PO 12/20/16 09:00 Hold 01/14/17 08:11 (Catapres) 0.1 mg Q6H PRN PO 12/20/16 10:45 01/08/17 18:07 (Pill Splitter) 1 ea UNSCH PRN OTHER 01/02/17 15:30 (Nitrostat Sl) 0.4 mg Q5M PRN SL 01/09/17 17:00 (Dulcolax Ec) 10 mg DAILY PRN PO 01/13/17 11:15 (Inderal) 20 mg BID PO 01/19/17 21:00 01/31/17 09:18 (Lasix) 20 mg DAILY PO 01/19/17 14:45 01/31/17 09:19 (KCl) 8 meq DAILY PO 01/20/17 09:00 01/31/17 09:00 (Prinivil) 20 mg DAILY PO 01/28/17 09:00 01/31/17 09:18 (Cogentin) 1.5 mg Q12HR PO 01/30/17 21:00 01/31/17 09:18 (Loxitane) 5 mg TID PO 01/30/17 13:00 01/31/17 09:19 A/P Assessment and Plan 1. Altered mental status. 2. Schizophrenia, decompensated. 3. Pulmonary embolism. 4. Hyponatremia . 5. Chronic edema. 6. Hyperlipidemia. 7. Hypertension. 8. Cervicalgia without radiculopathy 9. Gout, R leg. PLAN- CONTINUE NORVASC, BP VARIABLE AND LIKELY ELEVATED DUE TO AGITATION. MONITOR BP' S. ON LASIX Propranolol 20 mg b.i.d. Xarelto 20 mg daily. psych meds per Psychiatry. clonidine p.r.n. for systolic greater than 170. Monitor hyponatremia, however, he has had recurrent hyponatremia due to antipsychotics. Add motrin prn gout. May need allopurinol if recurrent flares. Joey Mary MD January 31, 2017 10:48
[2017-01-31 18:15] VITALS: BP 156/74; PULSE 81; RESP 19; TEMP 98.1; O2SAT 96
[2017-01-31] MEDS: RIVAROXABAN 20 MG TAB PO SCH (19:00)
[2017-01-31] MEDS: AMANTADINE HCL 100 MG CAP PO SCH (20:38)
[2017-02-01 06:10] VITALS: BP 142/67; PULSE 68; RESP 18; TEMP 98.8; O2SAT 96
[2017-02-01] MEDS: POTASSIUM CHLORIDE 8 MEQ CAP PO SCH (09:00)
[2017-02-01] MEDS: LOXAPINE 5 MG CAP PO SCH ×3 (09:44→20:37)
[2017-02-01] MEDS: IBUPROFEN 400 MG TAB PO PRN (09:44)
[2017-02-01] MEDS: hydrOXYzine HCL 50 MG TAB PO PRN (09:45)
[2017-02-01] MEDS: BENZTROPINE MESYLATE 1 MG TAB PO SCH ×2 (09:45→20:37)
[2017-02-01] MEDS: PROPRANOLOL HCL 20 MG TAB PO SCH ×2 (09:46→20:39)
[2017-02-01] MEDS: FUROSEMIDE 20 MG TAB PO SCH (09:47)
[2017-02-01] MEDS: LISINOPRIL 20 MG TAB PO SCH (09:47)
--- NOTE | 2017-02-01 11:40 | HHI.PYPN ---
Subjective Remarks Patient seen and examined with counselor. Chart reviewed. Case discussed with RN, who reports patient is unchanged today. Counselor notes that Ankur from [facility] came to see pt yesterday and in counselor's presence emphasized that patient still had a place at [facility] and should, in Ankur's opinion, return to structured living. Despite this, patient insists that Ankur told him that all of his belongings had been moved out of [facility] and that he should be discharged back to the home he believes he has in [place]. He becomes agitated when challenged on this point. He denies side effects from medications. He says " my shakes are gone with mass and holy communion." Review of Systems ROS Limitations: Psychotic, Poor Historian Except as stated in HPI: all other systems reviewed are Neg Objective Alert: Yes [place]: Person, Place Mood: Other (irritable) Affect: Restricted Memory Intact: Comment (not formally assessed) Hallucinations: Other (pt remains int stim) Delusions: Yes Delusion Type: Paranoid Suicidal: Ideation (no SI) Homicidal: Ideation (no HI) Insight/Judgment Poor Remarks No motor abnormalities noted. TP perseverative on delusional themes. Grooming/ hygiene fair. Labs Labs reviewed. Vitals/IOs Vital Signs Date Time Temp Pulse Resp B/P Pulse Ox O2 Delivery O2 Flow Rate FiO2 02/01/17 06:10 98.8 68 18 142/67 96 Assessment & Plan Problem List: (1) Schizophrenia ICD Code: F20.9 Assessment & Plan Titrate loxapine to 10/5/10mg to target psychosis, although it seems that early response to this med has been limited. Continue to monitor on high acuity inpatient unit. Continue other medications and care as ordered. Justification for Cont. Inpt. Impairment in reality construction. Med changes in process. High risk for decompensation in a less restrictive environment. Discharge Planning State referral. Hopes of dispo back to [facility] seem unfortunately to be diminishing. Request HC Surrog/Guard Advoc?: Yes Problem Qualifiers (1) Schizophrenia: Qualified Code: F20.0 - Paranoid schizophrenia Marques Fregoso MD February 01, 2017 11:40
[2017-02-01] MEDS: RIVAROXABAN 20 MG TAB PO SCH (17:47)
[2017-02-01 18:12] VITALS: BP 141/69; PULSE 66; RESP 18; TEMP 98.3; O2SAT 97
[2017-02-01] MEDS: ALUMINUM/MAGNESIUM/SIMETH 30 ML CUP PO PRN (19:21)
[2017-02-01] MEDS: AMANTADINE HCL 100 MG CAP PO SCH (20:38)
[2017-02-01] MEDS: diphenhydrAMINE HCL 50 MG CAP PO PRN (21:38)
[2017-02-02] MEDS: BENZTROPINE MESYLATE 1 MG TAB PO SCH ×2 (09:16→21:00)
[2017-02-02] MEDS: FUROSEMIDE 20 MG TAB PO SCH (09:16)
[2017-02-02] MEDS: LISINOPRIL 20 MG TAB PO SCH (09:16)
[2017-02-02] MEDS: PROPRANOLOL HCL 20 MG TAB PO SCH ×2 (09:17→21:00)
[2017-02-02] MEDS: POTASSIUM CHLORIDE 8 MEQ CAP PO SCH (09:17)
[2017-02-02] MEDS: LOXAPINE 5 MG CAP PO SCH ×3 (09:18→21:00)
--- NOTE | 2017-02-02 11:13 | HHI.PYPN ---
Subjective Remarks Patient seen and examined with counselor. Chart reviewed. Case discussed with nursing staff. No behavioral issues noted. On my examination today, the patient is sitting calmly in the day area. He continues to verbalize psychotic material as before. Remains discharge focused but refuses to go to [facility]. No side effects from meds besides some mild tiredness. Review of Systems ROS Limitations: Psychotic, Poor Historian Except as stated in HPI: all other systems reviewed are Neg Objective Alert: Yes [place]: Person, Place Mood: Calm Affect: Blunted Memory Intact: Comment (not formally assessed) Hallucinations: Other (internally preoccupied) Delusions: Yes Delusion Type: Paranoid Suicidal: Ideation (no suicidal ideation) Homicidal: Ideation (no homicidal ideation) Insight/Judgment Poor Remarks No motor abnormalities noted. Thought process perseverative on discharge. Labs Test 02/02/17 07:10 Sodium Level 132 MEQ/L Labs reviewed. Sodium level oscillating in the low 130s, although overall trend this admission is very slowly downward. Vitals/IOs Vital Signs Date Time Temp Pulse Resp B/P Pulse Ox O2 Delivery O2 Flow Rate FiO2 02/01/17 18:12 98.3 66 18 141/69 97 Assessment & Plan Problem List: (1) Schizophrenia ICD Code: F20.9 Assessment & Plan Continue loxapine as ordered with plans for further titration to try to reduce psychotic symptoms. Continue every other day sodium checks. May need to consult hospitalist or institute fluid restriction if sodium level dips below 130. Continue to monitor on the high acuity unit. Continue other medications and care as ordered. Justification for Cont. Inpt. Impairment in reality construction. High risk for decompensation in a restrictive environment. Discharge Planning [facility] psychiatric hospitalization versus placement Request HC Surrog/Guard Advoc?: Yes Problem Qualifiers (1) Schizophrenia: Qualified Code: F20.0 - Paranoid schizophrenia Marques Fregoso MD February 02, 2017 11:13
[2017-02-02 16:00] VITALS: BP 155/72; PULSE 86; RESP 18; TEMP 98.1; O2SAT 96
[2017-02-02] MEDS: RIVAROXABAN 20 MG TAB PO SCH (18:23)
[2017-02-02] MEDS: AMANTADINE HCL 100 MG CAP PO SCH (21:00)
[2017-02-03 06:34] VITALS: BP 151/73; PULSE 67; RESP 18; TEMP 97.9; O2SAT 96
[2017-02-03] MEDS: PROPRANOLOL HCL 20 MG TAB PO SCH ×2 (08:47→21:08)
[2017-02-03] MEDS: LOXAPINE 5 MG CAP PO SCH ×3 (08:47→21:08)
[2017-02-03] MEDS: BENZTROPINE MESYLATE 1 MG TAB PO SCH ×2 (08:47→21:08)
[2017-02-03] MEDS: LISINOPRIL 20 MG TAB PO SCH (08:47)
[2017-02-03] MEDS: POTASSIUM CHLORIDE 8 MEQ CAP PO SCH (08:48)
[2017-02-03] MEDS: FUROSEMIDE 20 MG TAB PO SCH (08:48)
--- NOTE | 2017-02-03 09:05 | HHI.PYPN ---
Subjective Remarks Patient seen and examined with counselor. Chart reviewed. Case discussed with nursing staff reports patient has been no behavioral problem. On my examination today, the patient insists that I ordered his discharge for today. When I tell him that I have not he says that I'm violating the eighth commandment. He says that he doesn't want to live in an assisted living facility "I'm in my 60s, not my 70s or 80s." He denies side effects from medications. No physical complaints. Review of Systems ROS Limitations: Psychotic, Poor Historian Except as stated in HPI: all other systems reviewed are Neg Objective Alert: Yes [employer]: Person, Place Mood: Agitated, Anxious Affect: Restricted (dysphoric) Memory Intact: Comment (not formally assessed) Hallucinations: Other (remains internally stimulated) Delusions: Yes Delusion Type: Paranoid Suicidal: Ideation (no SI) Homicidal: Ideation (no HI) Insight/Judgment Poor Remarks No motor abnormalities noted Labs Labs reviewed. Vitals/IOs Vital Signs Date Time Temp Pulse Resp B/P Pulse Ox O2 Delivery O2 Flow Rate FiO2 02/03/17 06:34 97.9 67 18 151/73 96 Assessment & Plan Problem List: (1) Schizophrenia ICD Code: F20.9 Assessment & Plan Ongoing psychotic symptoms, seemingly unchanged with loxapine. I will try to titrate loxapine to 10 mg 3 times a day and monitor her over the weekend. If there is still no benefit, we may need to once again consider altering therapy to try to bring his psychotic symptoms under better control. Continue to monitor on the high acuity inpatient psychiatric unit in the meantime. Continue other medications and care as ordered. Justification for Cont. Inpt. Impairment in reality construction. Medication changes in process. High risk for decompensation in a restrictive environment. Discharge Planning [facility] psychiatric hospital referral. Patient could return to the facility, but he refuses to do so. Request HC Surrog/Guard Advoc?: Yes Problem Qualifiers (1) Schizophrenia: Qualified Code: F20.0 - Paranoid schizophrenia Marques Fregoso MD February 03, 2017 09:05
[2017-02-03 18:03] VITALS: BP 128/61; PULSE 71; RESP 18; TEMP 97.8; O2SAT 97
[2017-02-03] MEDS: RIVAROXABAN 20 MG TAB PO SCH (21:08)
[2017-02-03] MEDS: AMANTADINE HCL 100 MG CAP PO SCH (21:08)
[2017-02-04 05:59] VITALS: BP 150/86; PULSE 70; RESP 19; TEMP 98.4; O2SAT 97
[2017-02-04] MEDS: BENZTROPINE MESYLATE 1 MG TAB PO SCH ×2 (08:43→21:46)
[2017-02-04] MEDS: PROPRANOLOL HCL 20 MG TAB PO SCH ×2 (08:43→21:49)
[2017-02-04] MEDS: LISINOPRIL 20 MG TAB PO SCH (08:43)
[2017-02-04] MEDS: FUROSEMIDE 20 MG TAB PO SCH (08:44)
[2017-02-04] MEDS: POTASSIUM CHLORIDE 8 MEQ CAP PO SCH (08:44)
[2017-02-04] MEDS: LOXAPINE 5 MG CAP PO SCH ×3 (08:44→21:44)
--- NOTE | 2017-02-04 13:54 | HHI.PYPN ---
Subjective Remarks Patient was seen and case discussed with nursing. Patient is less perseverative on discharge today. He is calm and cooperative and does not have any outbursts during the interview. He is compliant with his medications. Continues to have sodium level drawn daily. Denies auditory visual hallucinations. Objective Alert: Yes [place]: Person, Place Mood: Anxious Affect: Blunted Memory Intact: Comment (not formally assessed) Hallucinations: Other (remains internally stimulated) Delusions: Yes Delusion Type: Paranoid Suicidal: Ideation (no SI) Homicidal: Ideation (no HI) Insight/Judgment Poor Labs Test 02/04/17 08:27 Sodium Level 131 MEQ/L Vitals/IOs Vital Signs Date Time Temp Pulse Resp B/P Pulse Ox O2 Delivery O2 Flow Rate FiO2 02/04/17 05:59 98.4 70 19 150/86 97 Assessment & Plan Problem List: (1) Schizophrenia ICD Code: F20.9 Assessment & Plan Continue current treatment plan Justification for Cont. Inpt. Patient will decompensate in a less restrictive setting Request HC Surrog/Guard Advoc?: Yes Problem Qualifiers (1) Schizophrenia: Qualified Code: F20.0 - Paranoid schizophrenia Agustin Mckeon DO February 04, 2017 13:54
[2017-02-04 14:53] VITALS: BP 137/76; PULSE 66; RESP 18; TEMP 98.2; O2SAT 97
[2017-02-04] MEDS: RIVAROXABAN 20 MG TAB PO SCH (17:38)
[2017-02-04] MEDS: diphenhydrAMINE HCL 50 MG CAP PO PRN (17:47)
[2017-02-04] MEDS: AMANTADINE HCL 100 MG CAP PO SCH (21:44)
[2017-02-05 05:47] VITALS: BP 136/57; PULSE 67; RESP 16; TEMP 98; O2SAT 94
[2017-02-05] MEDS: LOXAPINE 5 MG CAP PO SCH ×3 (08:08→20:06)
[2017-02-05] MEDS: BENZTROPINE MESYLATE 1 MG TAB PO SCH ×2 (08:08→20:06)
[2017-02-05] MEDS: LISINOPRIL 20 MG TAB PO SCH (08:08)
[2017-02-05] MEDS: POTASSIUM CHLORIDE 8 MEQ CAP PO SCH (08:08)
[2017-02-05] MEDS: FUROSEMIDE 20 MG TAB PO SCH (08:08)
[2017-02-05] MEDS: PROPRANOLOL HCL 20 MG TAB PO SCH ×2 (09:00→20:06)
--- NOTE | 2017-02-05 12:24 | HHI.PYPN ---
Subjective Remarks Patient was seen and case discussed with nursing. Patient is pleasant and cooperative with exam. Compliant with medications. Behaving well on the unit. Objective Alert: Yes [place]: Person, Place Mood: Anxious Affect: Blunted Memory Intact: Comment (not formally assessed) Hallucinations: Other (remains internally stimulated) Delusions: Yes Delusion Type: Paranoid Suicidal: Ideation (no SI) Homicidal: Ideation (no HI) Insight/Judgment Poor Vitals/IOs Vital Signs Date Time Temp Pulse Resp B/P Pulse Ox O2 Delivery O2 Flow Rate FiO2 02/05/17 05:47 98.0 67 16 136/57 94 Assessment & Plan Problem List: (1) Schizophrenia ICD Code: F20.9 Assessment & Plan Continue current treatment plan Justification for Cont. Inpt. Patient will decompensate in a less restrictive setting Request HC Surrog/Guard Advoc?: Yes Problem Qualifiers (1) Schizophrenia: Qualified Code: F20.0 - Paranoid schizophrenia Agustin Mckeon DO February 05, 2017 12:24
[2017-02-05] MEDS: RIVAROXABAN 20 MG TAB PO SCH (17:45)
[2017-02-05 18:10] VITALS: BP 114/61; PULSE 68; RESP 18; TEMP 98.3; O2SAT 97
[2017-02-05] MEDS: AMANTADINE HCL 100 MG CAP PO SCH (20:06)
[2017-02-06 05:53] VITALS: BP 126/66; PULSE 68; RESP 16; TEMP 97.2; O2SAT 95
[2017-02-06] MEDS: POTASSIUM CHLORIDE 8 MEQ CAP PO SCH (09:00)
[2017-02-06] MEDS: LOXAPINE 5 MG CAP PO SCH ×3 (09:00→21:00)
[2017-02-06] MEDS: FUROSEMIDE 20 MG TAB PO SCH (09:57)
[2017-02-06] MEDS: BENZTROPINE MESYLATE 1 MG TAB PO SCH ×2 (09:57→21:47)
[2017-02-06] MEDS: LISINOPRIL 20 MG TAB PO SCH (09:57)
[2017-02-06] MEDS: PROPRANOLOL HCL 20 MG TAB PO SCH ×2 (09:57→21:47)
--- NOTE | 2017-02-06 10:13 | HHI.PYPN ---
Subjective Remarks Patient seen and examined with counselor and nurse. Chart reviewed. Case discussed with nursing staff who reports patient remains delusional but is medication compliant. On my examination today, patient says "when you have disability, you have to push yourself." He feels like the medications "me me feel stronger when I'm masturbating." Remains delusional on paranoid and voodoo themes. 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 No other motoric abnormalities noted. Thought process linear within delusional system. Labs Labs reviewed. Vitals/IOs Vital Signs Date Time Temp Pulse Resp B/P Pulse Ox O2 Delivery O2 Flow Rate FiO2 02/06/17 05:53 97.2 68 16 126/66 95 Intake and Output 02/05/17 02/05/17 02/06/17 08:00 16:00 00:00 Intake Total 550 ml Balance 550 ml Assessment & Plan Problem List: (1) Schizophrenia ICD Code: F20.9 Assessment & Plan Continue loxapine as ordered for now. Patient has tried 3 atypicals and a typical without much success this admission. I would like to try clozapine. I will request the records from [facility] to see if there were in fact problems that would prevent a rechallenge with clozapine. Continue to monitor on the high acuity unit. Continue other medications and care as ordered. Justification for Cont. Inpt. Impairment in reality construction. High risk for decompensation in a restrictive environment. Discharge Planning [facility] psychiatric hospital referral. Request HC Surrog/Guard Advoc?: Yes Problem Qualifiers (1) Schizophrenia: Qualified Code: F20.0 - Paranoid schizophrenia Marques Fregoso MD February 06, 2017 10:13
[2017-02-06] MEDS: RIVAROXABAN 20 MG TAB PO SCH (17:15)
[2017-02-06 17:36] VITALS: BP 145/78; PULSE 69; RESP 18; TEMP 98.6; O2SAT 96
[2017-02-06] MEDS: AMANTADINE HCL 100 MG CAP PO SCH (21:47)
[2017-02-07 05:49] VITALS: BP 163/79; PULSE 70; RESP 18; TEMP 97.9; O2SAT 96
[2017-02-07] MEDS: LOXAPINE 5 MG CAP PO SCH ×3 (09:00→21:00)
[2017-02-07] MEDS: POTASSIUM CHLORIDE 8 MEQ CAP PO SCH (09:00)
[2017-02-07] MEDS: FUROSEMIDE 20 MG TAB PO SCH (09:11)
[2017-02-07] MEDS: LISINOPRIL 20 MG TAB PO SCH (09:11)
[2017-02-07] MEDS: PROPRANOLOL HCL 20 MG TAB PO SCH ×2 (09:11→21:07)
[2017-02-07] MEDS: BENZTROPINE MESYLATE 1 MG TAB PO SCH ×2 (09:12→21:08)
--- NOTE | 2017-02-07 09:48 | HHI.PYPN ---
Subjective Remarks Patient seen and examined with counselor and nurse. Chart reviewed. Case discussed with nursing staff, counselor and recreation therapist in treatment team. Nurse notes that the patient is unchanged. Recreation therapist notes that the patient used to participate in groups but now does not do so as often stating "I've made too many projects." Reviewing the paper chart, I note that we did receive word back from [facility], but it appears that they have destroyed the medical records associated with the clozapine trial. Today, patient remains delusional as before. He insists that he must be discharged to return to one of his many houses in [place]. He insists that his belongings have been removed from his [facility] (they have not). He accuses us of violating the 8th commandment. Denies side effects from medications besides some mild tiredness. Review of Systems ROS Limitations: Psychotic, Poor Historian Except as stated in HPI: all other systems reviewed are Neg Objective Alert: Yes [place]: Person, Place Mood: Calm (somewhat irritable) Affect: Blunted Memory Intact: Comment (not formally assessed) Hallucinations: Other (Remains int stim) Delusions: Yes Delusion Type: Paranoid (ongoing, with caodaism overtones) Suicidal: Ideation (no SI) Homicidal: Ideation (no HI) Insight/Judgment Poor Remarks No abnormal motor movements noted besides mild resting tremor. Labs Test 02/07/17 06:40 Sodium Level 134 MEQ/L Labs reviewed. Vitals/IOs Vital Signs Date Time Temp Pulse Resp B/P Pulse Ox O2 Delivery O2 Flow Rate FiO2 02/07/17 05:49 97.9 70 18 163/79 96 Assessment & Plan Problem List: (1) Schizophrenia ICD Code: F20.9 Assessment & Plan Continue loxapine as ordered. I have asked counselor to reach out to [facility] to see if they have any records regarding clozapine trial since records from [facility] have been destroyed. Continue to monitor on the high acuity unit in the meantime. Continue other medications and care as ordered. Justification for Cont. Inpt. Impairment in reality construction. High risk for decompensation in a restrictive environment. Discharge Planning [facility] referral Request HC Surrog/Guard Advoc?: Yes Problem Qualifiers (1) Schizophrenia: Qualified Code: F20.0 - Paranoid schizophrenia Marques Fregoso MD February 07, 2017 09:48
[2017-02-07] MEDS: RIVAROXABAN 20 MG TAB PO SCH (18:00)
[2017-02-07 18:30] VITALS: BP 117/69; PULSE 69; RESP 18; TEMP 98.3; O2SAT 96
[2017-02-07] MEDS: AMANTADINE HCL 100 MG CAP PO SCH (21:07)
[2017-02-07] MEDS: ALUMINUM/MAGNESIUM/SIMETH 30 ML CUP PO PRN (21:13)
[2017-02-08 05:58] VITALS: BP 147/71; PULSE 18; RESP 18; TEMP 98.2; O2SAT 97
[2017-02-08] MEDS: POTASSIUM CHLORIDE 8 MEQ CAP PO SCH (08:27)
[2017-02-08] MEDS: BENZTROPINE MESYLATE 1 MG TAB PO SCH ×2 (08:27→21:16)
[2017-02-08] MEDS: PROPRANOLOL HCL 20 MG TAB PO SCH ×2 (08:27→21:16)
[2017-02-08] MEDS: FUROSEMIDE 20 MG TAB PO SCH (08:28)
[2017-02-08] MEDS: LISINOPRIL 20 MG TAB PO SCH (08:28)
[2017-02-08] MEDS: LOXAPINE 5 MG CAP PO SCH ×3 (08:28→21:16)
--- NOTE | 2017-02-08 13:59 | HHI.PYPN ---
Subjective Remarks Patient seen and examined. Chart reviewed. Case discussed with nursing staff. On my examination today, the patient remains paranoid and delusional. Themes unchanged. No side effects from medications. No physical complaints besides he feels like sometimes when he coughs "my ribs could be caving in. It hasn't happened yet, but it could happen." Review of Systems ROS Limitations: Psychotic, Poor Historian Except as stated in HPI: all other systems reviewed are Neg Objective Alert: Yes [place]: Person, Place Mood: Calm Affect: Blunted Memory Intact: Comment (not formally assessed) Hallucinations: Other (Int stim) Delusions: Yes Delusion Type: Paranoid Suicidal: Ideation (no SI) Homicidal: Ideation (no HI) Insight/Judgment Poor Remarks No motor abnormalities noted. Labs Labs reviewed. Vitals/IOs Vital Signs Date Time Temp Pulse Resp B/P Pulse Ox O2 Delivery O2 Flow Rate FiO2 02/08/17 05:58 98.2 18 18 147/71 97 Assessment & Plan Problem List: (1) Schizophrenia ICD Code: F20.9 Assessment & Plan Continue current psychiatric medications as ordered. Continue other medications and care as ordered. Justification for Cont. Inpt. Impairment in reality construction. High risk for decompensation in a restrictive environment. Discharge Planning [facility]. Patient has refused to return to his existing placement. Request HC Surrog/Guard Advoc?: Yes Problem Qualifiers (1) Schizophrenia: Qualified Code: F20.0 - Paranoid schizophrenia Marques Fregoso MD February 08, 2017 13:59
[2017-02-08 17:17] VITALS: BP 126/65; PULSE 67; RESP 18; TEMP 98.3; O2SAT 97
[2017-02-08] MEDS: RIVAROXABAN 20 MG TAB PO SCH (17:50)
[2017-02-08] MEDS: AMANTADINE HCL 100 MG CAP PO SCH (21:16)
[2017-02-08] MEDS: ALUMINUM/MAGNESIUM/SIMETH 30 ML CUP PO PRN (21:38)
[2017-02-09 06:09] VITALS: BP 157/72; PULSE 72; RESP 18; TEMP 97.5; O2SAT 94
[2017-02-09] MEDS: POTASSIUM CHLORIDE 8 MEQ CAP PO SCH (09:00)
[2017-02-09] MEDS: PROPRANOLOL HCL 20 MG TAB PO SCH ×2 (10:13→21:06)
[2017-02-09] MEDS: FUROSEMIDE 20 MG TAB PO SCH (10:13)
[2017-02-09] MEDS: BENZTROPINE MESYLATE 1 MG TAB PO SCH ×2 (10:13→21:06)
[2017-02-09] MEDS: LOXAPINE 5 MG CAP PO SCH (10:13)
[2017-02-09] MEDS: LISINOPRIL 20 MG TAB PO SCH (10:13)
--- NOTE | 2017-02-09 10:26 | HHI.PYPN ---
Subjective Remarks Patient seen and examined. Chart reviewed. Case discussed with nursing staff. Patient remains unchanged today. He insists "I'm not mentally ill. You are disobeying the eighth commandment." He says that the nurses told the [employer] techs to pack up his belongings for discharge. We discuss once again that he may go back to his [facility] at any time that he wishes, but he insists that he be discharged to one of his many homes in [place]. No side effects from medications besides mild sedation. Continues to worry that his ribs could cave in if he were to have a cough; he does not have a cough. Review of Systems ROS Limitations: Psychotic, Poor Historian Except as stated in HPI: all other systems reviewed are Neg Objective Alert: Yes [place]: Person, Place Mood: Calm Affect: Blunted (mildly irritable) Memory Intact: Comment (not formally assessed) Hallucinations: Other (Remains internally preoccupied) Delusions: Yes Delusion Type: Paranoid Suicidal: Ideation (no SI) Homicidal: Ideation (no HI) Insight/Judgment Poor Remarks No motor abnormalities noted. Speech rambling. Labs Labs reviewed. Vitals/IOs Vital Signs Date Time Temp Pulse Resp B/P Pulse Ox O2 Delivery O2 Flow Rate FiO2 02/09/17 06:09 97.5 72 18 157/72 94 Assessment & Plan Problem List: (1) Schizophrenia ICD Code: F20.9 Assessment & Plan No discernible benefit from loxapine. We have also tried Geodon, Seroquel and Zyprexa this admission without success. 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 I suspect this belief has a psychotic basis, but unfortunately the relevant records have been destroyed. I will try one more typical, but then I feel we must seriously consider giving clozapine a trial in this patient with severely treatment- resistant psychosis. Discontinue loxapine and start Thorazine 50mg BID. Continue to monitor on high acuity unit. Continue other medications and care as ordered. Justification for Cont. Inpt. Impairment in reality construction. Medication changes in process. High risk for decompensation in a less restrictive level of care. Discharge Planning [facility]. If the patient is able to stabilize adequately, return to [facility] placement might represent an alternative. Request HC Surrog/Guard Advoc?: Yes Problem Qualifiers (1) Schizophrenia: Qualified Code: F20.0 - Paranoid schizophrenia Chaiffetz,Marques B. MD February 09, 2017 10:26
--- NOTE | 2017-02-09 14:04 | HHI.FPPN ---
Subjective Remarks PT CONCERNED WITH BLOOD DRAWS INCR BP'S C/O EDEMA C/O CHEST WALL PAIN WITH COUGHNG C/O COUGH D/W RN Objective Vitals Vital Signs Date Time Temp Pulse Resp B/P Pulse Ox O2 Delivery O2 Flow Rate FiO2 02/09/17 06:09 97.5 72 18 157/72 94 02/08/17 17:17 98.3 67 18 126/65 97 Result Diagram: 02/07/17 0640 Objective Remarks GENERAL: SKIN: Warm and dry. HEAD: Normocephalic. EYES: No scleral icterus. No injection or drainage. NECK: Supple, trachea midline. No JVD or lymphadenopathy. CARDIOVASCULAR: Regular rate and rhythm without murmurs, gallops, or rubs. RESPIRATORY: Breath sounds equal bilaterally. No accessory muscle use. GASTROINTESTINAL: Abdomen soft, non-tender, nondistended. MUSCULOSKELETAL: No cyanosis, or edema. BACK: Nontender without obvious deformity. No CVA tenderness. Medications and IVs Current Medications Medications (Trade) Dose Ordered Sig/Josephine Route Start Time Stop Time Status Last Admin (Atarax) 50 mg Q6H PRN PO 12/20/16 02:00 02/01/17 09:45 (Benadryl) 50 mg Q6H PRN PO 12/20/16 02:00 02/01/17 21:38 (Tylenol) 650 mg Q4H PRN PO 12/20/16 02:00 (Milk Of Magnesia Liq) 30 ml DAILY PRN PO 12/20/16 02:00 01/16/17 15:38 (Mag-Al Plus Susp Liq) 30 ml Q6H PRN PO 12/20/16 02:00 02/08/17 21:38 (Xarelto) 20 mg DAILY@18 PO 12/20/16 18:00 02/08/17 17:50 (Symmetrel) 100 mg HS PO 12/20/16 21:00 02/08/17 21:16 (Norvasc) 10 mg DAILY PO 12/20/16 09:00 Hold 01/14/17 08:11 (Catapres) 0.1 mg Q6H PRN PO 12/20/16 10:45 01/08/17 18:07 (Pill Splitter) 1 ea UNSCH PRN OTHER 01/02/17 15:30 (Nitrostat Sl) 0.4 mg Q5M PRN SL 01/09/17 17:00 (Dulcolax Ec) 10 mg DAILY PRN PO 01/13/17 11:15 (Inderal) 20 mg BID PO 01/19/17 21:00 02/09/17 10:13 (Lasix) 20 mg DAILY PO 01/19/17 14:45 02/09/17 10:13 (KCl) 8 meq DAILY PO 01/20/17 09:00 02/09/17 09:00 (Prinivil) 20 mg DAILY PO 01/28/17 09:00 02/09/17 10:13 (Cogentin) 1.5 mg Q12HR PO 01/30/17 21:00 02/09/17 10:13 (Motrin) 400 mg Q8H PRN PO 01/31/17 11:00 02/01/17 09:44 (Thorazine) 50 mg Q12HR PO 02/09/17 21:00 A/P Assessment and Plan 1. Cough 2. Schizophrenia, decompensated. 3. Pulmonary embolism. 4. Hyponatremia . 5. Chronic edema. 6. Hyperlipidemia. 7. Hypertension. 8. Cervicalgia without radiculopathy 9. Gout, R leg. PLAN- Symptomatic tx for cough/viral syndrome CONTINUE NORVASC, BP VARIABLE AND LIKELY ELEVATED DUE TO AGITATION. MONITOR BP' S. ON LASIX Propranolol 20 mg b.i.d. Xarelto 20 mg daily. psych meds per Psychiatry. clonidine p.r.n. for systolic greater than 170. Monitor hyponatremia, however, he has had recurrent hyponatremia due to antipsychotics. Add motrin prn gout. May need allopurinol if recurrent flares. Joey Mary MD February 09, 2017 14:04
[2017-02-09 16:45] VITALS: BP 132/79; PULSE 75; RESP 18; TEMP 98.2; O2SAT 96
[2017-02-09] MEDS: RIVAROXABAN 20 MG TAB PO SCH (18:00)
[2017-02-09] MEDS: AMANTADINE HCL 100 MG CAP PO SCH (21:06)
[2017-02-10 06:06] VITALS: BP 131/64; PULSE 74; RESP 16; TEMP 98.2; O2SAT 95
[2017-02-10] MEDS: POTASSIUM CHLORIDE 8 MEQ CAP PO SCH (09:00)
[2017-02-10] MEDS: LISINOPRIL 20 MG TAB PO SCH (09:11)
[2017-02-10] MEDS: PROPRANOLOL HCL 20 MG TAB PO SCH ×2 (09:11→20:48)
[2017-02-10] MEDS: FUROSEMIDE 20 MG TAB PO SCH (09:11)
[2017-02-10] MEDS: DEXTROMETHORPHAN SYRUP 7.5MG/5ML UDC PO PRN (09:13)
--- NOTE | 2017-02-10 09:18 | HHI.PYPN ---
Subjective Remarks Patient seen and examined with nurse. Chart reviewed. Case discussed with nursing staff who reports that the patient remains disorganized and somatically preoccupied. Night nurse has noted urinary frequency and patient describes urinary urgency to me today. On my examination today, the patient is calm but remains delusional. He continues to insist that the nurse has ordered the techs to "pack up my stuff" because he is going to be discharged today he believes. He denies side effects from medications and notes "I think the Thorazine shuffle is a myth." Review of Systems ROS Limitations: Psychotic, Poor Historian Except as stated in HPI: all other systems reviewed are Neg Objective Alert: Yes [place]: Person, Place Mood: Calm Affect: Flat Memory Intact: Comment (not formally assessed) Hallucinations: Other (Int stim) Delusions: Yes Delusion Type: Paranoid Suicidal: Ideation (No SI voiced) Homicidal: Ideation (No HI voiced) Insight/Judgment Poor Remarks No motor abnormalities noted. In particular no hand tremor, no dystonia, no dyskinesia. Thought process perseverative on discharge. Grooming and hygiene fair. Labs Labs reviewed. Vitals/IOs Vital Signs Date Time Temp Pulse Resp B/P Pulse Ox O2 Delivery O2 Flow Rate FiO2 02/10/17 06:06 98.2 74 16 131/64 95 Assessment & Plan Problem List: (1) Schizophrenia ICD Code: F20.9 Assessment & Plan Titrate Thorazine to 75mg BID to target psychosis. Continue to monitor on inpatient unit. Check a sodium level in the morning. Check a UA. Continue to monitor on high acuity unit. Continue other medications and care as ordered. Justification for Cont. Inpt. Impairment in reality construction. Medication changes and process. High risk for decompensation in a less restrictive environment. Discharge Planning [facility] psychiatric hospital referral. Request HC Surrog/Guard Advoc?: Yes Problem Qualifiers (1) Schizophrenia: Qualified Code: F20.0 - Paranoid schizophrenia Marques Fregoso MD February 10, 2017 09:18
[2017-02-10] MEDS ORDERED: BENZTROPINE MESYLATE 2 MG/2 ML VIAL IM PRN (09:30)
[2017-02-10 15:45] VITALS: BP 100/57; PULSE 72; RESP 18; TEMP 98.1; O2SAT 96
[2017-02-10] MEDS: RIVAROXABAN 20 MG TAB PO SCH (18:23)
[2017-02-10] MEDS: AMANTADINE HCL 100 MG CAP PO SCH (20:25)
[2017-02-11 06:24] VITALS: BP 131/60; PULSE 80; RESP 17; TEMP 98.8; O2SAT 100
[2017-02-11] MEDS: POTASSIUM CHLORIDE 8 MEQ CAP PO SCH (09:00)
[2017-02-11] MEDS: PROPRANOLOL HCL 20 MG TAB PO SCH ×2 (09:07→20:47)
[2017-02-11] MEDS: FUROSEMIDE 20 MG TAB PO SCH (09:07)
[2017-02-11] MEDS: LISINOPRIL 20 MG TAB PO SCH (09:07)
[2017-02-11 09:13] VITALS: BP 138/71; PULSE 103
[2017-02-11] MEDS: DEXTROMETHORPHAN SYRUP 7.5MG/5ML UDC PO PRN (10:00)
--- NOTE | 2017-02-11 13:46 | HHI.PYPN ---
Subjective Remarks Patient seen and examined with nurse. Chart reviewed. Case discussed with nursing staff. On my examination today, the patient is fairly calm. Irritability significantly decreased. Does complain of some tiredness but otherwise no side effects from medications or physical complaints. Less fixated on returning to delusional material. Review of Systems ROS Limitations: Psychotic, Poor Historian Except as stated in HPI: all other systems reviewed are Neg Objective Alert: Yes [place]: Person, Place Mood: Calm Affect: Flat Memory Intact: Comment (not assessed) Hallucinations: Other (remains somewhat internally preoccupied) Delusions: Yes Delusion Type: Paranoid (perhaps lessening somewhat) Suicidal: Ideation (no SI) Homicidal: Ideation (no HI) Insight/Judgment Poor Remarks No motor abnormalities noted Labs Test 02/11/17 09:20 Sodium Level 130 MEQ/L Labs reviewed. Vitals/IOs Vital Signs Date Time Temp Pulse Resp B/P Pulse Ox O2 Delivery O2 Flow Rate FiO2 02/11/17 09:13 103 138/71 02/11/17 06:24 98.8 17 100 Assessment & Plan Problem List: (1) Schizophrenia ICD Code: F20.9 Assessment & Plan Continue Thorazine at current dose, 75mg BID, to allow patient to acclimate to this with plan for ongoing titration. Continue to monitor on high acuity unit. Continue other medications and care as ordered. Justification for Cont. Inpt. Impairment in reality construction. High risk for decompensation in a less restrictive environment. Discharge Planning [facility] psychiatric hospital referral. Return to assisted living facility represents an alternative, but the patient has been quite resistant to this option up till now. Request HC Surrog/Guard Advoc?: Yes Problem Qualifiers (1) Schizophrenia: Qualified Code: F20.0 - Paranoid schizophrenia Marques Fregoso MD February 11, 2017 13:46
[2017-02-11 16:45] VITALS: BP 113/57; PULSE 69; RESP 18; TEMP 97.7; O2SAT 97
[2017-02-11] MEDS: RIVAROXABAN 20 MG TAB PO SCH (17:30)
[2017-02-11] MEDS: AMANTADINE HCL 100 MG CAP PO SCH (20:47)
[2017-02-12 06:00] VITALS: BP 124/66; PULSE 68; RESP 16; TEMP 98.1
[2017-02-12 07:19] LABS: BLOOD, URINE NEG (NEG); GLUCOSE,URINE NEG (NEG); KETONE, URINE NEG (NEG); NITRITE,URINE NEG (NEG); SQUAMOUS EPITHELIAL CELL URINE <1 /hpf (0-5); URINE COLOR LIGHT-YELLOW (YELLW/STRAW)
[2017-02-12 07:36] LABS: COMMENT (UR) CULT NOT INDICATED; CULTURE IF INDICATED CULT NOT INDICATED
[2017-02-12] MEDS: POTASSIUM CHLORIDE 8 MEQ CAP PO SCH (09:00)
[2017-02-12] MEDS: FUROSEMIDE 20 MG TAB PO SCH (09:08)
[2017-02-12] MEDS: LISINOPRIL 20 MG TAB PO SCH (09:09)
[2017-02-12] MEDS: PROPRANOLOL HCL 20 MG TAB PO SCH ×2 (09:09→21:40)
--- NOTE | 2017-02-12 10:35 | HHI.PYPN ---
Subjective Remarks Patient seen today in [place] with nurse Adela, patient calmer today with me states that her to hallucinations not vague and somewhat intermittent. He is compliant medication. Does denies suicidality. Is irritability and vigilance as also diminished Review of Systems Except as stated in HPI: all other systems reviewed are Neg Objective Alert: Yes [place]: Person, Place Mood: Calm Affect: Flat Memory Intact: Comment (not assessed) Hallucinations: Other (remains somewhat internally preoccupied) Delusions: Yes Delusion Type: Paranoid (perhaps lessening somewhat) Suicidal: Ideation (no SI) Homicidal: Ideation (no HI) Insight/Judgment Poor Labs Test 02/12/17 06:20 Urine Color LIGHT-YELLOW Urine Turbidity CLEAR Urine pH 7.0 Urine Specific [place] 1.009 Urine Protein NEG mg/dL Urine Glucose (UA) NEG mg/dL Urine Ketones NEG mg/dL Urine Occult Blood NEG Urine Nitrite NEG Urine Bilirubin NEG Urine Urobilinogen LESS THAN 2.0 MG/DL Urine Leukocyte Esterase NEG Urine RBC LESS THAN 1 /hpf Urine WBC LESS THAN 1 /hpf Urine Squamous Epithelial <1 /hpf Cells Microscopic Urinalysis Comment CULT NOT INDICATED Vitals/IOs Vital Signs Date Time Temp Pulse Resp B/P Pulse Ox O2 Delivery O2 Flow Rate FiO2 02/12/17 06:00 98.1 68 16 124/66 02/11/17 16:45 97 Assessment & Plan Problem List: (1) Schizophrenia ICD Code: F20.9 Assessment & Plan Estimated LOS: days patient continue psychotic and irritable though the intensity is softening, compliant medications for now continue treatment Justification for Cont. Inpt. At this time patient will decompensate if placed in a lower level of care Discharge Planning To be determined Request HC Surrog/Guard Advoc?: Yes Problem Qualifiers (1) Schizophrenia: Qualified Code: F20.0 - Paranoid schizophrenia Jc Mcnamara MD February 12, 2017 10:35
[2017-02-12] MEDS: RIVAROXABAN 20 MG TAB PO SCH (17:38)
[2017-02-12 18:24] VITALS: BP 130/59; PULSE 70; RESP 18; TEMP 98.1; O2SAT 99
[2017-02-12] MEDS: AMANTADINE HCL 100 MG CAP PO SCH (21:40)
[2017-02-12] MEDS: DEXTROMETHORPHAN SYRUP 7.5MG/5ML UDC PO PRN (22:13)
[2017-02-13 06:15] VITALS: BP 114/57; PULSE 66; RESP 18; TEMP 97.4; O2SAT 96
[2017-02-13] MEDS: POTASSIUM CHLORIDE 8 MEQ CAP PO SCH (09:00)
[2017-02-13] MEDS ORDERED: chlorproMAZINE HCL 25 MG TAB PO SCH (09:30)
[2017-02-13] MEDS: PROPRANOLOL HCL 20 MG TAB PO SCH ×2 (09:57→20:25)
[2017-02-13] MEDS: FUROSEMIDE 20 MG TAB PO SCH (09:57)
[2017-02-13] MEDS: LISINOPRIL 20 MG TAB PO SCH (09:57)
--- NOTE | 2017-02-13 11:29 | HHI.PYPN ---
Subjective Remarks Patient seen in his room with nurse Philip, chart reviewed, patient continues to isolate showing no insight into his disease listing his various prior long- term psychiatric hospitalization state institutionalization, and placements. Now a focus on wanting to get his own apartment. For now will increase scheduled Thorazine 20 mg twice a day. Continue other medication. Review of Systems Except as stated in HPI: all other systems reviewed are Neg Objective Alert: Yes [place]: Person, Place Mood: Calm Affect: Flat Memory Intact: Comment (not assessed) Hallucinations: Other (remains somewhat internally preoccupied) Delusions: Yes Delusion Type: Paranoid (perhaps lessening somewhat) Suicidal: Ideation (no SI) Homicidal: Ideation (no HI) Insight/Judgment Very poor Vitals/IOs Vital Signs Date Time Temp Pulse Resp B/P Pulse Ox O2 Delivery O2 Flow Rate FiO2 02/13/17 06:15 97.4 66 18 114/57 96 Assessment & Plan Problem List: (1) Schizophrenia ICD Code: F20.9 Assessment & Plan Estimated LOS: days patient continue psychotic irritable no insight. Please see med adjustments above Justification for Cont. Inpt. At this time patient will decompensate placed in a lower level of care Discharge Planning To be determined Request HC Surrog/Guard Advoc?: Yes Problem Qualifiers (1) Schizophrenia: Qualified Code: F20.0 - Paranoid schizophrenia Jc Mcnamara MD February 13, 2017 11:29
[2017-02-13] MEDS: DEXTROMETHORPHAN SYRUP 7.5MG/5ML UDC PO PRN ×2 (13:04→21:28)
[2017-02-13] MEDS: RIVAROXABAN 20 MG TAB PO SCH (17:19)
[2017-02-13 18:00] VITALS: BP 119/55; PULSE 72; RESP 18; TEMP 98.5; O2SAT 96
[2017-02-13] MEDS: AMANTADINE HCL 100 MG CAP PO SCH (20:25)
[2017-02-14 06:09] VITALS: BP 137/86; PULSE 75; RESP 18; TEMP 97.6; O2SAT 96
[2017-02-14] MEDS: POTASSIUM CHLORIDE 8 MEQ CAP PO SCH (09:00)
[2017-02-14] MEDS: FUROSEMIDE 20 MG TAB PO SCH (09:32)
[2017-02-14] MEDS: PROPRANOLOL HCL 20 MG TAB PO SCH ×2 (09:32→20:31)
[2017-02-14] MEDS: LISINOPRIL 20 MG TAB PO SCH (09:32)
--- NOTE | 2017-02-14 11:37 | HHI.PYPN ---
Subjective Remarks Patient seen in his room with nurse Katya, patient remains markedly vigilant paranoid and guarded showing no insight into the severity of his disease, compliant medications, still showing marketed resistance to even contemplating state referral or referral to an [facility] for now continue treatment Review of Systems Except as stated in HPI: all other systems reviewed are Neg Objective Alert: Yes [place]: Person, Place Mood: Calm Affect: Flat Memory Intact: Comment (not assessed) Hallucinations: Other (remains somewhat internally preoccupied) Delusions: Yes Delusion Type: Paranoid (perhaps lessening somewhat) Suicidal: Ideation (no SI) Homicidal: Ideation (no HI) Insight/Judgment Very poor Vitals/IOs Vital Signs Date Time Temp Pulse Resp B/P Pulse Ox O2 Delivery O2 Flow Rate FiO2 02/14/17 06:09 97.6 75 18 137/86 96 Assessment & Plan Problem List: (1) Schizophrenia ICD Code: F20.9 Assessment & Plan Estimated LOS: days patient remains quite psychotic vigilant and guarded, compliant medications, tolerating increased dose Thorazine without issue Justification for Cont. Inpt. At this time patient would decompensate if placed in the lower level of care Discharge Planning To be determined Request HC Surrog/Guard Advoc?: Yes Problem Qualifiers (1) Schizophrenia: Qualified Code: F20.0 - Paranoid schizophrenia Jc Mcnamara MD February 14, 2017 11:37
[2017-02-14] MEDS: RIVAROXABAN 20 MG TAB PO SCH (18:32)
[2017-02-14] MEDS: AMANTADINE HCL 100 MG CAP PO SCH (20:31)
[2017-02-14 20:42] VITALS: BP 114/63; PULSE 75; RESP 18; TEMP 97.6; O2SAT 94
[2017-02-14] MEDS: DEXTROMETHORPHAN SYRUP 7.5MG/5ML UDC PO PRN (21:53)
[2017-02-15 06:06] VITALS: BP 113/59; PULSE 65; RESP 18; TEMP 98.1; O2SAT 98
[2017-02-15] MEDS: POTASSIUM CHLORIDE 8 MEQ CAP PO SCH (09:00)
[2017-02-15] MEDS: PROPRANOLOL HCL 20 MG TAB PO SCH ×2 (09:11→20:08)
[2017-02-15] MEDS: FUROSEMIDE 20 MG TAB PO SCH (09:11)
[2017-02-15] MEDS: LISINOPRIL 20 MG TAB PO SCH (09:11)
--- NOTE | 2017-02-15 12:57 | HHI.PYPN ---
Subjective Remarks Patient is seen for psychiatric evaluation today he is found in the recreational area of the unit, he is calm, cooperative, he says that he feels okay, Disorganized, but redirectable. Denies depressive symptoms, denies anxiety, denies perceptual disturbances, he denies suicidal ideation. Patient is oriented 3. Compliant with medications, no agitation or aggressive behavior. Review of Systems Other No somatic complaints Objective Alert: Yes [place]: Person, Place, Date Mood: Calm Affect: Restricted Memory Intact: Comment (not assessed) Hallucinations: Other (remains somewhat internally preoccupied) Delusions: Yes Delusion Type: Paranoid (perhaps lessening somewhat) Suicidal: Ideation (no SI) Homicidal: Ideation (no HI) Insight/Judgment Fair Vitals/IOs Vital Signs Date Time Temp Pulse Resp B/P Pulse Ox O2 Delivery O2 Flow Rate FiO2 02/15/17 06:06 98.1 65 18 113/59 98 Assessment & Plan Problem List: (1) Schizophrenia ICD Code: F20.9 Assessment & Plan Estimated LOS: days Justification for Cont. Inpt. Patient is to continue psychiatric hospitalization for safety and stabilization , he has a high potential to decompensate at a lower level of care Request HC Surrog/Guard Advoc?: Yes Problem Qualifiers (1) Schizophrenia: Qualified Code: F20.0 - Paranoid schizophrenia Ulises Patel MD February 15, 2017 12:57
[2017-02-15] MEDS: RIVAROXABAN 20 MG TAB PO SCH (18:00)
[2017-02-15 18:09] VITALS: BP 124/93; PULSE 67; RESP 18; TEMP 97.3; O2SAT 99
[2017-02-15] MEDS: AMANTADINE HCL 100 MG CAP PO SCH (20:09)
[2017-02-15] MEDS: DEXTROMETHORPHAN SYRUP 7.5MG/5ML UDC PO PRN (21:46)
[2017-02-16 05:40] VITALS: BP 136/64; PULSE 70; RESP 18; TEMP 97.6; O2SAT 95
[2017-02-16] MEDS: LISINOPRIL 20 MG TAB PO SCH (08:47)
[2017-02-16] MEDS: PROPRANOLOL HCL 20 MG TAB PO SCH ×2 (08:47→20:59)
[2017-02-16] MEDS: POTASSIUM CHLORIDE 8 MEQ CAP PO SCH (08:47)
[2017-02-16] MEDS: FUROSEMIDE 20 MG TAB PO SCH (08:47)
[2017-02-16] MEDS: DEXTROMETHORPHAN SYRUP 7.5MG/5ML UDC PO PRN ×2 (09:35→22:25)
--- NOTE | 2017-02-16 14:19 | HHI.FPPN ---
Subjective Remarks VARIABLE BP'S C/O ANKLE AND BACK PAIN HAD SOMATIC C/O NOW UNWILLING TO BE EXAMINED D/W RN Objective Vitals Vital Signs Date Time Temp Pulse Resp B/P Pulse Ox O2 Delivery O2 Flow Rate FiO2 02/16/17 05:40 97.6 70 18 136/64 95 02/15/17 18:09 97.3 67 18 124/93 99 Result Diagram: 02/12/17 0918 Objective Remarks GENERAL: Alert, sitting up, says cintialo but unwilling to be moved to be examined. Appears agitated and labile. SKIN: Warm and dry. HEAD: Normocephalic. EYES: No scleral icterus. No injection or drainage. A/P Assessment and Plan 1. Cough 2. Schizophrenia, decompensated. 3. Pulmonary embolism. 4. Hyponatremia . 5. Chronic edema. 6. Hyperlipidemia. 7. Hypertension. 8. Cervicalgia without radiculopathy 9. Gout, R leg. PLAN- Symptomatic tx for cough/viral syndrome CONTINUE NORVASC, BP VARIABLE AND LIKELY ELEVATED DUE TO AGITATION. MONITOR BP' S. ON LASIX Propranolol 20 mg b.i.d. Xarelto 20 mg daily. psych meds per Psychiatry. clonidine p.r.n. for systolic greater than 170. Monitor hyponatremia, however, he has had recurrent hyponatremia due to antipsychotics. motrin prn gout. May need allopurinol if recurrent flares. Dispo: state psych pending Joey Mary MD February 16, 2017 14:19
[2017-02-16 15:13] VITALS: BP 92/52; PULSE 69; RESP 18; TEMP 98; O2SAT 96
--- NOTE | 2017-02-16 16:02 | HHI.PYPN ---
Subjective Remarks Patient seen in day room with nurse Tiffanie, chart review, patient continues to show no significant insight into his disease remains somewhat angry and paranoid and irritable when talking about his past history and the recommendations for placement Review of Systems Except as stated in HPI: all other systems reviewed are Neg Objective Alert: Yes [place]: Person, Place, Date Mood: Calm Affect: Restricted Memory Intact: Comment (not assessed) Hallucinations: Other (remains somewhat internally preoccupied) Delusions: Yes Delusion Type: Paranoid (perhaps lessening somewhat) Suicidal: Ideation (no SI) Homicidal: Ideation (no HI) Insight/Judgment Very poor Vitals/IOs Vital Signs Date Time Temp Pulse Resp B/P Pulse Ox O2 Delivery O2 Flow Rate FiO2 02/16/17 15:13 98.0 69 18 92/52 96 Assessment & Plan Problem List: (1) Schizophrenia ICD Code: F20.9 Assessment & Plan Estimated LOS: days patient remained psychotic isolating irritable with no insight, compliant medications, for now continue treatment Justification for Cont. Inpt. At this time patient will decompensate if placed a lower level of care Discharge Planning To be determined Request HC Surrog/Guard Advoc?: Yes Problem Qualifiers (1) Schizophrenia: Qualified Code: F20.0 - Paranoid schizophrenia Jc Mcnamara MD February 16, 2017 16:02
[2017-02-16] MEDS: RIVAROXABAN 20 MG TAB PO SCH (18:13)
[2017-02-16] MEDS: AMANTADINE HCL 100 MG CAP PO SCH (20:59)
[2017-02-17 06:25] VITALS: BP 136/76; PULSE 64; RESP 18; TEMP 97.7; O2SAT 97
[2017-02-17] MEDS: LISINOPRIL 20 MG TAB PO SCH (08:56)
[2017-02-17] MEDS: FUROSEMIDE 20 MG TAB PO SCH (08:56)
[2017-02-17] MEDS: PROPRANOLOL HCL 20 MG TAB PO SCH ×2 (08:56→20:50)
[2017-02-17] MEDS: POTASSIUM CHLORIDE 8 MEQ CAP PO SCH (08:56)
[2017-02-17] MEDS: BENZTROPINE MESYLATE 1 MG TAB PO PRN (09:11)
[2017-02-17] MEDS: DEXTROMETHORPHAN SYRUP 7.5MG/5ML UDC PO PRN (09:54)
--- NOTE | 2017-02-17 15:22 | HHI.PYPN ---
Subjective Remarks Patient seen in day room with nurse Tiffanie, patient, pleasant 7 no chart review, patient happy since he just finished with the ice cream social. Is paranoia somewhat softened. There remains vigilant. Compliant medications Review of Systems Except as stated in HPI: all other systems reviewed are Neg Objective Alert: Yes [place]: Person, Place, Date Mood: Calm Affect: Restricted Memory Intact: Comment (not assessed) Hallucinations: Other (remains somewhat internally preoccupied) Delusions: Yes Delusion Type: Paranoid (perhaps lessening somewhat) Suicidal: Ideation (no SI) Homicidal: Ideation (no HI) Insight/Judgment Very poor Vitals/IOs Vital Signs Date Time Temp Pulse Resp B/P Pulse Ox O2 Delivery O2 Flow Rate FiO2 02/17/17 06:25 97.7 64 18 136/76 97 Assessment & Plan Problem List: (1) Schizophrenia ICD Code: F20.9 Assessment & Plan Estimated LOS: days patient is vigilant though somewhat softer today, compliant medications, for now continue treatment Justification for Cont. Inpt. At this time patient will decompensate if placed in a lower level of care Discharge Planning To be determined Request HC Surrog/Guard Advoc?: Yes Problem Qualifiers (1) Schizophrenia: Qualified Code: F20.0 - Paranoid schizophrenia Jc Mcnamara MD February 17, 2017 15:22
[2017-02-17] MEDS: RIVAROXABAN 20 MG TAB PO SCH (17:53)
[2017-02-17 18:17] VITALS: BP 93/52; PULSE 65; RESP 20; TEMP 98.3; O2SAT 93
[2017-02-17] MEDS: AMANTADINE HCL 100 MG CAP PO SCH (20:50)
[2017-02-18 06:13] VITALS: BP 122/59; PULSE 63; RESP 18; TEMP 98.1; O2SAT 97
[2017-02-18] MEDS: POTASSIUM CHLORIDE 8 MEQ CAP PO SCH (08:13)
[2017-02-18] MEDS: FUROSEMIDE 20 MG TAB PO SCH (08:13)
[2017-02-18] MEDS: PROPRANOLOL HCL 20 MG TAB PO SCH ×2 (08:13→20:00)
[2017-02-18] MEDS: LISINOPRIL 20 MG TAB PO SCH (09:00)
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
[2017-02-18] MEDS: RIVAROXABAN 20 MG TAB PO SCH (18:00)
[2017-02-18 18:09] VITALS: BP 127/70; PULSE 68; RESP 18; TEMP 97.6; O2SAT 97
[2017-02-18] MEDS: DEXTROMETHORPHAN SYRUP 7.5MG/5ML UDC PO PRN (20:00)
[2017-02-18] MEDS: AMANTADINE HCL 100 MG CAP PO SCH (20:00)
[2017-02-19 06:24] VITALS: BP 150/67; PULSE 64; RESP 16; TEMP 97.4; O2SAT 98
[2017-02-19] MEDS: FUROSEMIDE 20 MG TAB PO SCH (08:10)
[2017-02-19] MEDS: LISINOPRIL 20 MG TAB PO SCH (08:10)
[2017-02-19] MEDS: PROPRANOLOL HCL 20 MG TAB PO SCH ×2 (08:10→20:21)
[2017-02-19] MEDS: POTASSIUM CHLORIDE 8 MEQ CAP PO SCH (08:11)
[2017-02-19] MEDS: DEXTROMETHORPHAN SYRUP 7.5MG/5ML UDC PO PRN ×2 (11:46→20:21)
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
[2017-02-19] MEDS: RIVAROXABAN 20 MG TAB PO SCH (17:37)
[2017-02-19 20:04] VITALS: BP 124/71; PULSE 88; RESP 17; TEMP 98.4; O2SAT 99
[2017-02-19] MEDS: AMANTADINE HCL 100 MG CAP PO SCH (20:21)
[2017-02-20 06:05] VITALS: BP 122/67; PULSE 72; RESP 16; TEMP 98.1; O2SAT 95
[2017-02-20] MEDS: POTASSIUM CHLORIDE 8 MEQ CAP PO SCH (08:43)
[2017-02-20] MEDS: FUROSEMIDE 20 MG TAB PO SCH (08:44)
[2017-02-20] MEDS: BENZTROPINE MESYLATE 1 MG TAB PO PRN (08:44)
[2017-02-20] MEDS: PROPRANOLOL HCL 20 MG TAB PO SCH ×2 (08:44→20:06)
[2017-02-20] MEDS: LISINOPRIL 20 MG TAB PO SCH (08:44)
[2017-02-20] MEDS: DEXTROMETHORPHAN SYRUP 7.5MG/5ML UDC PO PRN ×2 (08:49→21:41)
--- NOTE | 2017-02-20 17:29 | HHI.PYPN ---
Subjective Remarks Patient seen in day room with nurse Tiffanie, chart reviewed, patient compliant medication. Patient is to focus on this length of stay here and his desire for discharge. Showing no insight into his issues are long-term placement Review of Systems Except as stated in HPI: all other systems reviewed are Neg Objective Alert: Yes [place]: Person, Place Mood: Calm Affect: Restricted Memory Intact: Comment (not assessed) Hallucinations: Other (delusional) Delusions: Yes Delusion Type: Paranoid (religiously preoccupied) Suicidal: Ideation (no SI) Homicidal: Ideation (no HI) Insight/Judgment Very poor Vitals/IOs Vital Signs Date Time Temp Pulse Resp B/P Pulse Ox O2 Delivery O2 Flow Rate FiO2 02/20/17 06:05 98.1 72 16 122/67 95 Assessment & Plan Problem List: (1) Schizophrenia ICD Code: F20.9 Assessment & Plan Estimated LOS: days patient continue psychotic and paranoid, with little insight. For now continue treatment Justification for Cont. Inpt. At this time patient will decompensate if placed in a lower level of care Discharge Planning To be determined Request HC Surrog/Guard Advoc?: Yes Problem Qualifiers (1) Schizophrenia: Qualified Code: F20.0 - Paranoid schizophrenia Jc Mcnamara MD February 20, 2017 17:29
[2017-02-20] MEDS: RIVAROXABAN 20 MG TAB PO SCH (17:49)
[2017-02-20 18:57] VITALS: BP 112/57; PULSE 63; RESP 18; TEMP 98.1; O2SAT 97
[2017-02-20] MEDS: AMANTADINE HCL 100 MG CAP PO SCH (20:06)
[2017-02-20] MEDS: ALUMINUM/MAGNESIUM/SIMETH 30 ML CUP PO PRN (20:09)
[2017-02-21 05:15] VITALS: BP 111/69; PULSE 67; RESP 17; TEMP 97.6; O2SAT 95
[2017-02-21] MEDS: PROPRANOLOL HCL 20 MG TAB PO SCH ×2 (08:54→20:24)
[2017-02-21] MEDS: BENZTROPINE MESYLATE 1 MG TAB PO PRN (08:55)
[2017-02-21] MEDS: FUROSEMIDE 20 MG TAB PO SCH (08:55)
[2017-02-21] MEDS: POTASSIUM CHLORIDE 8 MEQ CAP PO SCH (08:55)
[2017-02-21] MEDS: LISINOPRIL 20 MG TAB PO SCH (08:55)
--- NOTE | 2017-02-21 12:31 | HHI.PYPN ---
Subjective Remarks Patient seen in [place] nurse, Chart Reviewed, She Continues to Show No Insight into His Disease or Behaviors. Continues to Talk about His 66 Day Length of Stay, Other People Being Discharged Leukemia after Him, That He Is Own Apartment to Go Back to. Patient Continues Psychotic Delusional and Paranoid. For Now Continue Treatment will increase Thorazine to 100 mg a.m. 200 mg at bedtime Review of Systems Except as stated in HPI: all other systems reviewed are Neg Objective Alert: Yes [place]: Person, Place Mood: Calm Affect: Restricted Memory Intact: Comment (not assessed) Hallucinations: Other (delusional) Delusions: Yes Delusion Type: Paranoid (religiously preoccupied) Suicidal: Ideation (no SI) Homicidal: Ideation (no HI) Insight/Judgment Very poor Vitals/IOs Vital Signs Date Time Temp Pulse Resp B/P Pulse Ox O2 Delivery O2 Flow Rate FiO2 02/21/17 05:15 97.6 67 17 111/69 95 Assessment & Plan Problem List: (1) Schizophrenia ICD Code: F20.9 Assessment & Plan Estimated LOS: days patient continues paranoid and psychotic, will increase Thorazine to 100 mg a.m. 200 mg at bedtime Justification for Cont. Inpt. At this time patient will decompensate the placed in the lower level of care Discharge Planning To be determined Request HC Surrog/Guard Advoc?: Yes Problem Qualifiers (1) Schizophrenia: Qualified Code: F20.0 - Paranoid schizophrenia Jc Mcnamara MD February 21, 2017 12:31
[2017-02-21] MEDS: RIVAROXABAN 20 MG TAB PO SCH (17:41)
[2017-02-21 18:00] VITALS: BP 124/67; PULSE 63; RESP 18; TEMP 97.7; O2SAT 96
[2017-02-21] MEDS: AMANTADINE HCL 100 MG CAP PO SCH (20:24)
[2017-02-22 06:06] VITALS: BP 101/56; PULSE 55; RESP 18; TEMP 97.4; O2SAT 96
[2017-02-22] MEDS: PROPRANOLOL HCL 20 MG TAB PO SCH ×2 (08:28→21:03)
[2017-02-22] MEDS: FUROSEMIDE 20 MG TAB PO SCH (08:28)
[2017-02-22] MEDS: LISINOPRIL 20 MG TAB PO SCH (08:29)
[2017-02-22] MEDS: POTASSIUM CHLORIDE 8 MEQ CAP PO SCH (08:29)
--- NOTE | 2017-02-22 10:55 | HHI.PYPN ---
Subjective Remarks Patient seen and examined with counselor and nurse. Chart reviewed. Case discussed with RN. Per nursing staff, patient is calmer but remains unchanged in his delusions. For me today, patient does indeed continue to voice delusions of having a house and family in [place]. He continues to believe that all of his belongings have been moved out of his [facility] in anticipation of his move into the house he feels that he owns. He is generally calm but becomes quite agitated when I recommend his return to [facility], shouting "you'll have to dismember me and take me apart piece by piece before I go back to [facility]!" Complains of some fatigue from medications, and I note Thorazine was recently adjusted. No other side effects or physical complaints. Nursing staff does tell me that the patient has been complaining of reflux symptoms. Review of Systems ROS Limitations: Psychotic, Poor Historian Except as stated in HPI: all other systems reviewed are Neg Objective Alert: Yes [place]: Person, Place Mood: Anxious Affect: Restricted Memory Intact: Comment (not formally assessed today) Hallucinations: Other (remains somewhat internally preoccupied) Delusions: Yes Delusion Type: Paranoid (ongoing delusional beliefs as explicated above) Suicidal: Ideation (no SI) Homicidal: Ideation (no HI) Insight/Judgment Poor Remarks No motor abnormalities noted. Patient does appear a little tired but not frankly sedated. Thought process perseverative on delusional material. Grooming and hygiene fair. Labs Labs reviewed. No new labs. Vitals/IOs Vital Signs Date Time Temp Pulse Resp B/P Pulse Ox O2 Delivery O2 Flow Rate FiO2 02/22/17 06:06 97.4 55 18 101/56 96 Assessment & Plan Problem List: (1) Schizophrenia ICD Code: F20.9 Assessment & Plan Inadequate response to current therapy. Thorazine was just titrated yesterday, and patient remains a little fatigued from this dose adjustment and so I will hold off on titrating this agent today but will hope to try to titrate tomorrow. Check a set of updated labs in the morning including a sodium level as the patient has had mild hyponatremia so far this admission, and this is in fact a chronic problem. Add Protonix for complaints of reflux. Continue to monitor on the inpatient unit. Continue other medications and care as ordered. Justification for Cont. Inpt. Impairment in reality construction. High risk for decompensation in a less restrictive environment. Discharge Planning Counselor informs me that [facility] Return to [facility] might represent an alternative, but the patient remained steadfastly opposed to this. Request HC Surrog/Guard Advoc?: Yes Problem Qualifiers (1) Schizophrenia: Qualified Code: F20.0 - Paranoid schizophrenia Marques Fregoso MD February 22, 2017 10:55
[2017-02-22] MEDS: PANTOPRAZOLE SOD 40 MG DELAYED RELEASE TAB PO SCH (11:39)
[2017-02-22 17:19] VITALS: BP 115/59; PULSE 66; RESP 18; TEMP 98.3; O2SAT 96
[2017-02-22] MEDS: RIVAROXABAN 20 MG TAB PO SCH (17:36)
[2017-02-22] MEDS: AMANTADINE HCL 100 MG CAP PO SCH (21:03)
[2017-02-22] MEDS: DEXTROMETHORPHAN SYRUP 7.5MG/5ML UDC PO PRN (21:07)
[2017-02-23 05:24] VITALS: BP 128/97; PULSE 93; RESP 18; TEMP 97.2; O2SAT 98
[2017-02-23 07:31] LABS: AUTOMATED NEUTROPHIL # 4.8 TH/MM3 (1.8-7.7); BASOPHIL # 0.1 TH/MM3 (0-0.2); BASOPHIL % 0.9 % (0.0-2.0); EOSINOPHIL # 0.3 TH/MM3 (0-0.4); EOSINOPHIL % 4.3 % (0.0-4.0); HEMATOCRIT 40.6 % (39.0-51.0); HEMO FLAGS DIFF FINAL; LYMPH % 25.3 % (9.0-44.0); MEAN CELL VOLUME 85.6 FL (80.0-100.0); MEAN CORPUSCULAR HEMOGLOBIN 28.2 PG (27.0-34.0); MEAN CORPUSCULAR HGB CONC 32.9 % (32.0-36.0); MONO % 10.5 % (0.0-8.0); PLATELET COUNT 223 TH/MM3 (150-450); RED BLOOD COUNT 4.74 MIL/MM3 (4.50-5.90); RED CELL DISTRIBUTION WIDTH 15.5 % (11.6-17.2); WHITE BLOOD COUNT 8.1 TH/MM3 (4.0-11.0)
[2017-02-23 07:52] LABS: ANION GAP 5 MEQ/L (5-15); BICARBONATE 28.2 MEQ/L (21.0-32.0); BLOOD UREA NITROGEN 21 MG/DL (7-18); CHLORIDE 103 MEQ/L (98-107); GLOMERULAR FILTRATION RATE 74 ML/MIN (>89); POTASSIUM 4.3 MEQ/L (3.5-5.1); SODIUM (NA) 136 MEQ/L (136-145)
[2017-02-23 07:55] LABS: ALKALINE PHOSPHATASE 110 U/L (45-117); ALT (GPT) 30 U/L (12-78); AST (GOT) 17 U/L (15-37); TOTAL BILIRUBIN ADULT 0.2 MG/DL (0.2-1.0)
[2017-02-23] MEDS: POTASSIUM CHLORIDE 8 MEQ CAP PO SCH (08:32)
[2017-02-23] MEDS: PANTOPRAZOLE SOD 40 MG DELAYED RELEASE TAB PO SCH (08:32)
[2017-02-23] MEDS: LISINOPRIL 20 MG TAB PO SCH (08:32)
[2017-02-23] MEDS: PROPRANOLOL HCL 20 MG TAB PO SCH ×2 (08:32→21:02)
[2017-02-23] MEDS: FUROSEMIDE 20 MG TAB PO SCH (08:32)
--- NOTE | 2017-02-23 13:17 | HHI.PYPN ---
Subjective Remarks Patient seen and examined with counselor and nurse. Chart reviewed. Case discussed with nursing staff who reports that the patient remains more or less unchanged although he is perhaps self-dialoguing a little less today. On my examination today, the patient no longer complains of tiredness from medications. He denies side effects from medications. He seems less vocal regarding his delusional beliefs, although I suspect these persist unabated. He denies physical complaints except for some problems with constipation 2 days. He requests addition of Metamucil. Review of Systems ROS Limitations: Psychotic, Poor Historian Except as stated in HPI: all other systems reviewed are Neg Objective Alert: Yes [place]: Person, Place Mood: Calm Affect: Flat Memory Intact: Comment (not formally assessed today) Hallucinations: Other (int stim, perhaps somewhat less so today) Delusions: Yes Delusion Type: Paranoid Suicidal: Ideation (no SI) Homicidal: Ideation (no HI) Insight/Judgment Poor Remarks No hand tremor. Perhaps some very mild cogwheeling, although this is questionable. No other motor abnormalities noted. Grooming and hygiene fair. Labs Test 02/23/17 06:30 White Blood Count 8.1 TH/MM3 Red Blood Count 4.74 MIL/MM3 Hemoglobin 13.4 GM/DL Hematocrit 40.6 % Mean Corpuscular Volume 85.6 FL Mean Corpuscular Hemoglobin 28.2 PG Mean Corpuscular Hemoglobin 32.9 % Concent Red Cell Distribution Width 15.5 % Platelet Count 223 TH/MM3 Mean Platelet Volume 8.8 FL Neutrophils (%) (Auto) 59.0 % Lymphocytes (%) (Auto) 25.3 % Monocytes (%) (Auto) 10.5 % Eosinophils (%) (Auto) 4.3 % Basophils (%) (Auto) 0.9 % Neutrophils # (Auto) 4.8 TH/MM3 Lymphocytes # (Auto) 2.0 TH/MM3 Monocytes # (Auto) 0.9 TH/MM3 Eosinophils # (Auto) 0.3 TH/MM3 Basophils # (Auto) 0.1 TH/MM3 CBC Comment DIFF FINAL Differential Comment Sodium Level 136 MEQ/L Potassium Level 4.3 MEQ/L Chloride Level 103 MEQ/L Carbon Dioxide Level 28.2 MEQ/L Anion Gap 5 MEQ/L Blood Urea Nitrogen 21 MG/DL Creatinine 1.02 MG/DL Estimat Glomerular Filtration 74 ML/MIN Rate Random Glucose 92 MG/DL Calcium Level 8.7 MG/DL Total Bilirubin 0.2 MG/DL Aspartate Amino Transf 17 U/L (AST/SGOT) Alanine Aminotransferase 30 U/L (ALT/SGPT) Alkaline Phosphatase 110 U/L Total Protein 6.9 GM/DL Albumin 3.2 GM/DL Labs reviewed. CBC is unremarkable. CMP is unremarkable except for mildly decreased GFR. Sodium level is within normal limits. Vitals/IOs Vital Signs Date Time Temp Pulse Resp B/P Pulse Ox O2 Delivery O2 Flow Rate FiO2 02/23/17 05:24 97.2 93 18 128/97 98 Assessment & Plan Problem List: (1) Schizophrenia ICD Code: F20.9 Assessment & Plan Gently titrate Thorazine to 100/250 mg to target psychosis. Continue to monitor on the inpatient unit. Continue other medications and care as ordered. Justification for Cont. Inpt. Medication changes in process. High risk for decompensation in a less restrictive environment. Discharge Planning [facility] psychiatric hospital referral Request HC Surrog/Guard Advoc?: Yes Problem Qualifiers (1) Schizophrenia: Qualified Code: F20.0 - Paranoid schizophrenia Marques Fregoso MD February 23, 2017 13:17
[2017-02-23 15:15] VITALS: BP 135/62; PULSE 56; RESP 18; TEMP 97.4; O2SAT 98
[2017-02-23] MEDS: RIVAROXABAN 20 MG TAB PO SCH (18:02)
[2017-02-23] MEDS: AMANTADINE HCL 100 MG CAP PO SCH (21:02)
[2017-02-23] MEDS: DEXTROMETHORPHAN SYRUP 7.5MG/5ML UDC PO PRN (21:44)
[2017-02-24 06:01] VITALS: BP 121/66; PULSE 60; RESP 18; TEMP 97.2; O2SAT 98
[2017-02-24] MEDS: PROPRANOLOL HCL 20 MG TAB PO SCH ×2 (09:00→20:46)
[2017-02-24] MEDS: LISINOPRIL 20 MG TAB PO SCH (09:00)
[2017-02-24] MEDS: POTASSIUM CHLORIDE 8 MEQ CAP PO SCH (09:00)
[2017-02-24] MEDS: PSYLLIUM FIBER SF/GF 6 GM POWD PKT PO SCH (09:14)
[2017-02-24] MEDS: FUROSEMIDE 20 MG TAB PO SCH (09:14)
[2017-02-24] MEDS: PANTOPRAZOLE SOD 40 MG DELAYED RELEASE TAB PO SCH (09:14)
[2017-02-24] MEDS: IBUPROFEN 400 MG TAB PO PRN ×2 (09:15→20:51)
--- NOTE | 2017-02-24 11:14 | HHI.FPPN ---
Subjective Remarks C/O GOUT PAIN LAB REVIEW BPS VARIABLE D/W RN REPORTING RELIGOUS EXPERIENCES Objective Vitals Vital Signs Date Time Temp Pulse Resp B/P Pulse Ox O2 Delivery O2 Flow Rate FiO2 02/24/17 06:01 97.2 60 18 121/66 98 02/23/17 15:15 97.4 56 18 135/62 98 Result Diagram: 02/23/17 0630 02/23/17 0630 Objective Remarks GENERAL: SKIN: Warm and dry. HEAD: Atraumatic. Normocephalic. EYES: Pupils equal and round. No scleral icterus. No injection or drainage. ENT: No nasal bleeding or discharge. Mucous membranes pink and moist. NECK: Trachea midline. No JVD. CARDIOVASCULAR: Regular rate and rhythm. RESPIRATORY: No accessory muscle use. Clear to auscultation. Breath sounds equal bilaterally. GASTROINTESTINAL: Abdomen soft, non-tender, nondistended. Hepatic and splenic margins not palpable. MUSCULOSKELETAL: Extremities without clubbing, cyanosis, or edema. No obvious deformities. NEUROLOGICAL: Awake and alert. No obvious cranial nerve deficits. Motor grossly within normal limits. Five out of 5 muscle strength in the arms and legs. Normal speech. PSYCHIATRIC: Appropriate mood and affect; insight and judgment normal. Medications and IVs Current Medications Medications (Trade) Dose Ordered Sig/Josephine Route Start Time Stop Time Status Last Admin (Atarax) 50 mg Q6H PRN PO 12/20/16 02:00 02/01/17 09:45 (Benadryl) 50 mg Q6H PRN PO 12/20/16 02:00 02/01/17 21:38 (Tylenol) 650 mg Q4H PRN PO 12/20/16 02:00 (Milk Of Magnesia Liq) 30 ml DAILY PRN PO 12/20/16 02:00 01/16/17 15:38 (Mag-Al Plus Susp Liq) 30 ml Q6H PRN PO 12/20/16 02:00 02/20/17 20:09 (Xarelto) 20 mg DAILY@18 PO 12/20/16 18:00 02/23/17 18:02 (Symmetrel) 100 mg HS PO 12/20/16 21:00 02/23/17 21:02 (Norvasc) 10 mg DAILY PO 12/20/16 09:00 Hold 01/14/17 08:11 (Catapres) 0.1 mg Q6H PRN PO 12/20/16 10:45 01/08/17 18:07 (Pill Splitter) 1 ea UNSCH PRN OTHER 01/02/17 15:30 (Nitrostat Sl) 0.4 mg Q5M PRN SL 01/09/17 17:00 (Dulcolax Ec) 10 mg DAILY PRN PO 01/13/17 11:15 (Inderal) 20 mg BID PO 01/19/17 21:00 02/23/17 21:02 (Lasix) 20 mg DAILY PO 01/19/17 14:45 02/24/17 09:14 (KCl) 8 meq DAILY PO 01/20/17 09:00 02/24/17 09:00 (Prinivil) 20 mg DAILY PO 01/28/17 09:00 02/22/17 08:29 (Motrin) 400 mg Q8H PRN PO 01/31/17 11:00 02/24/17 09:15 (Robitussin La Pediatric Cough Liq) 7.5 mg Q6H PRN PO 02/09/17 15:00 02/23/17 21:44 (Cogentin) 1 mg Q12HR PRN PO 02/10/17 09:30 02/21/17 08:55 (Cogentin Inj) 1 mg Q12HR PRN IM 02/10/17 09:30 (Thorazine) 100 mg DAILY PO 02/22/17 09:00 02/24/17 09:14 (Protonix) 40 mg DAILY PO 02/22/17 10:58 02/24/17 09:14 (Metamucil Smooth Texture Sf/ Gf Pkt) 1 pkt DAILY PO 02/24/17 09:00 02/24/17 09:14 (Thorazine) 250 mg HS PO 02/23/17 21:00 02/23/17 21:03 A/P Assessment and Plan 1. Cough 2. Schizophrenia, decompensated. 3. Pulmonary embolism. 4. Hyponatremia, RESOLVED 5. Chronic edema. 6. Hyperlipidemia. 7. Hypertension. 8. Cervicalgia without radiculopathy 9. Gout, R leg. PLAN- CONTINUE NORVASC, BP VARIABLE AND LIKELY ELEVATED DUE TO AGITATION. MONITOR BP' S. ON LASIX Propranolol 20 mg b.i.d. Xarelto 20 mg daily. psych meds per Psychiatry. clonidine p.r.n. for systolic greater than 170. Monitor hyponatremia, however, he has had recurrent hyponatremia due to antipsychotics. motrin prn gout. May need allopurinol if recurrent flares. Dispo: state psych pending Joey Mary MD February 24, 2017 11:14
--- NOTE | 2017-02-24 12:08 | HHI.PYPN ---
Subjective Remarks Patient seen and examined with counselor and nurse. Chart reviewed. Case discussed with nursing staff. On my examination today, the patient initially seems somewhat calmer. He does not verbalize spontaneously any of his delusional material. However, when asked, he still continues to verbalize delusions as before regarding family, houses, etc. He becomes quite agitated when we discuss return to his [facility], saying that this is the "15th year of his incarceration" including his stays in state hospitals and ALFs. He insists on his discharge today, and I remind him of his right to complete a writ of habeas corpus, should he feel that he is being retained here inappropriately. He gruffly says, "I don't wanna file a writ." No side effects from medications. No physical complaints. Review of Systems ROS Limitations: Psychotic, Poor Historian Except as stated in HPI: all other systems reviewed are Neg Objective Alert: Yes [place]: Person, Place Mood: Other (Easily irritable) Affect: Restricted (dysphoric) Memory Intact: Comment (Not assessed) Hallucinations: Other (Remains internally preoccupied) Delusions: Yes Delusion Type: Paranoid Suicidal: Ideation (No SI) Homicidal: Ideation (No HI) Insight/Judgment Poor Remarks No abnormal motor movements noted. Speech somewhat gruff and clipped as noted above. Grooming and hygiene fair. Labs Labs reviewed. No new labs. Vitals/IOs Vital Signs Date Time Temp Pulse Resp B/P Pulse Ox O2 Delivery O2 Flow Rate FiO2 02/24/17 06:01 97.2 60 18 121/66 98 Assessment & Plan Problem List: (1) Schizophrenia ICD Code: F20.9 Assessment & Plan Titrate Thorazine over the weekend to target psychosis. Continue to monitor on the inpatient unit. Continue other medications and care as ordered. Justification for Cont. Inpt. High risk for decompensation in a less restrictive environment Discharge Planning [facility] psychiatric hospital referral Request HC Surrog/Guard Advoc?: Yes Problem Qualifiers (1) Schizophrenia: Qualified Code: F20.0 - Paranoid schizophrenia Marques Fregoso MD February 24, 2017 12:08
[2017-02-24 15:30] VITALS: BP 122/70; PULSE 72; RESP 18; TEMP 97.9; O2SAT 97
[2017-02-24] MEDS: RIVAROXABAN 20 MG TAB PO SCH (18:28)
[2017-02-24] MEDS: AMANTADINE HCL 100 MG CAP PO SCH (20:46)
[2017-02-25 06:12] VITALS: BP 130/61; PULSE 62; RESP 16; TEMP 97.9; O2SAT 98
[2017-02-25] MEDS: PANTOPRAZOLE SOD 40 MG DELAYED RELEASE TAB PO SCH (09:00)
[2017-02-25] MEDS: POTASSIUM CHLORIDE 8 MEQ CAP PO SCH (09:00)
[2017-02-25] MEDS: PSYLLIUM FIBER SF/GF 6 GM POWD PKT PO SCH (09:00)
[2017-02-25] MEDS: LISINOPRIL 20 MG TAB PO SCH (09:00)
[2017-02-25] MEDS: FUROSEMIDE 20 MG TAB PO SCH (09:00)
[2017-02-25] MEDS: PROPRANOLOL HCL 20 MG TAB PO SCH ×2 (09:00→21:21)
--- NOTE | 2017-02-25 14:25 | HHI.PYPN ---
Subjective Remarks Pt seen and discussed with staff. Staff report that agitation has decreased today and he has exhibited good behavior control. Less fixated on delusions today. No medication side effects. No SI/HI Objective Alert: Yes [place]: Person, Place Mood: Other (Easily irritable) Affect: Restricted (dysphoric) Memory Intact: Comment (Not assessed) Hallucinations: Other (Remains internally preoccupied) Delusions: Yes Delusion Type: Paranoid Suicidal: Ideation (No SI) Homicidal: Ideation (No HI) Insight/Judgment poor Vitals/IOs Vital Signs Date Time Temp Pulse Resp B/P Pulse Ox O2 Delivery O2 Flow Rate FiO2 02/25/17 06:12 97.9 62 16 130/61 98 Assessment & Plan Problem List: (1) Schizophrenia ICD Code: F20.9 Assessment & Plan Continue current tx plan. Estimated LOS: days Justification for Cont. Inpt. risk of decompensation Request HC Surrog/Guard Advoc?: Yes Problem Qualifiers (1) Schizophrenia: Qualified Code: F20.0 - Paranoid schizophrenia Vandana Macdonald MD February 25, 2017 14:25
[2017-02-25 17:17] VITALS: BP 118/62; PULSE 62; RESP 18; TEMP 98; O2SAT 96
[2017-02-25] MEDS: RIVAROXABAN 20 MG TAB PO SCH (18:00)
[2017-02-25] MEDS: DEXTROMETHORPHAN SYRUP 7.5MG/5ML UDC PO PRN (21:21)
[2017-02-25] MEDS: AMANTADINE HCL 100 MG CAP PO SCH (21:21)
[2017-02-26 06:37] VITALS: BP 162/74; PULSE 60; RESP 16; TEMP 97.3; O2SAT 95
[2017-02-26] MEDS: PROPRANOLOL HCL 20 MG TAB PO SCH ×2 (08:57→21:18)
[2017-02-26] MEDS: PANTOPRAZOLE SOD 40 MG DELAYED RELEASE TAB PO SCH (08:57)
[2017-02-26] MEDS: BENZTROPINE MESYLATE 1 MG TAB PO PRN (08:57)
[2017-02-26] MEDS: POTASSIUM CHLORIDE 8 MEQ CAP PO SCH (08:57)
[2017-02-26] MEDS: LISINOPRIL 20 MG TAB PO SCH (08:57)
[2017-02-26] MEDS: PSYLLIUM FIBER SF/GF 6 GM POWD PKT PO SCH (08:57)
[2017-02-26] MEDS: FUROSEMIDE 20 MG TAB PO SCH (08:57)
--- NOTE | 2017-02-26 11:36 | HHI.PYPN ---
Subjective Remarks Pt seen and discussed with staff. Pt is tolerating titration of thorazine without side effects. He is compliant with medications and care. He has been isolative to room today. No SI/HI Objective Alert: Yes [place]: Person, Place Mood: Calm Affect: Restricted Memory Intact: Comment (Not assessed) Hallucinations: Other (Remains internally preoccupied) Delusions: Yes Delusion Type: Paranoid Suicidal: Ideation (No SI) Homicidal: Ideation (No HI) Insight/Judgment poor Vitals/IOs Vital Signs Date Time Temp Pulse Resp B/P Pulse Ox O2 Delivery O2 Flow Rate FiO2 02/26/17 06:37 97.3 60 16 162/74 95 Assessment & Plan Problem List: (1) Schizophrenia ICD Code: F20.9 Assessment & Plan Continue current tx plan. Estimated LOS: days Justification for Cont. Inpt. risk of decompensation Request HC Surrog/Guard Advoc?: Yes Problem Qualifiers (1) Schizophrenia: Qualified Code: F20.0 - Paranoid schizophrenia Vandana Macdonald MD February 26, 2017 11:36
[2017-02-26] MEDS: RIVAROXABAN 20 MG TAB PO SCH (17:33)
[2017-02-26 18:16] VITALS: BP 131/60; PULSE 60; RESP 18; TEMP 97.6; O2SAT 99
[2017-02-26] MEDS: AMANTADINE HCL 100 MG CAP PO SCH (21:18)
[2017-02-27 05:46] VITALS: BP 132/68; PULSE 60; RESP 17; TEMP 97.7; O2SAT 93
[2017-02-27] MEDS: PROPRANOLOL HCL 20 MG TAB PO SCH ×2 (08:39→20:05)
[2017-02-27] MEDS: PSYLLIUM FIBER SF/GF 6 GM POWD PKT PO SCH (08:39)
[2017-02-27] MEDS: PANTOPRAZOLE SOD 40 MG DELAYED RELEASE TAB PO SCH (08:40)
[2017-02-27] MEDS: LISINOPRIL 20 MG TAB PO SCH (08:40)
[2017-02-27] MEDS: FUROSEMIDE 20 MG TAB PO SCH (08:40)
[2017-02-27] MEDS: POTASSIUM CHLORIDE 8 MEQ CAP PO SCH (08:41)
--- NOTE | 2017-02-27 10:10 | HHI.PYPN ---
Subjective Remarks Patient seen and examined with counselor and nurse. Chart reviewed. Case discussed with nursing staff. On my examination today, the patient is initially calm. He remains discharge focused and continues to articulate delusional material as before, insisting that his home is in [place]. He continues to be quite resistive of [facility] placement and gets himself worked up in this regard, noting, "I am not at 62 years old going to any more ALFs! You'd have to dismember my hands and feet [to get him to go]!" Denies side effects from medications. No physical complaints. Review of Systems ROS Limitations: Psychotic, Poor Historian Except as stated in HPI: all other systems reviewed are Neg Objective Alert: Yes [place]: Person, Place Mood: Other (initially calm but remains easily irritable) Affect: Restricted Memory Intact: Comment (Not assessed) Hallucinations: Other (internally preoccupied) Delusions: Yes Delusion Type: Paranoid (paranoid delusions as before) Suicidal: Ideation (no suicidal ideation voiced) Homicidal: Ideation (no homicidal ideation voiced) Insight/Judgment Poor Remarks No motor abnormalities noted Labs Labs reviewed Vitals/IOs Vital Signs Date Time Temp Pulse Resp B/P Pulse Ox O2 Delivery O2 Flow Rate FiO2 02/27/17 05:46 97.7 60 17 132/68 93 Assessment & Plan Problem List: (1) Schizophrenia ICD Code: F20.9 Assessment & Plan Continue to titrate Thorazine to try to target psychosis, 150/300 mg. To consider adding a midday dose. Continue to monitor on the inpatient unit. Continue other medications and care as ordered. Justification for Cont. Inpt. Impairment in reality construction. Medication changes in process. High risk for decompensation in a less restrictive environment. Discharge Planning [facility] psychiatric hospital referral. Assisted living placement if the patient is willing. Request HC Surrog/Guard Advoc?: Yes Problem Qualifiers (1) Schizophrenia: Qualified Code: F20.0 - Paranoid schizophrenia Marques Fregoso MD February 27, 2017 10:10
[2017-02-27 17:12] VITALS: BP 119/65; PULSE 64; RESP 18; TEMP 98.2; O2SAT 98
[2017-02-27] MEDS: RIVAROXABAN 20 MG TAB PO SCH (17:40)
[2017-02-27] MEDS: AMANTADINE HCL 100 MG CAP PO SCH (20:05)
[2017-02-28 06:02] VITALS: BP 134/59; PULSE 61; RESP 18; TEMP 97.2; O2SAT 92
[2017-02-28] MEDS: LISINOPRIL 20 MG TAB PO SCH (09:00)
[2017-02-28] MEDS: POTASSIUM CHLORIDE 8 MEQ CAP PO SCH (09:00)
[2017-02-28] MEDS: FUROSEMIDE 20 MG TAB PO SCH (09:00)
[2017-02-28] MEDS: PROPRANOLOL HCL 20 MG TAB PO SCH ×2 (09:00→21:11)
[2017-02-28] MEDS: PANTOPRAZOLE SOD 40 MG DELAYED RELEASE TAB PO SCH (09:18)
[2017-02-28] MEDS: PSYLLIUM FIBER SF/GF 6 GM POWD PKT PO SCH (09:18)
--- NOTE | 2017-02-28 12:11 | HHI.PYPN ---
Subjective Remarks Patient seen and examined with counselor. Chart reviewed. Case discussed in treatment team. Nursing staff notes that the patient is somewhat more visible on the unit. Occupational therapist reports that the patient is able to sit through groups but continues to self dialogue for much of it. On my examination today, the patient persists in all of his previous delusional material. He insists that he is "not mentally ill and I don't need any assisted living." He says that the treatment team's suggestion that he is mentally ill is "a false accusation" and that we are "violating the eighth commandment." Denies side effects from medications. No physical complaints. I have once again reminded him about his right to file a writ, should he believe he is being retained inappropriately. Review of Systems ROS Limitations: Psychotic, Poor Historian Except as stated in HPI: all other systems reviewed are Neg Objective Alert: Yes [place]: Person, Place Mood: Other (remains somewhat irritable) Affect: Restricted Memory Intact: Comment (Not assessed) Hallucinations: Other (remains somewhat internally stimulated) Delusions: Yes Delusion Type: Paranoid (ongoing paranoid delusions) Suicidal: Ideation (no SI) Homicidal: Ideation (no HI) Insight/Judgment Poor Remarks No motor abnormalities noted. Labs Labs reviewed. No new labs. Vitals/IOs Vital Signs Date Time Temp Pulse Resp B/P Pulse Ox O2 Delivery O2 Flow Rate FiO2 02/28/17 06:02 97.2 61 18 134/59 92 Assessment & Plan Problem List: (1) Schizophrenia ICD Code: F20.9 Assessment & Plan Continue Thorazine as ordered for now to give the patient more of a chance to acclimate to current dose with plans for further titration to target ongoing psychotic symptoms. Continue to monitor on the high acuity unit. Continue other medications and care as ordered. Justification for Cont. Inpt. Impairment in reality construction. Medication changes planned. High risk for decompensation in a less restrictive environment. [facility] Patient remains resistant to assisted living placement. Request HC Surrog/Guard Advoc?: Yes Problem Qualifiers (1) Schizophrenia: Qualified Code: F20.0 - Paranoid schizophrenia Marques Fregoso MD February 28, 2017 12:11
--- NOTE | 2017-02-28 13:52 | PD.TTN ---
Present for Treatment Team Treatment Team Staff: Provider (Dr. Fregoso), Nurse (Karson Mclean), Psych Therapist (Philip Moralez), Occupational Therapist (Geo) Patient Problems 1. Discharge planning 2. Medication compliance 3. Knowledge deficit 4. Lack of coping skills Progress Toward Goals Provider Input: Psychiatrist will continue to work on medication regiment to obtain further stabilization while awaiting placement at [facility]. Nurse Input: Nurse reports that client remains visible on the unit and compliant with his medication. He is easily redirectable and is cooperative with unit expectations. There have been no behavioral outbursts. No reported sleep or appetite disturbance. Psych Therapist Input: Pt continues to appear delusional, paranoid and religiously preoccupied. He refuses placement and states that he wants to live on his own though this is not safe and he has not done so for well over 15 years. He shows poor insight into condition and need for care. Pt is easily agitated in discussion of wanting to go to his home that does not exist. Coping skills remain limited but he is compliant with medication regiment. Persists with belief that he is and his is which is also not accuruate. Occupational Therapist Input: Pt attends group but does not participate and is often seen talking to himself and responding to internal stimuli. He is not reported to be disruptive to the group however. Documentation Scribe: CLAUDIA Figueroa Date Resolved: February 28, 2017 Philip Moralez February 28, 2017 13:52
[2017-02-28] MEDS: RIVAROXABAN 20 MG TAB PO SCH (18:06)
[2017-02-28 18:24] VITALS: BP 120/77; PULSE 68; RESP 18; TEMP 97.9; O2SAT 94
[2017-02-28] MEDS: AMANTADINE HCL 100 MG CAP PO SCH (21:11)
[2017-02-28] MEDS: IBUPROFEN 400 MG TAB PO PRN (21:59)
[2017-03-01 06:00] VITALS: BP 111/58; PULSE 59; RESP 18; TEMP 97.5; O2SAT 96
[2017-03-01] MEDS: LISINOPRIL 20 MG TAB PO SCH (09:00)
[2017-03-01] MEDS: POTASSIUM CHLORIDE 8 MEQ CAP PO SCH (09:00)
[2017-03-01] MEDS: PROPRANOLOL HCL 20 MG TAB PO SCH ×3 (09:00→21:06)
[2017-03-01] MEDS: PANTOPRAZOLE SOD 40 MG DELAYED RELEASE TAB PO SCH (09:21)
[2017-03-01] MEDS: PSYLLIUM FIBER SF/GF 6 GM POWD PKT PO SCH (09:21)
[2017-03-01] MEDS: FUROSEMIDE 20 MG TAB PO SCH (09:21)
--- NOTE | 2017-03-01 11:09 | HHI.PYPN ---
Subjective Remarks Patient seen and examined with counselor and nurse. Chart reviewed. Case discussed with nursing staff reports the patient has been no behavioral problem. On my examination today, the patient persists in his previous delusional material. He remains mildly irritable. He remains quite discharge focused. No physical complaints. No side effects from medications besides some mild tiredness and complaints of constipation, although nursing staff does say that he moved his bowels this morning. Review of Systems ROS Limitations: Psychotic, Poor Historian Except as stated in HPI: all other systems reviewed are Neg Objective Alert: Yes [place]: Person, Place Mood: Calm (mildly irritable) Affect: Restricted Memory Intact: Comment (Not assessed) Hallucinations: Other (internally preoccupied) Delusions: Yes Delusion Type: Paranoid (paranoid delusions as before) Suicidal: Ideation (no SI) Homicidal: Ideation (no HI) Insight/Judgment Poor Remarks No motor abnormalities noted. Labs Labs reviewed. No new labs. Vitals/IOs Vital Signs Date Time Temp Pulse Resp B/P Pulse Ox O2 Delivery O2 Flow Rate FiO2 03/01/17 06:00 97.5 59 18 111/58 96 Assessment & Plan Problem List: (1) Schizophrenia ICD Code: F20.9 Assessment & Plan Continue Thorazine as ordered. Continue to monitor on the inpatient unit. Continue other medications and care as ordered. Justification for Cont. Inpt. High risk for decompensation in a less restrictive environment. Discharge Planning Patient has [facility] psychiatric hospital admission date 03/06. Request HC Surrog/Guard Advoc?: Yes Problem Qualifiers (1) Schizophrenia: Qualified Code: F20.0 - Paranoid schizophrenia Marques Fregoso MD March 01, 2017 11:09
[2017-03-01 18:09] VITALS: BP 114/63; PULSE 69; RESP 18; TEMP 98; O2SAT 99
[2017-03-01] MEDS: RIVAROXABAN 20 MG TAB PO SCH (18:25)
[2017-03-01] MEDS: AMANTADINE HCL 100 MG CAP PO SCH (21:06)
[2017-03-02 06:05] VITALS: BP 137/73; PULSE 71; RESP 18; TEMP 97.2; O2SAT 95
[2017-03-02] MEDS: LISINOPRIL 20 MG TAB PO SCH (08:11)
[2017-03-02] MEDS: PANTOPRAZOLE SOD 40 MG DELAYED RELEASE TAB PO SCH (08:11)
[2017-03-02] MEDS: PSYLLIUM FIBER SF/GF 6 GM POWD PKT PO SCH (08:11)
[2017-03-02] MEDS: diphenhydrAMINE HCL 50 MG CAP PO PRN (08:12)
[2017-03-02] MEDS: PROPRANOLOL HCL 20 MG TAB PO SCH ×2 (08:12→21:00)
[2017-03-02] MEDS: FUROSEMIDE 20 MG TAB PO SCH (08:12)
[2017-03-02] MEDS: POTASSIUM CHLORIDE 8 MEQ CAP PO SCH (08:12)
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
[2017-03-02 15:22] VITALS: BP 107/59; PULSE 66; RESP 18; TEMP 98.4; O2SAT 97
[2017-03-02] MEDS: RIVAROXABAN 20 MG TAB PO SCH (17:43)
[2017-03-02] MEDS: AMANTADINE HCL 100 MG CAP PO SCH (21:00)
[2017-03-03 05:51] VITALS: BP 122/58; PULSE 55; RESP 18; TEMP 97.4; O2SAT 95
[2017-03-03] MEDS: POTASSIUM CHLORIDE 8 MEQ CAP PO SCH (09:00)
[2017-03-03] MEDS: PANTOPRAZOLE SOD 40 MG DELAYED RELEASE TAB PO SCH (09:06)
[2017-03-03] MEDS: PSYLLIUM FIBER SF/GF 6 GM POWD PKT PO SCH (09:06)
[2017-03-03] MEDS: FUROSEMIDE 20 MG TAB PO SCH (09:07)
[2017-03-03] MEDS: LISINOPRIL 20 MG TAB PO SCH (09:07)
[2017-03-03] MEDS: PROPRANOLOL HCL 20 MG TAB PO SCH ×2 (09:07→20:18)
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
[2017-03-03] MEDS ORDERED: LISI-515 PO (10:44)
[2017-03-03] MEDS ORDERED: chlorproMAZINE PO (10:44)
[2017-03-03] MEDS ORDERED: Chlorpromazine PO (10:44)
[2017-03-03] MEDS ORDERED: PANT40TA3 PO (10:44)
[2017-03-03] MEDS ORDERED: KONS100P3 PO (10:44)
[2017-03-03] MEDS ORDERED: FURO20TA PO (10:44)
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
[2017-03-03 15:30] VITALS: BP 121/62; PULSE 63; RESP 18; TEMP 97.6; O2SAT 94
[2017-03-03] MEDS: RIVAROXABAN 20 MG TAB PO SCH (17:33)
[2017-03-03] MEDS: AMANTADINE HCL 100 MG CAP PO SCH (20:17)
[2017-03-03] MEDS: diphenhydrAMINE HCL 50 MG CAP PO PRN (20:18)
[2017-03-04 06:00] VITALS: BP 113/56; PULSE 56; RESP 18; TEMP 98; O2SAT 95
[2017-03-04] MEDS: PROPRANOLOL HCL 20 MG TAB PO SCH ×2 (08:16→21:27)
[2017-03-04] MEDS: PSYLLIUM FIBER SF/GF 6 GM POWD PKT PO SCH (08:17)
[2017-03-04] MEDS: LISINOPRIL 20 MG TAB PO SCH (08:17)
[2017-03-04] MEDS: PANTOPRAZOLE SOD 40 MG DELAYED RELEASE TAB PO SCH (08:17)
[2017-03-04] MEDS: FUROSEMIDE 20 MG TAB PO SCH (08:17)
[2017-03-04] MEDS: POTASSIUM CHLORIDE 8 MEQ CAP PO SCH (09:00)
--- NOTE | 2017-03-04 11:40 | HHI.PYPN ---
Subjective Remarks Pt seen and discussed with staff. Pt has been compliant wiht medications and he denies medication side effects. He is paranoid and labile at times, but has not been disruptive on unit. He states that his mood is fine and he denies SI/HI. He has been isolative to room and states that he is catching up on rest. Objective Alert: Yes [place]: Person, Place Mood: Calm Affect: Restricted Memory Intact: Comment (Not assessed) Hallucinations: Other (internally preoccupied) Delusions: Yes Delusion Type: Paranoid Suicidal: Ideation (No SI) Homicidal: Ideation (No HI) Insight/Judgment poor Vitals/IOs Vital Signs Date Time Temp Pulse Resp B/P Pulse Ox O2 Delivery O2 Flow Rate FiO2 03/04/17 06:00 98.0 56 18 113/56 95 Assessment & Plan Problem List: (1) Schizophrenia ICD Code: F20.9 Assessment & Plan Continue current tx plan. Transfer to [facility] hospital pending Estimated LOS: days Justification for Cont. Inpt. risk of decompensation in lower setting Request HC Surrog/Guard Advoc?: Yes Problem Qualifiers (1) Schizophrenia: Qualified Code: F20.0 - Paranoid schizophrenia Vandana Macdonald MD Mar 04, 2017 11:40
[2017-03-04 15:20] VITALS: BP 123/63; PULSE 57; RESP 18; TEMP 97.7; O2SAT 95
[2017-03-04] MEDS: RIVAROXABAN 20 MG TAB PO SCH (16:51)
[2017-03-04] MEDS: AMANTADINE HCL 100 MG CAP PO SCH (21:27)
[2017-03-05 05:53] VITALS: PULSE 57; RESP 18; TEMP 98.2; O2SAT 96
[2017-03-05] MEDS: PROPRANOLOL HCL 20 MG TAB PO SCH ×2 (08:58→20:12)
[2017-03-05] MEDS: POTASSIUM CHLORIDE 8 MEQ CAP PO SCH (08:59)
[2017-03-05] MEDS: LISINOPRIL 20 MG TAB PO SCH (08:59)
[2017-03-05] MEDS: FUROSEMIDE 20 MG TAB PO SCH (09:00)
[2017-03-05] MEDS: PANTOPRAZOLE SOD 40 MG DELAYED RELEASE TAB PO SCH (09:00)
[2017-03-05] MEDS: PSYLLIUM FIBER SF/GF 6 GM POWD PKT PO SCH (09:00)
--- NOTE | 2017-03-05 13:45 | HHI.PYPN ---
Subjective Remarks Pt seen and discussed with staff. He has been cooperative with medications and denies side effects. No behavioral problems on unit. He presses for discharge, requesting a beach house. No SI/HI. Objective Alert: Yes [place]: Person, Place Mood: Calm Affect: Restricted Memory Intact: Comment (Not assessed) Hallucinations: Other (internally preoccupied) Delusions: Yes Delusion Type: Paranoid Suicidal: Ideation (No SI) Homicidal: Ideation (No HI) Insight/Judgment poor Vitals/IOs Vital Signs Date Time Temp Pulse Resp B/P Pulse Ox O2 Delivery O2 Flow Rate FiO2 03/05/17 05:53 98.2 57 18 96 03/04/17 15:20 123/63 Assessment & Plan Problem List: (1) Schizophrenia ICD Code: F20.9 Assessment & Plan Continue current tx plan. Pt is to transfer [facility] tomorrow. Estimated LOS: days Justification for Cont. Inpt. impairments in reality construction Request HC Surrog/Guard Advoc?: Yes Problem Qualifiers (1) Schizophrenia: Qualified Code: F20.0 - Paranoid schizophrenia Vandana Macdonald MD Mar 05, 2017 13:45
[2017-03-05] MEDS: RIVAROXABAN 20 MG TAB PO SCH (17:44)
[2017-03-05 19:23] VITALS: BP 130/68; PULSE 82; TEMP 97.4; O2SAT 98
[2017-03-05] MEDS: AMANTADINE HCL 100 MG CAP PO SCH (20:12)
[2017-03-06 05:48] VITALS: BP 139/67; PULSE 62; RESP 18; TEMP 97.6; O2SAT 95
[2017-03-06] MEDS: PROPRANOLOL HCL 20 MG TAB PO SCH (07:49)
[2017-03-06] MEDS: PANTOPRAZOLE SOD 40 MG DELAYED RELEASE TAB PO SCH (07:49)
[2017-03-06] MEDS: LISINOPRIL 20 MG TAB PO SCH (07:50)
[2017-03-06] MEDS: hydrOXYzine HCL 50 MG TAB PO PRN (07:50)
[2017-03-06] MEDS: POTASSIUM CHLORIDE 8 MEQ CAP PO SCH (07:51)
[2017-03-06] MEDS: PSYLLIUM FIBER SF/GF 6 GM POWD PKT PO SCH (07:51)
[2017-03-06] MEDS: FUROSEMIDE 20 MG TAB PO SCH (07:52)
== END 2017-03-06 07:50 | DRG 885 ==
LOC: NEPC 01:07 → NEDA 12-20 01:35 → H260 12-20 02:10 → H270 12-20 09:35 → H260 12-20 10:15 → H270 01-01 09:35
PROVIDERS: ADMIT Psychiatry & Neurology Psychiatry; ATTEND Psychiatry & Neurology Psychiatry
DX: F20.0 Paranoid schizophrenia (principal); E87.1 Hypo-osmolality and hyponatremia; I10 Essential (primary) hypertension; E78.5 Hyperlipidemia, unspecified; R45.1 Restlessness and agitation; Z86.711 Personal history of pulmonary embolism; Z91.14 Patient's other noncompliance with medication regimen; R60.0 Localized edema; E78.00 Pure hypercholesterolemia, unspecified; I25.10 Atherosclerotic heart disease of native coronary artery without angina pectoris; I25.2 Old myocardial infarction; K21.9 Gastro-esophageal reflux disease without esophagitis; K59.00 Constipation, unspecified; M10.9 Gout, unspecified
CPT/HCPCS: 71010; 80048; 80053; 80061; 80307; 81001; 82550; 83036; 83735; 84295; 84484; 85025; 86703; 93005; Q0163